=== PATIENT | male | born 1975 | race Caucasian/White ===

== ENCOUNTER 2019-07-28 13:37 | Inpatient (IN) ==
[2019-07-28 14:20] LABS: Basophils # (auto) 0.02 K/uL (0-0.2); Basophils % (auto) 0.2 %; Eosinophils # (auto) 0.05 K/uL (0-0.5); Eosinophils % (auto) 0.6 %; Hematocrit (blood only) 50.2 % (42-52); Hemoglobin 17.1 g/dL (14.0-18.0); Immature Granulocytes # (auto) 0.02 K/uL (0.00-0.02); Immature Granulocytes % (auto) 0.2 %; Lymphocytes % (auto) 23.2 %; Mean Corpuscular Hemoglobin 33.6 pg (25-34); Mean Corpuscular Hgb Conc 34.1 g/dL (32-36); Mean Corpuscular Volume 98.6 fL (80-100); Mean Platelet Volume 9.8 fL (7.4-10.4); Monocytes # (auto) 0.59 K/uL (0.11-0.59); Monocytes % (auto) 6.5 %; Neutrophils # (auto) 6.29 K/uL (1.4-6.5); Neutrophils % (auto) 69.3 %; Platelet Count 312 K/uL (130-400); RDW Coefficient of Variation 12.9 % (11.5-14.5); RDW Standard Deviation 46.4 fL (36.4-46.3); Red Blood Count 5.09 M/uL (4.7-6.1); White Blood Count 9.07 K/uL (4.8-10.8)
[2019-07-28 14:36] LABS: BUN Creatinine Ratio 10.8 (10-20); Calcium 9.1 mg/dl (8.5-10.1); Creatinine Clr Calc Pharmacy 75.5 ml/min; Est GFR (African American) 63.8; INR 1.3 (0.9-1.1); Partial Thromboplastin Time 26.8 Seconds (21.0-31.0); Potassium 4.8 mmol/L (3.5-5.1)
[2019-07-28 14:37] LABS: Albumin Level 3.4 gm/dl (3.4-5.0)
--- NOTE | 2019-07-28 14:39 | XRay Report ---
XR chest 1V portable HISTORY: 44 years-old Male Chest Pain acute atypical chest pain COMPARISON: None available TECHNIQUE: Portable AP view of the chest FINDINGS: Cardiac silhouette is mildly enlarged, possibly accentuated by technique. No pneumothorax, pleural ef fusion or overt pulmonary edema. Patchy alveolar opacities of the right lung base measure up to 5.2 c m. Mild degenerative changes of the shoulders and spine. IMPRESSION: Airspace consolidation of the right lung base measuring up to 5.2 cm suggests pneumonia in the proper clinical setting. Short-term follow-up is needed to document resolution and exclude underlying pulmo nary lesion. The above report was generated using voice recognition software. It may contain grammatical, syntax o r spelling errors. Electronically signed by: Jimi Okeefe M.D. 07/28/2019 2:37 PM
[2019-07-28 14:49] LABS: Magnesium 2.3 mg/dl (1.8-2.4); Thyroid Stimulating Hormone 6.25 uIu/ml (0.300-4.500)
[2019-07-28 14:51] LABS: Albumin Globulin Ratio 0.9 (0.9-2); Bilirubin,Total 1.3 mg/dl (0.2-1); Globulin 3.6 gm/dl (2.5-4.0); Troponin I 0.276 ng/ml (0-0.045)
[2019-07-28] MEDS ORDERED: AZITHROMYCIN 250 MG TAB PO ONE (14:56)
[2019-07-28] MEDS ORDERED: cefTRIAXone SODIUM 2,000 MG/70 ML BAG IV STA (14:56)
[2019-07-28] MEDS ORDERED: ASPIRIN CHEW 324 MG PO STA (14:56)
[2019-07-28 15:01] LABS: T4 Free Thyroxine 1.54 ng/dl (0.8-1.6)
[2019-07-28] MEDS ORDERED: OPTIRAY 320 125ml IV PRN (15:51)
--- NOTE | 2019-07-28 16:10 | CT Scan Report ---
CHEST CTA for PULMONARY ARTERIES CT DOSE: 616.78 mGy.cm HISTORY: Atypical chest pain. TECHNIQUE: Multiaxial CT images of the chest were performed following the intravenous administration of contrast to evaluate the pulmonary arteries. Maximal intensity projection images were also obtaine d. A dose lowering technique was utilized adhering to the principles of ALARA. COMPARISON STUDY: Chest 07/28/2019. FINDINGS: Trace pericardial effusion. Small right pleural effusion. Retrograde opacification of the I VC. Small amount of upper abdominal ascites. The visualized liver and spleen are unremarkable. The he art is mildly enlarged. Mildly enlarged mediastinal lymph nodes. Dominant subcarinal lymph node measu res 1.5 cm in short axis diameter. There is also a 1.7 cm AP window lymph node. No significant hilar lymphadenopathy. Normal esophagus. Normal caliber thoracic aorta. Inadequate opacification of the aor ta to assess for a dissection. No filling defects within the pulmonary arteries to suggest pulmonary embolus. No suspicious lytic are blastic osseous lesions. No pneumothorax. The central airways are pa tent. There are multiple irregular scattered airspace opacities within the bilateral mid to lower lyndon g zones, right greater than left. Findings favor a multifocal pneumonia. IMPRESSION: 1. No evidence for pulmonary embolus. 2. Multifocal irregular airspace opacities within the bilateral mid to lower lung zones, right greate r than left. This favors a pneumonia. However, follow-up recommended to ensure resolution. 3. Small right pleural effusion. 4. Mild cardiac megaly. 5. Mild mediastinal lymphadenopathy. This could be reactive. This also bears watching on future exami nations. 6. Small amount of ascites. 7. Trace pericardial effusion. Electronically signed by: Greg Real M.D. 07/28/2019 4:08 PM
--- NOTE | 2019-07-28 16:31 | Emergency Department Note ---
Entered by Kaylah Vargas acting as a scribe for Sander Dove MD History of Present Illness General Chief complaint: Cardiac Assessment Stated complaint: TIGHTNESS IN CHEST,EDEMA LEFT LEG Time Seen by Provider: 07/28/19 14:07 Source: patient and family History of Present Illness Provider complaint: chest pain Onset (ago): week(s) (several) Location: chest Radiation: non-radiation Pain Consistency: + other (worsening) Maximum Pain Intensity: 8 Quality: + other (tightness) Associated symptoms: + loss of appetite, + shortness of breath and + other (+fatigue, +abdominal bloating, -difficulty urinating, -changes in bowel movement) The patient is a 44 male w/ PMHx of bronchitis who presents to the ED w/ CC of chest pain beginning several weeks ago. The patients family reports that the patient has been experiencing worsening chest tightness for the past several weeks. They state that the patient recently was experiencing bronchitis and was prescribed a Z-crystal and Prednisone. They note that his symptoms did not alleviate his symptoms so they prescribed Doxycycline. They report that the patient has been experiencing abdominal bloating and chest tightness since then. They report that the patient has gained 10-15 pounds. They report that the patient has had a lack of sleep because of the abdominal bloating. They report that the patient had a low pressure prior to arrival. The patient states that burping alleviates his symptoms. He states that he has shortness of breath. He denies any difficulty urination. He notes that he has had normal bowel movements. He mentions that he is a former smoker and drinks occasionally. Home Medications Home Medications Medication Instructions Recorded Confirmed Type No Known Home Medications 07/28/19 07/28/19 History Allergies Allergy/AdvReac Type Severity Reaction Status Date / Time No Known Allergies Allergy Unverified 07/28/19 14:21 Past Med/Surg History Medical History Bronchitis Social History Feels Safe at Home: Yes Smoking Status: Former smoker Review of Systems See HPI for pertinent positives & negatives. and A total of 10 systems reviewed and were otherwise negative Physical Exam Vital Signs Vital Signs - 24 hr 07/28/19 13:47 07/28/19 13:54 07/28/19 13:59 Temperature 36.4 C L Temperature Source Oral Pulse Rate 121 H Pulse Rate [Apical] Respiratory Rate 24 Respiratory Effort / Characteristics Spontaneous Respiratory Depth Respiratory Pattern Blood Pressure 142/99 H Blood Pressure [Right Arm] Blood Pressure Mean 113 Blood Pressure Mean [Right Arm] Blood Pressure Position [Right Arm] Pulse Oximetry 98 94 Oxygen Delivery Method Room Air Room Air Room Air Sepsis Recent Fever Within 48 Hours No Sepsis New/Unexplained Change in Mental Status No Sepsis Action Taken by Nursing No Action Required 07/28/19 14:00 07/28/19 15:58 Temperature Temperature Source Pulse Rate Pulse Rate [Apical] 119 H Respiratory Rate 15 Respiratory Effort / Characteristics Non-Labored Respiratory Depth Normal Respiratory Pattern Regular Blood Pressure Blood Pressure [Right Arm] 118/92 Blood Pressure Mean Blood Pressure Mean [Right Arm] 100 Blood Pressure Position [Right Arm] Sitting Pulse Oximetry 94 100 Oxygen Delivery Method Room Air Room Air Sepsis Recent Fever Within 48 Hours Sepsis New/Unexplained Change in Mental Status Sepsis Action Taken by Nursing GENERAL: Well nourished, non-toxic. EYE EXAM: Normal conjunctiva. PERRL, no anisocoria and EOM's grossly intact w/o pain. OROPHARYNX: Moist mucous membranes. Grossly normal dentition. NECK: Supple, no nuchal rigidity, no adenopathy, non-tender. No signs of meningismus. LUNGS: Clear to auscultation. Normal chest wall mechanics. HEART: Tachycardic rate and regular rhythm, no MRG. ABDOMEN: Abdomen soft, non-tender, normo-active bowel sounds, no masses, no rebound or guarding. BACK: No CVA TTP. SKIN: No rashes and no bruising. UPPER EXTREMITIES: Upper extremities are grossly normal. LOWER EXTREMITIES: 3-4+ pitting bilateral symmetric lower extremity edema, without erythema or calf pain. NEURO EXAM: A&O x3, cranial nerves II-XII grossly intact, normal speech, moves all 4 extremities on command w/o issue. Procedures Free Text Procedures Limited Point of Care Cardiac Ultrasound performed by me: Indication: LE swelling, tachycardia, SOB Findings: Limited echocardiography revealed no pericardial fluid. Wall motion appeared diffusely decreased. HR 120s. Additional findings: No obvious pericardial effusion, depressed EF, no obvious septal bowing. Impression: Depressed EF, no pericardial effusion, decreased contractility Course Course 1406: The patient was evaluated in room A12B, and a complete history and physical examination were performed. 1524: I reevaluated the patient and updated him on his results. I performed a point of care US. 1527: I reviewed the patient's case with Dr. Parks- [facility] Hospitalist. He will evaluate the patient for further management. Administered Medications Ioversol (Optiray 320 125ml) 120 ml IV ONCE PRN PRN Reason: Interaction Checking Stop: 08/01/19 15:50 Last Admin: 07/28/19 15:52 Dose: 120 ml Documented by: [id number] Discontinued Medications Aspirin (Aspirin) 324 mg PO NOW STA Stop: 07/28/19 14:57 Last Admin: 07/28/19 15:09 Dose: 324 mg Documented by: [id number] Medical Decision Making Medical Records Attestation: I reviewed the patient's medical records. Home Medications Current Medication List: was personally reviewed by me Laboratory Data Attestation: I reviewed the patient's lab results. Result diagrams: 07/28/19 14:11 07/28/19 14:11 Lab Results 07/28/19 07/28/19 07/28/19 Range/Units 14:11 14:11 14:11 WBC 9.07 (4.8-10.8) K/uL RBC 5.09 (4.7-6.1) M/uL Hgb 17.1 (14.0-18.0) g/dL Hct 50.2 (42-52) % MCV 98.6 (80-100) fL MCH 33.6 (25-34) pg MCHC 34.1 (32-36) g/dL RDW Std Deviation 46.4 H (36.4-46.3) fL RDW Coeff of Leona 12.9 (11.5-14.5) % Plt Count 312 (130-400) K/uL MPV 9.8 (7.4-10.4) fL Immature Gran % (Auto) 0.2 % Neut % (Auto) 69.3 % Lymph % (Auto) 23.2 % Livingston % (Auto) 6.5 % Eos % (Auto) 0.6 % Baso % (Auto) 0.2 % Immature Gran # (Auto) 0.02 (0.00-0.02) K/uL Neut # (Auto) 6.29 (1.4-6.5) K/uL Lymph # (Auto) 2.10 (1.2-3.4) K/uL Livingston # (Auto) 0.59 (0.11-0.59) K/uL Eos # (Auto) 0.05 (0-0.5) K/uL Baso # (Auto) 0.02 (0-0.2) K/uL PT 13.0 H (9.0-12.0) Seconds INR 1.3 H (0.9-1.1) APTT 26.8 (21.0-31.0) Seconds PTT Ratio 1.0 Sodium 132 L (136-145) mmol/L Potassium 4.8 (3.5-5.1) mmol/L Chloride 100 (98-107) mmol/L Carbon Dioxide 21 (21-32) mmol/L Anion Gap 12.0 H (3-11) BUN 16 (7-18) mg/dl Creatinine 1.50 H (0.6-1.4) mg/dl Est Cr Clr Drug Dosing 75.5 ml/min Est GFR ( Amer) 63.8 Est GFR (Non-Af Amer) 55.0 BUN/Creatinine Ratio 10.8 (10-20) Glucose 141 H (70-99) mg/dl Lactate (0.4-2.0) mmol/L Calcium 9.1 (8.5-10.1) mg/dl Magnesium (1.8-2.4) mg/dl Total Bilirubin 1.3 H (0.2-1) mg/dl AST 33 (15-37) U/L ALT 20 (12-78) U/L Alkaline Phosphatase 122 H (45-117) U/L Troponin I 0.276 H* (0-0.045) ng/ml NT-Pro-B Natriuret Pep (0-450) pg/ml Total Protein 7.0 (6.4-8.2) gm/dl Albumin 3.4 (3.4-5.0) gm/dl Globulin 3.6 (2.5-4.0) gm/dl Albumin/Globulin Ratio 0.9 (0.9-2) Lipase 85 (73-393) U/L TSH (0.300-4.500) uIu/ml Free T4 (0.8-1.6) ng/dl 07/28/19 07/28/19 Range/Units 14:11 15:15 WBC (4.8-10.8) K/uL RBC (4.7-6.1) M/uL Hgb (14.0-18.0) g/dL Hct (42-52) % MCV (80-100) fL MCH (25-34) pg MCHC (32-36) g/dL RDW Std Deviation (36.4-46.3) fL RDW Coeff of Leona (11.5-14.5) % Plt Count (130-400) K/uL MPV (7.4-10.4) fL Immature Gran % (Auto) % Neut % (Auto) % Lymph % (Auto) % Livingston % (Auto) % Eos % (Auto) % Baso % (Auto) % Immature Gran # (Auto) (0.00-0.02) K/uL Neut # (Auto) (1.4-6.5) K/uL Lymph # (Auto) (1.2-3.4) K/uL Livingston # (Auto) (0.11-0.59) K/uL Eos # (Auto) (0-0.5) K/uL Baso # (Auto) (0-0.2) K/uL PT (9.0-12.0) Seconds INR (0.9-1.1) APTT (21.0-31.0) Seconds PTT Ratio Sodium (136-145) mmol/L Potassium (3.5-5.1) mmol/L Chloride (98-107) mmol/L Carbon Dioxide (21-32) mmol/L Anion Gap (3-11) BUN (7-18) mg/dl Creatinine (0.6-1.4) mg/dl Est Cr Clr Drug Dosing ml/min Est GFR ( Amer) Est GFR (Non-Af Amer) BUN/Creatinine Ratio (10-20) Glucose (70-99) mg/dl Lactate 2.3 H* (0.4-2.0) mmol/L Calcium (8.5-10.1) mg/dl Magnesium 2.3 (1.8-2.4) mg/dl Total Bilirubin (0.2-1) mg/dl AST (15-37) U/L ALT (12-78) U/L Alkaline Phosphatase (45-117) U/L Troponin I (0-0.045) ng/ml NT-Pro-B Natriuret Pep 6646 H (0-450) pg/ml Total Protein (6.4-8.2) gm/dl Albumin (3.4-5.0) gm/dl Globulin (2.5-4.0) gm/dl Albumin/Globulin Ratio (0.9-2) Lipase (73-393) U/L TSH 6.250 H (0.300-4.500) uIu/ml Free T4 1.54 (0.8-1.6) ng/dl Imaging Data Radiologist's Impression: Radiology results as stated below per my review and the radiologist's interpretation: XR chest 1V portable HISTORY: 44 years-old Male Chest Pain acute atypical chest pain COMPARISON: None available TECHNIQUE: Portable AP view of the chest FINDINGS: Cardiac silhouette is mildly enlarged, possibly accentuated by technique. No p neumothorax, pleural effusion or overt pulmonary edema. Patchy alveolar opacities of the right lung base measure up to 5.2 cm. Mild degenerative changes of the shoulders and spine. IMPRESSION: Airspace consolidation of the right lung base measuring up to 5.2 cm suggests pneumonia in the proper clinical setting. Short-term follow-up is needed to document resolution and exclude underlying pulmonary lesion. The above report was generated using voice recognition software. It may contain grammatical, syntax or spelling errors. Electronically signed by: Jimi Okeefe M.D. 07/28/2019 2:37 PM CHEST CTA for PULMONARY ARTERIES CT DOSE: 616.78 mGy.cm HISTORY: Atypical chest pain. TECHNIQUE: Multiaxial CT images of the chest were performed following the intravenous administration of contrast to evaluate the pulmonary arteries. Maximal intensity projection images were also obtained. A dose lowering technique was utilized adhering to the principles of ALARA. COMPARISON STUDY: Chest 07/28/2019. FINDINGS: Trace pericardial effusion. Small right pleural effusion. Retrograde opacification of the IVC. Small amount of upper abdominal ascites. The visualized liver and spleen are unremarkable. The heart is mildly enlarged. Mildly enlarged mediastinal lymph nodes. Dominant subcarinal lymph node measures 1.5 cm in short axis diameter. There is also a 1.7 cm AP window lymph node. No significant hilar lymphadenopathy. Normal esophagus. Normal caliber thoracic aorta. Inadequate opacification of the aorta to assess for a dissection. No filling defects within the pulmonary arteries to suggest pulmonary embolus. No suspicious lytic are blastic osseous lesions. No pneumothorax. The central airways are patent. There are multiple irregular scattered airspace opacities within the bilateral mid to lower lung zones, right greater than left. Findings favor a multifocal pneumonia. IMPRESSION: 1. No evidence for pulmonary embolus. 2. Multifocal irregular airspace opacities within the bilateral mid to lower lung zones, right greater than left. This favors a pneumonia. However, follow-up recommended to ensure resolution. 3. Small right pleural effusion. 4. Mild cardiac megaly. 5. Mild mediastinal lymphadenopathy. This could be reactive. This also bears kevin bryson on future examinations. 6. Small amount of ascites. 7. Trace pericardial effusion. Electronically signed by: Greg Real M.D. 07/28/2019 4:08 PM ECG Data Attestation: I personally reviewed and interpreted this ECG as follows: Indication: + chest pain Rate (beats per minute): 121 Rhythm: + sinus tachycardia ECG Findings: + Q waves (anteriorly ) and + Other (Normal intervals, no obvious ischemic changes) Blood Pressure Blood Pressure Findings: Elevated blood pressure Blood Pressure Disposition: further management by hospitalist BRYAN Diggs Differential diagnosis: Etiologies such as metabolic, infection, hypo/hyper glycemia, electrolyte abnormalities, cardiac sources, intracerebral event, toxicologic, neurologic, as well as others were entertained. The patient is a 44 male w/ PMHx of bronchitis who presents to the ED w/ CC of chest pain beginning several weeks ago. Patient was seen and evaluated the bedside. The patient has had increasing fatigue associated mild exertional dyspnea. Lower extremity swelling. The patient did have blood work completed. The patient does have a positive troponin and BNP. The patient does appear volume overloaded. I did perform a [id number] ultrasound of the bedside which does not show any obvious pericardial effusion but the patient does appear to have diffuse hypokinesis and decreased ejection fraction. Did order a CAT scan of the chest. Patient was evidently admitted to the medicine service. Patient was given aspirin. Patient CT shows trace pericardial and right-sided pleural effusion. Likely pneumonia. No PE. Impression & Plan CHF (congestive heart failure), Elevated troponin, Pneumonia Discharge Plan Visit Data Chief Complaint: Cardiac Assessment Stated Complaint: TIGHTNESS IN CHEST,EDEMA LEFT LEG ED Provider: Sander Dove Discharge Problem: CHF (congestive heart failure), Elevated troponin, Pneumonia Patient Disposition: Being Evaluated by Hospitalist Forms Stand Alone Forms: My [facility] Prescriptions Prescriptions: No Action No Known Home Medications RF: 0 Referrals Referrals: Benedict Avalos MD [Primary Care Provider] - Discharge Problem: CHF (congestive heart failure) Qualifiers: Heart failure type: unspecified Heart failure chronicity: unspecified Qualified Code(s): I50.9 - Heart failure, unspecified Pneumonia Qualifiers: Pneumonia type: due to unspecified organism Laterality: right Lung location: lower lobe of lung Qualified Code(s): J18.1 - Lobar pneumonia, unspecified organism The scribe's documentation has been prepared under my direction and personally reviewed by me in its entirety. I confirm that the note above accurately reflect s all work, treatment, procedures, and medical decision making performed by me.
[2019-07-28 17:19] LABS: Appearance Urine Clear (Clear); Bacteria Urine Automated Negative (Negative); Blood Urine Negative (Negative); Color Urine Dark Yellow; Epithelial Cell Urine Auto >30 /lpf (0-5); Glucose Urine UA Negative (Negative); Ketones Urine Trace (Negative); Leukocyte Esterase Urine Trace (Negative); Nitrite Urine Positive (Negative); Protein Urine 2+ (Negative); Specific Gravity Urine > 1.045 (1.000-1.030); Urobilinogen Urine Negative (Negative); pH Urine 5.5 (4.5-7.5)
[2019-07-28 17:22] LABS: Bilirubin Urine 1+ (Negative)
[2019-07-28 17:23] LABS: Ictotest Urine Positive (Negative)
[2019-07-28 17:42] LABS: Cast Urine Automated >30 /lpf (0-5)
--- NOTE | 2019-07-28 17:46 | History & Physical Report ---
Date of Service July 28, 2019 Assessment & Plan (1) CHF (congestive heart failure): Admit patient to PCU on telemetry for acute onset of congestive heart failure. Discussed with -cardiology. His opinion was to treat patient as acute onset of congestive heart failure with Lasix, aspirin, heparin drip for elevated troponin. TTE pending Lipid panel pending Trend down BNP Replenish electrolytes as needed Check CBC and CMP daily Free water restriction to 1200 mils p.o. daily. Low-sodium diet Furosemide 40 mg IV twice daily, with expectant loss of 1.5 L/day. Keep potassium above 4 and magnesium above 2. Consult cardiology Consults CHF clinic for follow-up. Patient would possibly need cardiac catheterization, please discuss further with cardiology. DVT prophylaxis; patient is on heparin drip for elevated troponin. Full code Present on Admission?: Yes (2) Acute kidney injury: Avoid nephrotoxic agents. Due to emergent issue of acute onset of congestive heart failure patient is on furosemide 40 mg IV twice daily. Monitor closely. Decrease the dose if this is severely affecting patient's kidneys. Present on Admission?: Yes (3) Urinary tract infection: Patient urine is not a clean-catch but it is difficult at this point to rule out urinary tract infection. We will presumptively continue ceftriaxone that was already started in the emergency room. Present on Admission?: Yes (4) Elevated troponin: Could be related to demand ischemia, but NSTEMI is not excluded. Restarted patient on heparin drip and trend down troponin. Present on Admission?: Yes (5) Pneumonia: Procalcitonin is negative 0.1. Patient less likely has pneumonia, and infiltrate seen on the CT scan could be result of congestive heart failure rather than pneumonia. He was treated for 5 weeks with Z-Xavi and doxycycline. Patient is now on ceftriaxone for urinary tract infection. Present on Admission?: Yes (6) Discharge planning issues: Expectant stayed more than 2 nights. Discharge home when clinically improved. Present on Admission?: Yes History of Present Illness Chief Complaint: Chest pain, abdominal pain weight gain and swelling all over his body Primary Care Provider: Benedict Avalos MD Patient is a 44 years old male without significant past medical history except for bronchitis that was treated with doxycycline, azithromycin and prednisone approximately for the past 5 weeks as an outpatient. Patient states that for the past several days he is gaining weight and his legs are swelling. He has constant urge to burp and feels a lot of pressure in his abdomen and this morning he experienced a lots of chest pain which improved during the day but he still feels congested. Patient has significant family history that he is a grandfather young from the heart issues but he was not sure what was his age when he . Patient gained approximately 10 to 15 pounds in the past several days. He said that his sleep is significantly disturbed because his abdomen is bloated. He reports having regular bowel movements. On occasion patient feels short of breath. Patient reports being exposed to lots of stress lately but does not go further and explanation what was stressed about. Patient reports that he smoked in the past but quit smoking for several years and he drinks only occasionally. He denies any drug abuse. At the present time patient denies fever, chills, chest pain, abdominal pain, frequency, urgency, syncope near syncope, melena hematuria, hemoptysis or bruising. He is pleasant in person and agreeable with treatment. Labs are reviewed: Which shows white blood cell of 9.07, hemoglobin 17.1, hematocrit 50.2, platelets 312, there is no left shift. PT 13, INR 1.3 APTT 26.8, PTT 1. Sodium 132, potassium 4.8, chloride 100, carbon dioxide 21 anion gap 12, BUN 16, creatinine 1.5-previously creatinine was 1.24 on July 24, 2019, GFR 55, lactic acid 2.3, calcium 9.1 magnesium 2.3: Total bili 1.3, AST 33, ALT 20, alkaline phosphatase 122, troponin 0.276, alkaline phosphatase 6646, TSH of 6.25 and free T4 1.54 subclinical hypothyroidism. Urine infection positive for nitrates and trace leukocyte esterase with many epithelial cells over 30 bacteria negative, does not appear to be a clean-catch. CTA of chest to rule out pulmonary embolism shows no evidence of pulmonary embolus, multifocal irregular 8 space opacities within the bilateral mid to lower lung zones, right greater than left, this favors a pneumonia. Small right pleural effusion, mild cardiomegaly. Mild mediastinal lymphadenopathy. This could be reactive. Small amount of ascites. Trace pericardial effusion. Additional decision was made to admit patient for onset congestive heart failure at PCU on telemetry. Allergies Allergy/AdvReac Type Severity Reaction Status Date / Time No Known Allergies Allergy Unverified 07/28/19 14:21 Home Medications Home Medications Medication Instructions Recorded Confirmed Type No Known Home Medications 07/28/19 07/28/19 History Past Med/Surg History Medical History Bronchitis Social History Preferred Language: Citizen Of [place] Beliefs That Will Affect Care: None Current Living Situation: Alone Feels Safe at Home: Yes Safety Concerns: Feels Safe At This Time Smoking Status: Former smoker Hx Alcohol Use: Yes Alcohol type: beer Hx Substance Use: No Review of Systems Review of Systems: All systems reviewed & are unremarkable except as noted in HPI & below Physical Exam Constitutional: WD/WN, vitals as above well developed, + ill appearing and average body habitus Eyes: PERRL, conjunctivae normal, anicteric sclerae ENMT: external ear and nose normal, oropharynx normal Neck: trachea midline, no thyromegaly Respiratory: Auscultation: + crackles and + wheezes Cardiovascular: Heart Sounds: normal S1 and normal S2 Palpation: + palpable S3 Vessels: + JVD and dorsalis pedis pulses present Extremities: + pedal edema and + edema (Patient body appears to be a dermatosis or up until the umbilicus. Pitting edema of lower extremity 2+.) Gastrointestinal (Abdomen): normal bowel sounds, soft, nontender, no hepatosplenomegaly Musculoskeletal: no cyanosis or clubbing, extremities motor strength 5/5 Skin: no rashes, warm and dry Neurologic: patellar DTR's 2+ bilat, sensation intact Genitourinary: no testicular masses, no penis abnormality Lymphatic: no cervical or axillary lymphadenopathy Results & Data Vital Signs (Past 12 Hours) Vital Signs Temp Pulse Pulse Resp BP BP Pulse Ox 07/28/19 17:21 117/92 07/28/19 17:00 114 H 19 94 07/28/19 15:58 119 H 15 118/92 100 07/28/19 14:00 94 07/28/19 13:59 94 07/28/19 13:47 36.4 C L 121 H 24 142/99 H 98 Code Status & VTE Plan Code Status Full code VTE Prophylaxis Plan VTE Prophylaxis will be ordered: Yes PG Care Time/CCT Total # of Minutes Spent Total Time Spent with Patient: Total time spent is greater than 50% in coordination of care (as documented) at patient's floor/unit and/or counseling patient: (1) CHF (congestive heart failure) Heart failure chronicity: unspecified Heart failure type: unspecified Qualified Code(s): I50.9 - Heart failure, unspecified (2) Pneumonia Laterality: right Lung location: lower lobe of lung Pneumonia type: due to unspecified organism Qualified Code(s): J18.1 - Lobar pneumonia, unspecified organism
[2019-07-28] MEDS ORDERED: MAGNESIUM HYDROXIDE SUSP 30 ML UDC PO PRN (18:55)
[2019-07-28] MEDS ORDERED: ALUMINUM/MAGNESIUM SUSP 30 ML UDC PO PRN (18:55)
[2019-07-28] MEDS ORDERED: FUROSEMIDE 40 MG/4 ML VIAL IV STA (18:55)
[2019-07-28] MEDS ORDERED: POLYETHYLENE (MIRALAX) 17 GM PACK PO PRN (18:55)
[2019-07-28] MEDS ORDERED: HEPARIN IV BOLUS 7,000 UNITS in SYRINGE 0 ML IV ONE (19:30)
[2019-07-28] MEDS: HEPARIN SODIUM/DEXTROSE 25,000 UNITS/500 ML BAG IV SCH (19:51)
[2019-07-28] MEDS ORDERED: FUROSEMIDE 40 MG in SYRINGE 0 ML IV ONE (20:45)
[2019-07-28] MEDS: cefTRIAXone SODIUM 2,000 MG in DEXTROSE 5% 50 ML IV SCH (21:12)
[2019-07-28] MEDS: LACTOBACILLUS ACIDOPHILUS (FLORANEX) TAB PO SCH (21:12)
[2019-07-28] MEDS: ATORVASTATIN 40 MG TAB PO SCH (21:13)
[2019-07-28] MEDS: ASPIRIN 81 MG ECTAB PO SCH (21:13)
[2019-07-29 01:44] LABS: Basophils # (auto) 0.04 K/uL (0-0.2); Basophils % (auto) 0.4 %; Eosinophils # (auto) 0.02 K/uL (0-0.5); Eosinophils % (auto) 0.2 %; Hematocrit (blood only) 42.4 % (42-52); Hemoglobin 14.9 g/dL (14.0-18.0); Immature Granulocytes # (auto) 0.02 K/uL (0.00-0.02); Immature Granulocytes % (auto) 0.2 %; Lymphocytes # (auto) 3.13 K/uL (1.2-3.4); Lymphocytes % (auto) 32.1 %; Mean Corpuscular Hemoglobin 33.9 pg (25-34); Mean Corpuscular Hgb Conc 35.1 g/dL (32-36); Mean Corpuscular Volume 96.4 fL (80-100); Mean Platelet Volume 9.5 fL (7.4-10.4); Monocytes # (auto) 0.83 K/uL (0.11-0.59); Monocytes % (auto) 8.5 %; Neutrophils # (auto) 5.72 K/uL (1.4-6.5); Neutrophils % (auto) 58.6 %; Platelet Count 285 K/uL (130-400); RDW Coefficient of Variation 12.7 % (11.5-14.5); RDW Standard Deviation 44.3 fL (36.4-46.3); White Blood Count 9.76 K/uL (4.8-10.8)
[2019-07-29 02:11] LABS: Albumin Level 2.6 gm/dl (3.4-5.0); BUN Creatinine Ratio 12.7 (10-20); Calcium 8.4 mg/dl (8.5-10.1); Creatinine Clr Calc Pharmacy 79.2 ml/min; Est GFR (African American) 67.6; Est GFR (Non-African American) 58.3; Potassium 4.3 mmol/L (3.5-5.1)
[2019-07-29 02:16] LABS: Partial Thromboplastin Time 81.8 Seconds (21.0-31.0)
[2019-07-29 02:18] LABS: Albumin Globulin Ratio 0.8 (0.9-2); Bilirubin,Total 0.8 mg/dl (0.2-1); Globulin 3.1 gm/dl (2.5-4.0); Total Protein 5.7 gm/dl (6.4-8.2); Troponin I 12.1 ng/ml (0-0.045)
[2019-07-29 05:59] LABS: Estimated Average Glucose 126 mg/dl
[2019-07-29] MEDS ORDERED: ASPIRIN 325 MG ECTAB PO SCH (09:00)
[2019-07-29 09:44] LABS: Partial Thromboplastin Ratio 1.9
--- NOTE | 2019-07-29 09:49 | Hospitalist Progress Note ---
Date of Service July 29, 2019 Assessment & Plan (1) CHF (congestive heart failure): Continue admit patient to PCU on telemetry for acute onset of congestive heart failure. Appreciate cardiology recommendations: Patient accepted to undergo cardiac catheterization for elevated troponin, and global hypokinesis with ejection fraction of 15 to 20% involving his right ventricle seen at the TTE. Patient will need a LifeVest upon discharge and beta-jayden as soon as out of very acute phase. Waiting for further cardiology recommendations. Lipid panel-triglycerides 50 normal cholesterol 81 normal LDL 40 normal VLDL 10 normal HDL 31. Patient was started on atorvastatin 40 mg every afternoon even though his lipid panel profile is favorable. Continue to follow BMP Replenish electrolytes as needed Check CBC and CMP daily Free water restriction to 1200 mils p.o. daily. Low-sodium diet Furosemide 40 mg IV twice daily, with expectant loss of 1.5 L/day. Keep potassium above 4 and magnesium above 2. Consult cardiology Consults CHF clinic for follow-up. DVT prophylaxis; patient is on heparin drip for elevated troponin. Full code (2) Acute kidney injury: Avoid nephrotoxic agents. Due to emergent issue of acute onset of congestive heart failure patient is on furosemide 40 mg IV twice daily. Monitor closely. Decrease the dose if this is severely affecting patient's kidneys. (3) Urinary tract infection: Patient urine is not a clean-catch but it is difficult at this point to rule out urinary tract infection.Continue ceftriaxone that was already started in the emergency room. (4) Elevated troponin: Troponin is trending up 0.276-->9.520-->12.100 (5) Pneumonia: Procalcitonin is negative 0.1. Patient less likely has pneumonia, and infiltrate seen on the CT scan could be result of congestive heart failure rather than pneumonia. He was treated for 5 weeks with Z-Xavi and doxycycline. Patient is now on ceftriaxone for urinary tract infection. (6) Discharge planning issues: Expectant stayed more than 2 nights. Discharge home when clinically improved. Subjective Pt is seen and examined at the bedside. Patient is sitting up in the bed comfortably, does not appear in distress. Patient had 2 episodes of ventricular tachycardia which are both monomorphic, 1 9 beats and 110 beats in duration. Heart rate ranges from 150-170 bpm. Patient is n.p.o. for cardiac catheterization. Origin of his acute onset of congestive heart failure is not completely clear patient has cardiomyopathy. He is troponin raise from 0.276 two 9.5 and 12.1. Patient seen by cardiology and evaluated. Patient denies fever, chills, chest pain, shortness of breath at rest, abdominal pain(only abdominal discomfort), dysuria, hematuria near syncope. Continues continuously on heparin drip. Review of Systems Review of Systems: All systems reviewed & are unremarkable except as noted in HPI & below Physical Exam Constitutional: WD/WN, vitals as above well developed, + ill appearing and average body habitus Eyes: PERRL, conjunctivae normal, anicteric sclerae ENMT: external ear and nose normal, oropharynx normal Neck: trachea midline, no thyromegaly Respiratory: Auscultation: + crackles and + wheezes Cardiovascular: Heart Sounds: normal S1 and normal S2 Palpation: + palpable S3 Vessels: + JVD and dorsalis pedis pulses present Extremities: + pedal edema and + edema (Patient body appears to be a dermatosis or up until the umbilicus. Pitting edema of lower extremity 2+.) Gastrointestinal (Abdomen): normal bowel sounds, soft, nontender, no hepatosplenomegaly Musculoskeletal: no cyanosis or clubbing, extremities motor strength 5/5 Skin: no rashes, warm and dry Neurologic: patellar DTR's 2+ bilat, sensation intact Genitourinary: no testicular masses, no penis abnormality Lymphatic: no cervical or axillary lymphadenopathy Results & Data Vital Signs (Past 12 Hours) Vital Signs Temp Pulse Pulse Resp BP Pulse Ox 07/29/19 08:15 36.4 C L 102 H 17 119/81 97 07/29/19 07:55 104 H 07/29/19 04:48 36.4 C L 108 H 18 110/75 97 07/28/19 23:03 36.3 C L 117 H 20 114/81 20 L PG Care Time/CCT Total # of Minutes Spent Total Time Spent with Patient: Total time spent is greater than 50% in coordination of care (as documented) at patient's floor/unit and/or counseling patient: (1) CHF (congestive heart failure) Heart failure chronicity: unspecified Heart failure type: unspecified Qualified Code(s): I50.9 - Heart failure, unspecified (2) Pneumonia Laterality: right Lung location: lower lobe of lung Pneumonia type: due to unspecified organism Qualified Code(s): J18.1 - Lobar pneumonia, unspecified organism
[2019-07-29] MEDS: FUROSEMIDE 40 MG in SYRINGE 0 ML IV SCH ×2 (10:39→16:40)
[2019-07-29] MEDS: POTASSIUM CHLORIDE 20 MEQ TABCR PO SCH (10:40)
[2019-07-29] MEDS: LACTOBACILLUS ACIDOPHILUS (FLORANEX) TAB PO SCH ×4 (10:40→21:00)
[2019-07-29] MEDS: ATORVASTATIN 40 MG TAB PO SCH (10:41)
[2019-07-29] MEDS: ASPIRIN 81 MG ECTAB PO SCH (10:41)
[2019-07-29] MEDS: OMEGA-3 (PURIFIED FISH OIL) 1 GM CAP PO SCH ×2 (10:48→21:00)
--- NOTE | 2019-07-29 11:57 | Cardiology Consultation ---
Date of Consultation July 29, 2019 Assessment & Plan (1) CHF (congestive heart failure): He presents in congestive heart failure with symptomatically started perhaps 5 weeks ago, that was treated as a bronchitis or pulmonary condition. He did not have edema then so I cannot tell if that was correct and he has subsequently developed congestive heart failure although it is possible that this was congestive heart failure all along. He needs to be treated with diuresis as well as fluid and salt restriction and we need to try to find a cause of his heart failure. (2) Cardiomyopathy: He has global hypokinesis of a severe extent, his left ventricular ejection fraction is 15 to 20% and he has right ventricular involvement as well which could be secondary to his left ventricular dysfunction. The cause is not clear but it is worrisome that his troponin is rising, being quite low although positive on arrival and this morning it was up to 12. Although it does not seem likely that this is an ischemic cardiomyopathy we need to exclude it and I do not think we can do stress testing, etc. with a rising troponin. I think we need a catheterization, and if negative we can look into nonischemic causes. He is agreeable to a catheterization today. (3) Elevated troponin: His troponin has increased significantly since arrival (It was only 0.276 on arrival, yesterday evening it was 9.5 to and early this morning 12.1). This is really not in keeping with his symptoms will suggest a much longer time course, however it is worrisome and does not have the typical character of demand ischemia. We need to evaluate him with catheterization. (4) NSVT (nonsustained ventricular tachycardia): He has had several episodes of nonsustained ventricular tachycardia since arrival. There are 2 episodes which are both monomorphic, one 9 beats and one 10 beats in duration. The heart rate ranges from 150 to 170 bpm. This is worrisome with his cardiomyopathy. He will certainly need beta-blockade as soon as we are able to, we need to consider a LifeVest upon discharge. 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 It was initially thought to be a bronchitis and he was treated with several courses of antibiotics, as far as I know no cardiac testing was performed and I believe no chest x-ray either. Part of that might be insurance. In any case he was not having trouble with peripheral edema although he was somewhat fatigued when this initially started 5 or 6 weeks ago, however over the last 2 to 3 weeks he has been developing some peripheral edema which has been progressive. It became worse over the last week or so and he was also having episodes of chest pressure and some shortness of breath. He has also been having orthopnea requiring him to sit up to breathe comfortably. The chest pressure may have occurred a little bit around the onset of his symptoms, but was much worse in the last week or so and especially on the day of presentation. He also noted that his heart rate has been elevated, his heart rate has been running in the 100+ range for the most part for the past 5 or 6 weeks and his blood pressure has not been elevated. On arrival here on March 27, 2019 he was noted to be in congestive heart failure and has a low ejection fraction, the cause is not clear. He does have elevated cardiac enzymes. He does have some risk factors for coronary disease including a prior smoking history although I cannot get a good sense for how much he smoked and he does not currently smoke, he does have a family history on both sides and his grandparents but not his mother. He appears physically fit, he is not overweight. At the time of my evaluation this morning he was feeling better than yesterday after initial treatment with diuresis and is not having much in the way of shortness of breath currently sitting up in bed. Allergies Allergy/AdvReac Type Severity Reaction Status Date / Time No Known Allergies Allergy Unverified 07/28/19 14:21 Home Medications Home Medications Medication Instructions Recorded Confirmed Type No Known Home Medications 07/28/19 07/28/19 History Patient History Medical History Bronchitis Social History Preferred Language: Iraqi Beliefs That Will Affect Care: None Current Living Situation: Alone Feels Safe at Home: Yes Safety Concerns: Feels Safe At This Time Smoking Status: Former smoker Hx Alcohol Use: Yes Alcohol type: beer Hx Substance Use: No Review of Systems Review of Systems: All systems reviewed & are unremarkable except as noted in HPI & below Physical Exam Physical Exam: Constitutional: Alert, cooperative and in no distress. HEENT: Unremarkable Neck: No jugular venous distention, carotid pulses are normal and equal bilaterally without bruits. Pulmonary: Decreased breath sounds at both bases, crackles at the left base. Cardiac: Regular rhythm with no murmur, gallop or rub. Abdomen: Soft, nontender with normal bowel sounds. Extremities: No edema. Distal pulses intact. Neurologic: No focal findings. Gait is steady. Skin: No rash, ecchymoses or petechiae. Results & Data Vital Signs (Past 12 Hours) Vital Signs Temp Pulse Pulse Resp BP Pulse Ox 07/29/19 11:41 36.6 C 103 H 17 118/82 97 07/29/19 08:15 36.4 C L 102 H 17 119/81 97 07/29/19 07:55 104 H 07/29/19 04:48 36.4 C L 108 H 18 110/75 97 Laboratory Results Abnormal lab results 07/28/19 07/28/19 07/28/19 Range/Units 14:11 14:11 14:11 RBC (4.7-6.1) M/uL RDW Std Deviation 46.4 H (36.4-46.3) fL Brown # (Auto) (0.11-0.59) K/uL PT 13.0 H (9.0-12.0) Seconds INR 1.3 H (0.9-1.1) APTT (21.0-31.0) Seconds Sodium 132 L (136-145) mmol/L Carbon Dioxide (21-32) mmol/L Anion Gap 12.0 H (3-11) Creatinine 1.50 H (0.6-1.4) mg/dl Glucose 141 H (70-99) mg/dl Hemoglobin A1c (4.5-5.6) % Lactate (0.4-2.0) mmol/L Calcium (8.5-10.1) mg/dl Total Bilirubin 1.3 H (0.2-1) mg/dl AST (15-37) U/L Alkaline Phosphatase 122 H (45-117) U/L Troponin I 0.276 H* (0-0.045) ng/ml NT-Pro-B Natriuret Pep (0-450) pg/ml Total Protein (6.4-8.2) gm/dl Albumin (3.4-5.0) gm/dl Albumin/Globulin Ratio (0.9-2) TSH (0.300-4.500) uIu/ml Ur Specific Cyril (1.000-1.030) Urine Protein (Negative) Urine Ketones (Negative) Urine Nitrite (Negative) Urine Bilirubin (Negative) Ur Leukocyte Esterase (Negative) Urine RBC (Auto) (0-4) /hpf U Hyaline Cast (Auto) (0-5) /lpf U Epithel Cells (Auto) (0-5) /lpf 07/28/19 07/28/19 07/28/19 Range/Units 14:11 15:15 16:57 RBC (4.7-6.1) M/uL RDW Std Deviation (36.4-46.3) fL Brown # (Auto) (0.11-0.59) K/uL PT (9.0-12.0) Seconds INR (0.9-1.1) APTT (21.0-31.0) Seconds Sodium (136-145) mmol/L Carbon Dioxide (21-32) mmol/L Anion Gap (3-11) Creatinine (0.6-1.4) mg/dl Glucose (70-99) mg/dl Hemoglobin A1c (4.5-5.6) % Lactate 2.3 H* (0.4-2.0) mmol/L Calcium (8.5-10.1) mg/dl Total Bilirubin (0.2-1) mg/dl AST (15-37) U/L Alkaline Phosphatase (45-117) U/L Troponin I (0-0.045) ng/ml NT-Pro-B Natriuret Pep 6646 H (0-450) pg/ml Total Protein (6.4-8.2) gm/dl Albumin (3.4-5.0) gm/dl Albumin/Globulin Ratio (0.9-2) TSH 6.250 H (0.300-4.500) uIu/ml Ur Specific Cyril > 1.045 H (1.000-1.030) Urine Protein 2+ H (Negative) Urine Ketones Trace H (Negative) Urine Nitrite Positive A (Negative) Urine Bilirubin 1+ H (Negative) Ur Leukocyte Esterase Trace H (Negative) Urine RBC (Auto) 5-10 H (0-4) /hpf U Hyaline Cast (Auto) >30 H (0-5) /lpf U Epithel Cells (Auto) >30 H (0-5) /lpf 07/28/19 07/29/19 07/29/19 Range/Units 20:13 01:31 01:31 RBC (4.7-6.1) M/uL RDW Std Deviation (36.4-46.3) fL Brown # (Auto) (0.11-0.59) K/uL PT (9.0-12.0) Seconds INR (0.9-1.1) APTT 81.8 H* (21.0-31.0) Seconds Sodium 134 L (136-145) mmol/L Carbon Dioxide 20 L (21-32) mmol/L Anion Gap (3-11) Creatinine 1.43 H (0.6-1.4) mg/dl Glucose 114 H (70-99) mg/dl Hemoglobin A1c (4.5-5.6) % Lactate (0.4-2.0) mmol/L Calcium 8.4 L (8.5-10.1) mg/dl Total Bilirubin (0.2-1) mg/dl AST 82 H (15-37) U/L Alkaline Phosphatase (45-117) U/L Troponin I 9.520 H* 12.100 H* (0-0.045) ng/ml NT-Pro-B Natriuret Pep 7019 H (0-450) pg/ml Total Protein 5.7 L (6.4-8.2) gm/dl Albumin 2.6 L (3.4-5.0) gm/dl Albumin/Globulin Ratio 0.8 L (0.9-2) TSH (0.300-4.500) uIu/ml Ur Specific Cyril (1.000-1.030) Urine Protein (Negative) Urine Ketones (Negative) Urine Nitrite (Negative) Urine Bilirubin (Negative) Ur Leukocyte Esterase (Negative) Urine RBC (Auto) (0-4) /hpf U Hyaline Cast (Auto) (0-5) /lpf U Epithel Cells (Auto) (0-5) /lpf 11/18/19 11/18/19 11/18/19 Range/Units 01:31 01:31 09:05 RBC 4.40 L (4.7-6.1) M/uL RDW Std Deviation (36.4-46.3) fL Brown # (Auto) 0.83 H (0.11-0.59) K/uL PT (9.0-12.0) Seconds INR (0.9-1.1) APTT 52.0 H* (21.0-31.0) Seconds Sodium (136-145) mmol/L Carbon Dioxide (21-32) mmol/L Anion Gap (3-11) Creatinine (0.6-1.4) mg/dl Glucose (70-99) mg/dl Hemoglobin A1c 6.0 H (4.5-5.6) % Lactate (0.4-2.0) mmol/L Calcium (8.5-10.1) mg/dl Total Bilirubin (0.2-1) mg/dl AST (15-37) U/L Alkaline Phosphatase (45-117) U/L Troponin I (0-0.045) ng/ml NT-Pro-B Natriuret Pep (0-450) pg/ml Total Protein (6.4-8.2) gm/dl Albumin (3.4-5.0) gm/dl Albumin/Globulin Ratio (0.9-2) TSH (0.300-4.500) uIu/ml Ur Specific Cyril (1.000-1.030) Urine Protein (Negative) Urine Ketones (Negative) Urine Nitrite (Negative) Urine Bilirubin (Negative) Ur Leukocyte Esterase (Negative) Urine RBC (Auto) (0-4) /hpf U Hyaline Cast (Auto) (0-5) /lpf U Epithel Cells (Auto) (0-5) /lpf Diagnostic Findings His electrocardiogram on arrival July 28, 2019 at 1343 shows sinus tachycardia at 120 bpm, he has some nonspecific ST-T abnormalities but no acute changes. A repeat electrocardiogram this morning at 742 shows sinus tachycardia at 101 with several premature ventricular beats, otherwise similar to yesterday. A chest x-ray done on arrival is a portable unit shows cardiomegaly and no overt pulmonary edema. A CT angiogram showed no pulmonary embolism, a small right pleural effusion and a small amount of ascites. Both of these studies suggested pneumonia as a cause. An echocardiogram done this morning shows a moderately dilated left ventricle with severe left ventricular dysfunction felt to be 15 to 20%. There is global hypokinesis and moderate concentric left ventricular hypertrophy. The right ventricle was also moderately dilated with severely reduced function. He did have moderate mitral regurgitation and mild pulmonary hypertension. Telemetry: Sinus tachycardia and frequent premature ventricular beats. He also had 2 runs of nonsustained ventricular tachycardia, 9 and 10 beats in duration. PG Care Time/CCT Total # of Minutes Spent Total Time Spent with Patient: Total time spent is greater than 50% in coordination of care (as documented) at patient's floor/unit and/or counseling patient: (1) CHF (congestive heart failure) Heart failure chronicity: unspecified Heart failure type: unspecified Qualified Code(s): I50.9 - Heart failure, unspecified
[2019-07-29] MEDS ORDERED: fentaNYL citrate 100 MCG/2 ML VIAL ONE ×2 (12:08→13:38)
[2019-07-29] MEDS ORDERED: MIDAZOLAM HCL 1 MG/ML 2ML VIAL ONE ×2 (12:08→13:20)
[2019-07-29] MEDS ORDERED: NiCARDipine HCL INJ 2.5 MG/ML 10 ML AMP ONE (12:09)
[2019-07-29] MEDS ORDERED: NITROGLYCERIN/D5W 100MCG/ML 20ML SYR ONE (12:09)
[2019-07-29] MEDS ORDERED: HEPARIN (PORCINE) 1000 UNIT/ML 10 ML (CATH LAB USE ONLY) ONE (12:09)
--- NOTE | 2019-07-29 14:38 | Pre Anesthesia Assessment ---
Date of Service July 29, 2019 Pre Sedation Assessment Vital Signs Temp Pulse Pulse Pulse Resp BP Pulse Ox 07/29/19 14:25 99 H 20 116/82 96 07/29/19 14:20 98 H 20 118/92 95 07/29/19 14:15 100 H 20 114/83 94 07/29/19 14:10 99 H 20 117/86 93 07/29/19 14:06 100 H 20 114/86 96 07/29/19 11:41 97.9 F 103 H 17 118/82 97 07/29/19 08:15 97.5 F L 102 H 17 119/81 97 07/29/19 07:55 104 H 07/29/19 04:48 97.5 F L 108 H 18 110/75 97 07/28/19 23:03 97.3 F L 117 H 20 114/81 20 L 07/28/19 19:10 97.5 F L 115 H 18 114/81 98 07/28/19 18:28 117 H 18 114/85 99 07/28/19 17:21 117/92 07/28/19 17:00 114 H 19 94 07/28/19 15:58 119 H 15 118/92 100 Cardiovascular + regular rate no murmur + edema Respiratory no respiratory distress and no labored breathing + rales Pre-Sedation Airway Assessment Smoking Status: Former smoker Hx Sleep Apnea: No Short, Thick Neck: No Thyromental Distance: > or= 3.5 Finger Breadths Oral Cavity: + Chipped Teeth Mallampati Class: I ASA: ASA2 NPO Status Date of Last Intake of Fluids: 07/29/19 Time of Last Intake of Fluids: 09:00 Date of Last Intake of Solid Food: 07/28/19 Time of Last Intake of Solid Foods: 20:00 Procedure Planning Contraindications for Sedation: none Current Medications Reviewed: Yes Notes The planned sedation has been discussed with the patient. Informed Consent was obtained. I have identified the patient, determined the appropriateness of sedation and have assessed the patient immediately prior to the procedure. All medicine(s) and interventions are by my order.
--- NOTE | 2019-07-29 14:38 | Post Anesthesia Assessment ---
Date of Service July 29, 2019 Post Sedation Assessment Vital Signs Temp Pulse Pulse Pulse Resp BP Pulse Ox 07/29/19 14:25 99 H 20 116/82 96 07/29/19 14:20 98 H 20 118/92 95 07/29/19 14:15 100 H 20 114/83 94 07/29/19 14:10 99 H 20 117/86 93 07/29/19 14:06 100 H 20 114/86 96 07/29/19 11:41 97.9 F 103 H 17 118/82 97 07/29/19 08:15 97.5 F L 102 H 17 119/81 97 07/29/19 07:55 104 H 07/29/19 04:48 97.5 F L 108 H 18 110/75 97 07/28/19 23:03 97.3 F L 117 H 20 114/81 20 L 07/28/19 19:10 97.5 F L 115 H 18 114/81 98 07/28/19 18:28 117 H 18 114/85 99 07/28/19 17:21 117/92 07/28/19 17:00 114 H 19 94 07/28/19 15:58 119 H 15 118/92 100 Recovery Score Activity: Moves 4 extremities Respiration: Deep Breath/Cough Circulation: +/-20% PreAnes Value Consciousness: Fully Awake Oxygen Saturation: > 92% On Room Air Post Anesthesia Score: 10 Discharge Sedation Level of Care: Fast Track Phase II Post Sedation Plan On clinical assessment, the patient appears to have tolerated the sedation without complications. Patient is recovering as anticipated. Patient will continue to be monitored by nursing and may be discharged when sedation discharge criteria are met per below protocol. Upon Completions of procedure up to 15 minutes continue every 5 minute vital signs and the P.A.R. score; then discharge to a Phase I or Fast Track to Phase II per the following guidelines: * Discharge Patient to appropriate Phase II area if PAR is 8 or greater or return to pre- procedure baseline. The post - procedure orders will be as directed. * If PAR score is less than 8 or not return to pre-procedure baseline then patient will follow Phase I monitoring till PAR is reached for Phase II. The Phase I may be done in procedure room or may call to secure a Phase I area. * If naloxone or flumazenil are used for reversal, hold in Phase I for continued monitoring from when last reversal dose was given for a minimum of 60 minutes or longer pending the nurse and/or physician discretion of patient condition before discharge to Phase II. Please call the Sedation Physician to re-evaluate and complete post-note for discharge to Phase II area. Do NOT discharge from procedure sedation or Phase 1 until post- sedation evaluation note is complete by procedure /sedation MD Sedation Discharge Instructions to be given to the patient at discharge to home.
--- NOTE | 2019-07-29 14:48 | Cardiac Catheterization ---
[facility] Data: [employer] Resources Hr Generalist Cardiac Status Clinical evaluation leading to the procedure CAD Presenation: Non STEMI Anginal Classification: CCS IV Heart Failure: NYHA Class: CCS IV Cardiogenic Shock within 24 Hours: No Cardiac Arrest within 24 Hours: No Imaging Studies Past 6 Months: Yes Stress Studies Past 6 Months: No Diagnostic Physicians Name: Ivan Padilla MD Status: Elective Closure Device Percutaneous Entry Location: Radial Closure Device: Radial Band Recommendations: Medical Therapy and/or Counseling Intraprocedure Events Significant Disection: No Perforation: No Cardiac Cath Procedure Full Procedure Date July 29, 2019 Pre-Procedure Diagnosis Pre-Procedure Diagnosis: Non STEMI and Cardiomyopathy AUC Score AUC Score: 8 Post-Procedure Diagnosis Post-Procedure Diagnosis: Mild CAD and Elevated Intracardiac Pressures Procedure(s) Performed Procedure(s) Performed: Coronary Angiography, Left Heart Cath, Right Heart Cath and Ultrasound Guided Vascular Access [employer] Painter Ivan Padilla MD [place] Laborer(s) Ryne Estimated Blood Loss Estimated Blood Loss: 10 Medication(s) Medication(s): Fentanyl, Heparin, Lidocaine 1%, Nicardipine, Nitroglycerin and Versed Summary of Findings Indication: NSTEMI, severe LV dysfunction Access: 6 Fr slender right radial artery, 6 Fr slender right antecubital vein under ultrasound guidance Catheters: Casselberry, JR4; Parrott Findings: LM -large caliber, no significant disease LAD -large caliber, 20-30 % proximal to mid disease, distal vessel wraps around apex. Medium caliber first diagonal without significant disease. Small second and third diagonals without disease. Circumflex -medium caliber, luminal irregularities. Large OM1 without significant disease RCA -dominant, large caliber, no significant disease RA 7 RV 42/9 PA 42/17 (29) PAWP 20 LVEDP 21 Left atrium 24 PaSat 66% AoSat 98% on 4 L Eleazar CO/CI 4.65/2 Arterial Closure: TR band Summary: 1. Minimal nonobstructive coronary artery disease -20 to 30% proximal mid LAD disease 2. Elevated left and right-sided filling pressures. 3. Mild pulmonary hypertension (postcapillary) 4. Preserved cardiac output Recommendations: Continue IV diuresis Continue GDMT for nonischemic cardiomyopathy Can discontinue heparin infusion Hemodynamics Rest Ao:: 98/74/84 Final Ao: 100/71/84 LV: 100/24 Recommendations Recommendations: Medical Therapy and/or Counseling Specimens Specimens: None Radiation Exposure (mGy) 998 Contrast (mls) 65 Fluids (cc crystalloids) Fluids (cc crystalloids): 31 Drains Drains: None Anesthesia Moderate Procedural Complication(s) None Disposition PCU I attest to the content of the Intraoperative Record and any orders documented therein. Any exceptions are noted below.
[2019-07-29] MEDS: HEPARIN SODIUM/DEXTROSE 25,000 UNITS/500 ML BAG IV SCH (16:40)
[2019-07-29] MEDS: cefTRIAXone SODIUM 2,000 MG in DEXTROSE 5% 50 ML IV SCH (20:59)
[2019-07-29] MEDS: HEPARIN SOD 5,000 UNIT/0.5 ML VIAL SQ SCH (21:00)
[2019-07-29] MEDS: carvediloL 3.125 MG TAB PO SCH (21:00)
[2019-07-29] MEDS: ACETAMINOPHEN 325 MG TAB PO PRN (23:39)
[2019-07-30 07:18] LABS: Basophils # (auto) 0.02 K/uL (0-0.2); Basophils % (auto) 0.3 %; Eosinophils # (auto) 0.03 K/uL (0-0.5); Eosinophils % (auto) 0.5 %; Hematocrit (blood only) 41.5 % (42-52); Hemoglobin 14.2 g/dL (14.0-18.0); Immature Granulocytes # (auto) 0.01 K/uL (0.00-0.02); Immature Granulocytes % (auto) 0.2 %; Lymphocytes # (auto) 1.86 K/uL (1.2-3.4); Lymphocytes % (auto) 30.9 %; Mean Corpuscular Hemoglobin 33.3 pg (25-34); Mean Corpuscular Hgb Conc 34.2 g/dL (32-36); Mean Corpuscular Volume 97.2 fL (80-100); Mean Platelet Volume 9.6 fL (7.4-10.4); Monocytes # (auto) 0.47 K/uL (0.11-0.59); Monocytes % (auto) 7.8 %; Neutrophils # (auto) 3.62 K/uL (1.4-6.5); Neutrophils % (auto) 60.3 %; Platelet Count 210 K/uL (130-400); RDW Coefficient of Variation 12.9 % (11.5-14.5); RDW Standard Deviation 45.8 fL (36.4-46.3); Red Blood Count 4.27 M/uL (4.7-6.1); White Blood Count 6.01 K/uL (4.8-10.8)
[2019-07-30 07:49] LABS: Albumin Level 2.4 gm/dl (3.4-5.0); BUN Creatinine Ratio 15.6 (10-20); Calcium 8.1 mg/dl (8.5-10.1); Creatinine Clr Calc Pharmacy 96.9 ml/min; Est GFR (African American) 86.1; Est GFR (Non-African American) 74.3; Potassium 3.9 mmol/L (3.5-5.1)
[2019-07-30 07:54] LABS: Albumin Globulin Ratio 0.9 (0.9-2); Bilirubin,Total 0.9 mg/dl (0.2-1); Globulin 2.7 gm/dl (2.5-4.0); Total Protein 5.1 gm/dl (6.4-8.2)
[2019-07-30 08:07] LABS: iSTAT Arterial Blood Gas HCO3 21 meg/L (19-24); iSTAT Arterial Blood Gas pCO2 38 mmHg (35-46); iSTAT Arterial Blood Gas pH 7.35 (7.35-7.45); iSTAT Arterial Blood Gas pO2 106 mmHg (80-95); iSTAT Carbon Dioxide 22 mEq/l (24-31)
[2019-07-30 08:07] LABS: iSTAT Arterial Blood Gas HCO3 21 meg/L (19-24); iSTAT Arterial Blood Gas pCO2 37 mmHg (35-46); iSTAT Arterial Blood Gas pH 7.36 (7.35-7.45); iSTAT Arterial Blood Gas pO2 35 mmHg (80-95); iSTAT Carbon Dioxide 22 mEq/l (24-31)
[2019-07-30] MEDS: FUROSEMIDE 40 MG in SYRINGE 0 ML IV SCH ×2 (08:48→17:23)
[2019-07-30] MEDS: LISINOPRIL 2.5 MG TAB PO SCH (08:49)
[2019-07-30] MEDS: OMEGA-3 (PURIFIED FISH OIL) 1 GM CAP PO SCH ×2 (08:49→20:55)
[2019-07-30] MEDS: LACTOBACILLUS ACIDOPHILUS (FLORANEX) TAB PO SCH ×4 (08:49→20:56)
[2019-07-30] MEDS: POTASSIUM CHLORIDE 20 MEQ TABCR PO SCH (08:50)
[2019-07-30] MEDS: ASPIRIN 81 MG ECTAB PO SCH (08:51)
[2019-07-30] MEDS: HEPARIN SOD 5,000 UNIT/0.5 ML VIAL SQ SCH ×2 (08:51→20:55)
[2019-07-30] MEDS: carvediloL 3.125 MG TAB PO SCH ×2 (08:51→20:54)
[2019-07-30] MEDS: ATORVASTATIN 40 MG TAB PO SCH (08:52)
[2019-07-30 10:05] LABS: Lyme Ab IgG w/WB Rflx Negative (Negative); Lyme Ab IgM w/WB Rflx Negative (Negative)
--- NOTE | 2019-07-30 10:22 | CT Scan Report ---
CT abd pelvis wo con CT DOSE: 928.71 mGycm HISTORY: Lung pain right flank pain TECHNIQUE: Multiaxial CT images of the abdomen and pelvis were performed without contrast. A dose lo wering technique was utilized adhering to the principles of ALARA. COMPARISON STUDY: None. FINDINGS: Diffuse parenchymal infiltrative process right lung base. Small associated right effusion. Scattered parenchymal infiltrative changes left base medially. Trace hepatic as well as perisplenic ascites. Mild gallbladder wall thickening. Kidneys are considered negative for hydronephrosis. Several small scattered reactive mesenteric and/o r retroperitoneal nodes. Nonobstructive bowel pattern. Moderate body wall anasarca. The appendix is normal. Mild pelvic and cul-de-sac ascites. Bladder is midline. IMPRESSION: 1. Diffuse right basilar parenchymal infiltrate associated with a right effusion. 2. Scattered parenchymal infiltrative changes left lung base. 3. Mild body wall anasarca. 4. Mild abdominal and pelvic ascites. 5. Somewhat contracted gallbladder with slightly edematous wall 6. No evidence for hydronephrosis or obstruction of the urinary tract. 7. Nonobstructive bowel pattern with a normal appendix. The above report was generated using voice recognition software. It may contain grammatical, syntax or spelling errors. Electronically signed by: Pedro Jarrett M.D. 07/30/2019 10:21 AM
--- NOTE | 2019-07-30 11:47 | Gastrointestinal Consultation ---
Date of Consultation July 30, 2019 Assessment & Plan (1) CHF (congestive heart failure): 44 year old male presenting with acute heart failure w/ EF 15%, fluid overload, elevated troponin w/ negative cardiac cath who had CTAP for evaluation of right sided pressure showing mild gallbladder wall thickening. He is extremely high risk for elective surgical procedures given his current cardiac status nor do his describe symptoms sound concerning for biliary colic. Appreciate ongoing cardiology consultation and management of heart failure No current GI indication for endoscopy Can trial PPI 20 mg daily LFTs are non elevated Lipase is non elevated Can consider OP general surgery evaluation for gallbladder wall thickening once medically stable Thank you for allowing us to participate in the care of this patient. Please call with any acute changes, questions or concerns. Please see addendum below with additional recommendation from my supervising physician. Present on Admission?: Yes Supervising Physician Co-Signing Physician Notes I have seen and examined the patient with JONATHAN Harvey whose note reflects our findings and plan. History of Present Illness Reason for Consultation: gallbladder wall thickening Requesting Physician: Charly Attending Physician: Carlton Parks MD History of Present Illness 44 year old male without significant past medical history who presents through the ED w/ report of cough/shortness of breath and fluid overload x 4/5 weeks - cardiology following. GI asked to evaluate for abnormal imaging. Pt was seen and evaluated, chart reviewed. Family at bedside. Notes over the past 4/5 weeks he has had a plethora of symptoms including volume overload, abdominal pressure, specifically localized near his right rib cage, SOB and cough. He was initially treated for bronchitis as an OP w/ course of prednisone, z-pack, Flagyl and doxycycline. He noted worsening symptoms which prompted ED evaluation. He suggests constant RUQ and RLQ pressure. Worse with palpation, certain movements. Unchanged with PO or with BM. Moving bowels once daily, semi-formed brown stools. ECHO: EF 15% CTAP: Diffuse right basilar parenchymal infiltrate associated with a right effusion. Scattered parenchymal infiltrative changes left lung base Mild body wall anasarca. Mild abdominal and pelvic ascites. Somewhat contracted gallbladder with slightly edematous wall No evidence for hydronephrosis or obstruction of the urinary tract. Nonobstructive bowel pattern with a normal appendix. Allergies Allergy/AdvReac Type Severity Reaction Status Date / Time No Known Allergies Allergy Unverified 07/28/19 14:21 Home Medications Home Medications Medication Instructions Recorded Confirmed Type No Known Home Medications 07/28/19 07/28/19 History Patient History Medical History Bronchitis Social History Preferred Language: Nigerian Beliefs That Will Affect Care: None Current Living Situation: Alone Feels Safe at Home: Yes Safety Concerns: Feels Safe At This Time Smoking Status: Former smoker Hx Alcohol Use: Yes Alcohol type: beer Hx Substance Use: No Review of Systems Constitutional: no fever, no chills and no fatigue Respiratory: + cough; no dyspnea and no pain with cough Cardiovascular: + dyspnea; no chest pain and no chest pain at rest Gastrointestinal: no abdominal pain, no bloating, no nausea, no coffee ground emesis, no hematemesis, no pain with swallowing, no dysphagia, no excessive flatulence, no change in bowel habits, no diarrhea/loose stools, no blood in stools and no melena Physical Exam Constitutional: no acute distress Neck: trachea midline Respiratory: normal respiratory effort Auscultation: + crackles decreased breath sounds at bilateral bases Cardiovascular: Rate/Rhythm: regular rate and regular rhythm Extremities: + edema Gastrointestinal (Abdomen): normal bowel sounds, soft, nontender, no hepatosplenomegaly Results & Data Vital Signs (Past 12 Hours) Vital Signs Temp Pulse Pulse Resp BP Pulse Ox 07/30/19 09:10 94 H 07/30/19 07:27 36.8 C 95 H 18 107/75 95 07/30/19 03:47 35.6 C L 90 18 95/63 L 96 (1) CHF (congestive heart failure) Heart failure chronicity: unspecified Heart failure type: unspecified Qualified Code(s): I50.9 - Heart failure, unspecified
--- NOTE | 2019-07-30 13:29 | Cardiology Progress Note ---
Date of Service July 30, 2019 Assessment & Plan (1) CHF (congestive heart failure): He presents in congestive heart failure with symptomatically started perhaps 5 weeks ago, that was treated as a bronchitis or pulmonary condition. He did not have edema then so I cannot tell if that was correct and he has subsequently developed congestive heart failure although it is possible that this was congestive heart failure all along. He needs to be treated with diuresis as well as fluid and salt restriction and we need to try to find a cause of his heart failure. So far as studies have been negative with his protein electrophoresis and GIOVANY pending. He has not lost a lot of fluid over t he last 24 hours but his creatinine has improved. I would continue diuresis. (2) Cardiomyopathy: He has global hypokinesis of a severe extent, his left ventricular ejection fraction is 15 to 20% and he has right ventricular involvement as well which could be secondary to his left ventricular dysfunction. The cause is not clear but it was worrisome that his troponin was rising. Catheterization did not show significant disease although he did have some. (3) Elevated troponin: His troponin had increased significantly since arrival (It was only 0.276 on arrival, that evening it was 9.5 to and early the next morning 12.1). This is really not in keeping with his symptoms which suggest a much longer time cou rse, however his coronary anatomy does not support ischemia. (4) NSVT (nonsustained ventricular tachycardia): He has had several episodes of nonsustained ventricular tachycardia since arrival. There are 2 episodes which are both monomorphic, one 9 beats and one 10 beats in duration. The heart rate ranges from 150 to 170 bpm. This is worrisome with his cardiomyopathy. He will certainly need beta-blockade as soon as we are able to, we need to consider a LifeVest upon discharge. (5) CAD (coronary artery disease): He does have coronary artery disease however it is minor. He has risk factors (including family history) and given his age I would treat him with risk factor modification and I would probably continue a statin given his known disease. Aspirin may be reasonable although I believe debatable. Certainly his coronary disease does not have anything to do with his cardiomyopathy. Subjective He is feeling better now, he slept better last night and has minimal shortness of breath. He still has edema. Physical Exam Physical Exam: Constitutional: Alert, cooperative and in no distress. Pulmonary: Clear to auscultation bilaterally. Cardiac: Regular rhythm with no murmur, gallop or rub. Abdomen: Soft, nontender with normal bowel sounds. Extremities: +2 bilateral pretibial edema. Skin: No rash, ecchymoses or petechiae. Results & Data Vital Signs (Past 12 Hours) Vital Signs Temp Pulse Pulse Resp BP Pulse Ox 07/30/19 12:10 36.4 C L 83 18 125/90 99 07/30/19 09:10 94 H 07/30/19 07:27 36.8 C 95 H 18 107/75 95 07/30/19 03:47 35.6 C L 90 18 95/63 L 96 PG Care Time/CCT Total # of Minutes Spent Total Time Spent with Patient: Total time spent is greater than 50% in coordination of care (as documented) at patient's floor/unit and/or counseling patient: (1) CHF (congestive heart failure) Heart failure chronicity: unspecified Heart failure type: unspecified Qualified Code(s): I50.9 - Heart failure, unspecified
--- NOTE | 2019-07-30 17:05 | Hospitalist Progress Note ---
Date of Service July 30, 2019 Assessment & Plan (1) CHF (congestive heart failure): Continue admit patient to PCU on telemetry for acute onset of congestive heart failure. Appreciate cardiology recommendations: Patient accepted to undergo cardiac catheterization for elevated troponin, and global hypokinesis with ejection fraction of 15 to 20% involving his right ventricle seen at the TTE. Patient will need a LifeVest upon discharge and beta-jayden as soon as out of very acute phase. Waiting for further cardiology recommendations. Lipid panel-triglycerides 50 normal cholesterol 81 normal LDL 40 normal VLDL 10 normal HDL 31. Patient was started on atorvastatin 40 mg every afternoon even though his lipid panel profile is favorable. Cont Cervedilol 3.125 mg BID and Lisinopril 2.5 mg QD. ASA 81 mg PO daily. Continue to follow BMP Replenish electrolytes as needed Check CBC and CMP daily Free water restriction to 1200 mils p.o. daily. Low-sodium diet Furosemide drip started instead of 40 BID , with expectant loss of 1.5 L/day, since output was not adequate. Keep potassium above 4 and magnesium above 2. Consult cardiology Consults CHF clinic for follow-up. DVT prophylaxis; patient is on heparin drip for elevated troponin. Full code (2) Acute kidney injury: Avoid nephrotoxic agents. Improving. Pt now on Furosemide drip. Monitor closely. Decrease the dose if this is severely affecting patient's kidneys. (3) Urinary tract infection: Patient urine is not a clean-catch but it is difficult at this point to rule out urinary tract infection.Continue ceftriaxone that was already started in the emergency room. (4) Elevated troponin: Troponin is trending up 0.276-->9.520-->12.100 (5) Pneumonia: Procalcitonin is negative 0.1. Patient less likely has pneumonia, and infiltrate seen on the CT scan could be result of congestive heart failure rather than pneumonia. He was treated for 5 weeks with Z-Xavi and doxycycline. Patient is now on ceftriaxone for urinary tract infection. (6) Discharge planning issues: Expectant stayed more than 2 nights. Discharge home when clinically improved. Subjective Patient seen and examined at the bedside. Patient is slowly improving but complains of right upper quadrant pain which is more like a pressure and it has been ongoing even before this admission. Patient did not lose much fluids overall yesterday. He still has edema. Patient denies fever, chills, chest pain, shortness of breath, abdominal pain, frequency, urgency. Review of Systems Review of Systems: All systems reviewed & are unremarkable except as noted in HPI & below Physical Exam Constitutional: WD/WN, vitals as above well developed, + ill appearing and average body habitus Eyes: PERRL, conjunctivae normal, anicteric sclerae ENMT: external ear and nose normal, oropharynx normal Neck: trachea midline, no thyromegaly Respiratory: Auscultation: + crackles and + wheezes Cardiovascular: Heart Sounds: normal S1 and normal S2 Palpation: + palpable S3 Vessels: + JVD and dorsalis pedis pulses present Extremities: + pedal edema and + edema (Patient body appears to be a dermatosis or up until the umbilicus. Pitting edema of lower extremity 2+.) Gastrointestinal (Abdomen): normal bowel sounds, soft, nontender, no hepatosplenomegaly Musculoskeletal: no cyanosis or clubbing, extremities motor strength 5/5 Skin: no rashes, warm and dry Neurologic: patellar DTR's 2+ bilat, sensation intact Genitourinary: no testicular masses, no penis abnormality Lymphatic: no cervical or axillary lymphadenopathy Results & Data Vital Signs (Past 12 Hours) Vital Signs Temp Pulse Pulse Resp BP Pulse Ox 07/30/19 15:52 104 H 07/30/19 15:31 36.5 C 99 H 18 93/63 L 99 07/30/19 12:10 36.4 C L 83 18 125/90 99 07/30/19 09:10 94 H 07/30/19 07:27 36.8 C 95 H 18 107/75 95 PG Care Time/CCT Total # of Minutes Spent Total Time Spent with Patient: Total time spent is greater than 50% in coordination of care (as documented) at patient's floor/unit and/or counseling patient: (1) CHF (congestive heart failure) Heart failure chronicity: unspecified Heart failure type: unspecified Qualified Code(s): I50.9 - Heart failure, unspecified (2) Pneumonia Laterality: right Lung location: lower lobe of lung Pneumonia type: due to unspecified organism Qualified Code(s): J18.1 - Lobar pneumonia, unspecified organism
[2019-07-30] MEDS: FUROSEMIDE 100 MG in DEXTROSE 5% 90 ML IV SCH (17:59)
[2019-07-30 18:04] LABS: BUN Creatinine Ratio 15.4 (10-20); Calcium 8.4 mg/dl (8.5-10.1); Creatinine Clr Calc Pharmacy 86.5 ml/min; Est GFR (African American) 75.1; Est GFR (Non-African American) 64.8; Potassium 3.9 mmol/L (3.5-5.1)
[2019-07-30] MEDS: cefTRIAXone SODIUM 2,000 MG in DEXTROSE 5% 50 ML IV SCH (20:53)
[2019-07-31 06:50] LABS: Basophils # (auto) 0.01 K/uL (0-0.2); Basophils % (auto) 0.2 %; Eosinophils # (auto) 0.03 K/uL (0-0.5); Eosinophils % (auto) 0.5 %; Hemoglobin 13.7 g/dL (14.0-18.0); Immature Granulocytes # (auto) 0.01 K/uL (0.00-0.02); Immature Granulocytes % (auto) 0.2 %; Lymphocytes # (auto) 1.88 K/uL (1.2-3.4); Lymphocytes % (auto) 30.9 %; Mean Corpuscular Hemoglobin 33.1 pg (25-34); Mean Corpuscular Hgb Conc 34.3 g/dL (32-36); Mean Corpuscular Volume 96.6 fL (80-100); Mean Platelet Volume 9.4 fL (7.4-10.4); Monocytes # (auto) 0.42 K/uL (0.11-0.59); Monocytes % (auto) 6.9 %; Neutrophils # (auto) 3.74 K/uL (1.4-6.5); Neutrophils % (auto) 61.3 %; Platelet Count 226 K/uL (130-400); RDW Coefficient of Variation 12.9 % (11.5-14.5); RDW Standard Deviation 45.1 fL (36.4-46.3); Red Blood Count 4.14 M/uL (4.7-6.1); White Blood Count 6.09 K/uL (4.8-10.8)
[2019-07-31 07:21] LABS: Albumin Level 2.4 gm/dl (3.4-5.0); BUN Creatinine Ratio 13.8 (10-20); Calcium 8.3 mg/dl (8.5-10.1); Creatinine Clr Calc Pharmacy 97.7 ml/min; Est GFR (Non-African American) 75.1; Potassium 3.6 mmol/L (3.5-5.1)
[2019-07-31 07:25] LABS: Albumin Globulin Ratio 0.8 (0.9-2); Bilirubin,Total 0.7 mg/dl (0.2-1); Globulin 2.9 gm/dl (2.5-4.0); Total Protein 5.3 gm/dl (6.4-8.2)
[2019-07-31] MEDS: carvediloL 3.125 MG TAB PO SCH ×2 (08:19→19:55)
[2019-07-31] MEDS: POTASSIUM CHLORIDE 20 MEQ TABCR PO SCH (08:19)
[2019-07-31] MEDS: ATORVASTATIN 40 MG TAB PO SCH (08:20)
[2019-07-31] MEDS: OMEGA-3 (PURIFIED FISH OIL) 1 GM CAP PO SCH ×2 (08:20→20:16)
[2019-07-31] MEDS: LACTOBACILLUS ACIDOPHILUS (FLORANEX) TAB PO SCH ×4 (08:20→20:10)
[2019-07-31] MEDS: LISINOPRIL 2.5 MG TAB PO SCH (08:21)
[2019-07-31] MEDS: ASPIRIN 81 MG ECTAB PO SCH (08:21)
[2019-07-31] MEDS: HEPARIN SOD 5,000 UNIT/0.5 ML VIAL SQ SCH ×2 (08:21→20:16)
--- NOTE | 2019-07-31 09:55 | Hospitalist Progress Note ---
Date of Service July 31, 2019 Assessment & Plan (1) CHF (congestive heart failure): Continue admit patient to PCU on telemetry for acute onset of congestive heart failure. Appreciate cardiology recommendations: Patient accepted to undergo cardiac catheterization for elevated troponin, and global hypokinesis with ejection fraction of 15 to 20% involving his right ventricle seen at the TTE. Patient will need a LifeVest upon discharge and beta-jayden as soon as out of very acute phase. Waiting for further cardiology recommendations. Lipid panel-triglycerides 50 normal cholesterol 81 normal LDL 40 normal VLDL 10 normal HDL 31. Patient was started on atorvastatin 40 mg every afternoon even though his lipid panel profile is favorable. Cont Cervedilol 3.125 mg BID and Lisinopril 2.5 mg QD. ASA 81 mg PO daily. TTE in AM Continue to follow BMP Replenish electrolytes as needed Check CBC and CMP daily Free water restriction to 1200 mils p.o. daily. Low-sodium diet Furosemide drip with expectant loss of 1.5 L/day, since output was not adequate. Keep potassium above 4 and magnesium above 2. Consult cardiology Consults CHF clinic for follow-up. DVT prophylaxis; patient is on heparin drip for elevated troponin. Full code (2) Acute kidney injury: Avoid nephrotoxic agents. Improving. Pt now on Furosemide drip. Monitor closely. Decrease the dose if this is severely affecting patient's kidneys. (3) Urinary tract infection: Patient urine is not a clean-catch but it is difficult at this point to rule out urinary tract infection.Continue ceftriaxone that was already started in the emergency room. (4) Elevated troponin: Troponin is trending up 0.276-->9.520-->12.100 (5) Pneumonia: Procalcitonin is negative 0.1. Patient less likely has pneumonia, and infiltrate seen on the CT scan could be result of congestive heart failure rather than pneumonia. He was treated for 5 weeks with Z-Xavi and doxycycline. Patient is now on ceftriaxone for urinary tract infection. (6) Discharge planning issues: Expectant stayed more than 2 nights. Discharge home when clinically improved. Subjective Patient seen and examined at the bedside. Patient is slowly improving , pt has net loss 1500 ml in 24 hr, complains of indigestion and burping. Patient was recommended to eat small meals do decreased indigestion. Bowel absorption is still poor due to the edema.. He still has edema. Patient denies fever, chills, chest pain, shortness of breath, abdominal pain, frequency, urgency. Review of Systems Review of Systems: All systems reviewed & are unremarkable except as noted in HPI & below Physical Exam Constitutional: WD/WN, vitals as above well developed, + ill appearing and average body habitus Eyes: PERRL, conjunctivae normal, anicteric sclerae ENMT: external ear and nose normal, oropharynx normal Neck: trachea midline, no thyromegaly Respiratory: Auscultation: + crackles and + wheezes Cardiovascular: Heart Sounds: normal S1 and normal S2 Palpation: + palpable S3 Vessels: + JVD and dorsalis pedis pulses present Extremities: + pedal edema and + edema (Patient body appears to be a dermatosis or up until the umbilicus. Pitting edema of lower extremity 2+.) Gastrointestinal (Abdomen): normal bowel sounds, soft, nontender, no hepatosplenomegaly Musculoskeletal: no cyanosis or clubbing, extremities motor strength 5/5 Skin: no rashes, warm and dry Neurologic: patellar DTR's 2+ bilat, sensation intact Genitourinary: no testicular masses, no penis abnormality Lymphatic: no cervical or axillary lymphadenopathy Results & Data Vital Signs (Past 12 Hours) Vital Signs Temp Pulse Pulse Resp BP Pulse Ox 07/31/19 08:41 94 H 07/31/19 07:22 36.6 C 98 H 16 103/68 96 07/31/19 04:30 36.7 C 94 H 16 93/62 L 94 07/30/19 23:33 36.4 C L 93 H 18 93/62 L 95 PG Care Time/CCT Total # of Minutes Spent Total Time Spent with Patient: Total time spent is greater than 50% in coordination of care (as documented) at patient's floor/unit and/or counseling patient: (1) CHF (congestive heart failure) Heart failure chronicity: unspecified Heart failure type: unspecified Qualified Code(s): I50.9 - Heart failure, unspecified (2) Pneumonia Laterality: right Lung location: lower lobe of lung Pneumonia type: due to unspecified organism Qualified Code(s): J18.1 - Lobar pneumonia, unspecified organism
--- NOTE | 2019-07-31 11:01 | Cardiology Progress Note ---
Date of Service July 31, 2019 Assessment & Plan (1) CHF (congestive heart failure): He presents in congestive heart failure with compatible symptoms starting perhaps 5 weeks ago, that was treated as a bronchitis or pulmonary condition. He did not have edema then so I cannot tell if that was correct and he has subsequently developed congestive heart failure although it is possible that this was congestive heart failure from the beginning. He needs to be treated with diuresis as well as fluid and salt restriction and we have been trying although so far it appears to be idiopathic to find a cause of his heart failure. So far as studies have been negative with his protein electrophoresis and GIOVANY pending. I would continue diuresis. (2) Cardiomyopathy: He has global hypokinesis of a severe extent, his left ventricular ejection fraction is was 15 to 20% and he had right ventricular involvement as well which could be secondary to his left ventricular dysfunction. The cause was not clear but it was worrisome that his troponin was rising. Catheterization did not show significant disease although he did have been minor coronary disease not related to his cardiomyopathy. I would like to repeat his echo to look at his left ventricular and right ventricular function, especially in light of his rising troponin after admission. Over the long run we need to try to titrate his beta-jayden and GIOVANY inhibitor however his blood pressure is borderline so would not increase them as yet. (3) Elevated troponin: His troponin had increased significantly since arrival (It was only 0.276 on arrival, that evening it was 9.5 to and early the next morning 12.1). This is really not in keeping with his symptoms which suggest a much longer time course, however his coronary anatomy does not support ischemia. If his echo ejection fraction looks worse I would like to repeat the troponin measurement to look for ongoing injury, otherwise I probably would not. (4) NSVT (nonsustained ventricular tachycardia): He has had several episodes of nonsustained ventricular tachycardia since arrival. There were 2 episodes which are both monomorphic, one 9 beats and one 10 beats in duration. Since yesterday he had another 4 beat run. The heart rate ranges from 150 to 170 bpm. This is worrisome with his cardiomyopathy. He will certainly need beta-blockade long-term which we can gradually titrate, currently his blood pressure is low so I am not done that, we need to consider a LifeVest upon discharge. (5) CAD (coronary artery disease): He does have coronary artery disease however it is minor. He has risk factors (including family history) and given his age I would treat him with risk factor modification and I would probably continue a statin given his known disease. Aspirin may be reasonable although I believe debatable. Certainly his coronary disease does not have anything to do with his cardiomyopathy. Subjective He continues to feel relatively well, he does not feel that his eating is back to normal and he still has some edema. He is sleeping better and does not have orthopnea. Physical Exam Physical Exam: Constitutional: Alert, cooperative and in no distress. Pulmonary: Clear to auscultation bilaterally. Cardiac: Regular rhythm with no murmur, gallop or rub. Abdomen: Soft, nontender with normal bowel sounds. Extremities: +2 bilateral pedal and pretibial edema. Skin: No rash, ecchymoses or petechiae. Results & Data Vital Signs (Past 12 Hours) Vital Signs Temp Pulse Pulse Resp BP Pulse Ox 07/31/19 08:41 94 H 07/31/19 07:22 36.6 C 98 H 16 103/68 96 07/31/19 04:30 36.7 C 94 H 16 93/62 L 94 07/30/19 23:33 36.4 C L 93 H 18 93/62 L 95 Laboratory Results Abnormal lab results 07/30/19 07/31/19 07/31/19 Range/Units 17:21 06:36 06:36 RBC 4.14 L (4.7-6.1) M/uL Hgb 13.7 L (14.0-18.0) g/dL Hct 40.0 L (42-52) % Sodium 134 L (136-145) mmol/L BUN 20 H (7-18) mg/dl Glucose 113 H (70-99) mg/dl Calcium 8.4 L 8.3 L (8.5-10.1) mg/dl NT-Pro-B Natriuret Pep 3265 H (0-450) pg/ml Total Protein 5.3 L (6.4-8.2) gm/dl Albumin 2.4 L (3.4-5.0) gm/dl Albumin/Globulin Ratio 0.8 L (0.9-2) Diagnostic Findings Telemetry: Sinus rhythm with 1 3 beat run of nonsustained ventricular tachycardia PG Care Time/CCT Total # of Minutes Spent Total Time Spent with Patient: Total time spent is greater than 50% in coordination of care (as documented) at patient's floor/unit and/or counseling patient: (1) CHF (congestive heart failure) Heart failure chronicity: unspecified Heart failure type: unspecified Qualified Code(s): I50.9 - Heart failure, unspecified
[2019-07-31] MEDS: FUROSEMIDE 100 MG in DEXTROSE 5% 90 ML IV SCH (16:28)
[2019-07-31 17:33] LABS: BUN Creatinine Ratio 13.6 (10-20); Calcium 8.5 mg/dl (8.5-10.1); Creatinine Clr Calc Pharmacy 89.9 ml/min; Est GFR (African American) 78.8; Potassium 3.8 mmol/L (3.5-5.1)
[2019-07-31] MEDS: cefTRIAXone SODIUM 2,000 MG in DEXTROSE 5% 50 ML IV SCH (20:16)
[2019-08-01 07:16] LABS: Basophils # (auto) 0.02 K/uL (0-0.2); Basophils % (auto) 0.3 %; Eosinophils # (auto) 0.02 K/uL (0-0.5); Eosinophils % (auto) 0.3 %; Hematocrit (blood only) 42.2 % (42-52); Hemoglobin 14.5 g/dL (14.0-18.0); Immature Granulocytes # (auto) 0.01 K/uL (0.00-0.02); Immature Granulocytes % (auto) 0.1 %; Lymphocytes # (auto) 2.44 K/uL (1.2-3.4); Lymphocytes % (auto) 32.7 %; Mean Corpuscular Hemoglobin 33.4 pg (25-34); Mean Corpuscular Hgb Conc 34.4 g/dL (32-36); Mean Corpuscular Volume 97.2 fL (80-100); Mean Platelet Volume 9.6 fL (7.4-10.4); Monocytes # (auto) 0.62 K/uL (0.11-0.59); Monocytes % (auto) 8.3 %; Neutrophils # (auto) 4.35 K/uL (1.4-6.5); Neutrophils % (auto) 58.3 %; Platelet Count 228 K/uL (130-400); RDW Coefficient of Variation 12.9 % (11.5-14.5); RDW Standard Deviation 45.9 fL (36.4-46.3); Red Blood Count 4.34 M/uL (4.7-6.1); White Blood Count 7.46 K/uL (4.8-10.8)
[2019-08-01 07:54] LABS: Albumin Level 2.5 gm/dl (3.4-5.0); Calcium 8.7 mg/dl (8.5-10.1); Creatinine Clr Calc Pharmacy 96.9 ml/min; Est GFR (African American) 86.1; Est GFR (Non-African American) 74.3; Potassium 3.6 mmol/L (3.5-5.1)
[2019-08-01 07:57] LABS: Albumin Globulin Ratio 0.8 (0.9-2); Bilirubin,Total 0.7 mg/dl (0.2-1); Globulin 3.2 gm/dl (2.5-4.0); Total Protein 5.7 gm/dl (6.4-8.2)
[2019-08-01] MEDS: OMEGA-3 (PURIFIED FISH OIL) 1 GM CAP PO SCH ×2 (08:32→21:18)
[2019-08-01] MEDS: carvediloL 3.125 MG TAB PO SCH (08:32)
[2019-08-01] MEDS: HEPARIN SOD 5,000 UNIT/0.5 ML VIAL SQ SCH ×2 (08:33→21:23)
[2019-08-01] MEDS: POTASSIUM CHLORIDE 20 MEQ TABCR PO SCH (08:33)
[2019-08-01] MEDS: LISINOPRIL 2.5 MG TAB PO SCH (08:33)
[2019-08-01] MEDS: ASPIRIN 81 MG ECTAB PO SCH (08:33)
[2019-08-01] MEDS: LACTOBACILLUS ACIDOPHILUS (FLORANEX) TAB PO SCH ×4 (08:34→21:16)
[2019-08-01] MEDS: ATORVASTATIN 40 MG TAB PO SCH (08:34)
[2019-08-01] MEDS ORDERED: POTASSIUM CHLORIDE 20 MEQ TABCR PO STA (10:01)
--- NOTE | 2019-08-01 11:12 | Hospitalist Progress Note ---
Date of Service August 01, 2019 Assessment & Plan (1) CHF (congestive heart failure): Continue admit patient to PCU on telemetry for acute onset of congestive heart failure. Appreciate cardiology recommendations: Patient accepted to undergo cardiac catheterization for elevated troponin, and global hypokinesis with ejection fraction of 15 to 20% involving his right ventricle seen at the TTE. Patient will need a LifeVest upon discharge and beta-jayden as soon as out of very acute phase. Waiting for further cardiology recommendations. Lipid panel-triglycerides 50 normal cholesterol 81 normal LDL 40 normal VLDL 10 normal HDL 31. Patient was started on atorvastatin 40 mg every afternoon even though his lipid panel profile is favorable. Carvedilol increased to 6.25 mg BID and Lisinopril 2.5 mg QD. ASA 81 mg PO daily. TTE repeated same and shows the left ventricle is moderately dilated. Left ventricular systolic function is severely reduced. The right ventricle is mild to moderately dilated. The right atrium is moderately dilated. There is a moderate to severe mitral regurgitation the inferior vena cava is moderately dilated.essentially unchanged echocardiogram from 07/29/2019 . Continue to follow BNP Replenish electrolytes as needed Check CBC and CMP daily Free water restriction to 1200 mils p.o. daily. Low-sodium diet Furosemide drip trended up to 3.5 milligrams per hour with expectant loss of 1.5 L/day, since output was not adequate. Keep potassium above 4 and magnesium above 2. Consult cardiology Follow-up CHF clinic Cardiac rehabilitation Repeat troponin in a.m. DVT prophylaxis; Heparin 5000 twice daily Full code (2) Acute kidney injury: Resolved. Creatinine is now 1.17 and GFR of 74.3. Continue avoiding nephrotoxic agents. Monitor closely creatinine and GFR since patient is on furosemide drip. (3) Urinary tract infection: Discontinued ceftriaxone since patient already have over 72 hours of therapy and does not appear to have any more urinary tract infection. (4) Elevated troponin: Will repeat troponin in a.m. (5) Pneumonia: Procalcitonin is negative 0.1. Patient less likely has pneumonia, and infiltrate seen on the CT scan could be result of congestive heart failure rather than pneumonia. He was treated for 5 weeks with Z-Xavi and doxycycline. (6) Discharge planning issues: Expectant stayed more than 2 nights. Discharge home when clinically improved. Subjective Patient seen and examined at the bedside. Patient is slowly improving, patient did not lose much fluid in the past 24 hours altogether 150 mils. Patient was recommended to eat small meals do decreased indigestion. Bowel absorption is still poor due to the edema.Patient continues to be volume overloaded especially his lower extremities. Patient denies fever, chills, chest pain, shortness of breath, abdominal pain, frequency, urgency. Review of Systems Review of Systems: All systems reviewed & are unremarkable except as noted in HPI & below Physical Exam Constitutional: WD/WN, vitals as above well developed, + ill appearing and average body habitus Eyes: PERRL, conjunctivae normal, anicteric sclerae ENMT: external ear and nose normal, oropharynx normal Neck: trachea midline, no thyromegaly Respiratory: Auscultation: + crackles and + wheezes Cardiovascular: Heart Sounds: normal S1 and normal S2 Palpation: + palpable S3 Vessels: + JVD and dorsalis pedis pulses present Extremities: + pedal edema and + edema (Patient body appears to be a dermatosis or up until the umbilicus. Pitting edema of lower extremity 2+.) Gastrointestinal (Abdomen): normal bowel sounds, soft, nontender, no hepatosplenomegaly Musculoskeletal: no cyanosis or clubbing, extremities motor strength 5/5 Skin: no rashes, warm and dry Neurologic: patellar DTR's 2+ bilat, sensation intact Genitourinary: no testicular masses, no penis abnormality Lymphatic: no cervical or axillary lymphadenopathy Results & Data Vital Signs (Past 12 Hours) Vital Signs Temp Pulse Pulse Resp BP Pulse Ox 08/01/19 10:56 36.2 C L 89 18 98/72 L 97 08/01/19 08:00 105 H 08/01/19 07:37 36.5 C 107 H 19 101/70 97 08/01/19 04:00 36.8 C 91 H 18 103/71 93 07/31/19 23:47 36.3 C L 111 H 16 96/69 L 97 PG Care Time/CCT Total # of Minutes Spent Total Time Spent with Patient: Total time spent is greater than 50% in coordination of care (as documented) at patient's floor/unit and/or counseling patient: (1) CHF (congestive heart failure) Heart failure chronicity: unspecified Heart failure type: unspecified Qualified Code(s): I50.9 - Heart failure, unspecified (2) Pneumonia Laterality: right Lung location: lower lobe of lung Pneumonia type: due to unspecified organism Qualified Code(s): J18.1 - Lobar pneumonia, unspecified organism
--- NOTE | 2019-08-01 15:13 | Cardiology Progress Note ---
Date of Service August 01, 2019 Assessment & Plan (1) CHF (congestive heart failure): He presents in congestive heart failure with compatible symptoms starting perhaps 5 weeks ago, that was treated as a bronchitis or pulmonary condition. He did not have edema then so I cannot tell if that was correct and he has subsequently developed congestive heart failure although it is possible that this was congestive heart failure from the beginning. He needs to be treated with diuresis as well as fluid and salt restriction and we have been evaluating him for a cause although so far it appears to be idiopathic to find a cause of his heart failure. So far as studies have been negative with his protein electrophoresis and GIOVANY pending. I would continue diuresis. (2) Cardiomyopathy: He has global hypokinesis of a severe extent, his left ventricular ejection fraction on admission was 15 to 20% and he had right ventricular involvement as well which could be secondary to his left ventricular dysfunction. The cause was not clear but it was worrisome that his troponin was rising. Catheterization did not show significant disease although he did have been minor coronary disease not related to his cardiomyopathy. I did repeat his echo to look at his left ventricular and right ventricular function, especially in light of his rising troponin after admission, and his left ventricular function appears to be about the same (markedly reduced), his right-sided pressures appear to be a little bit better as assessed by inferior vena cava collapse. Over the long run we need to try to titrate his beta-jayden and GIOVANY inhibitor however his blood pressure is borderline. He does not have symptoms of hypertension and I am therefore going to increase his carvedilol to 6.25 mg twice a day. He knows he may have lightheadedness with it. (3) Elevated troponin: His troponin had increased significantly since arrival (It was only 0.276 on arrival, that evening it was 9.5 to and early the next morning 12.1). This is really not in keeping with his symptoms which suggest a much longer time course, however his coronary anatomy does not support ischemia. I am going to repeat his troponin tomorrow to see if it remains elevated. (4) NSVT (nonsustained ventricular tachycardia): He has had several episodes of nonsustained ventricular tachycardia since arrival. There were 2 episodes which are both monomorphic, one 9 beats and one 10 beats in duration. Subsequently he had another 4 beat run. The heart rate ranges from 150 to 170 bpm. This is worrisome with his cardiomyopathy. He will certainly need beta-blockade long-term which we can gradually titrate which may help however we need to consider a LifeVest upon discharge. (5) CAD (coronary artery disease): He does have coronary artery disease however it is minor. He has risk factors (including family history) and given his age I would treat him with risk factor modification and I would continue a statin given his known disease. Aspirin may be reasonable although I believe debatable. Certainly his coronary disease does not have anything to do with his cardiomyopathy. Subjective He is feeling better today however he notes that he is still having difficulty with edema but feels it is improved. He does not have difficulty with shortness of breath and he has not had palpitations. Physical Exam Physical Exam: Constitutional: Alert, cooperative and in no distress. Pulmonary: Clear to auscultation bilaterally. Cardiac: Regular rhythm with no murmur, gallop or rub. Abdomen: Soft, nontender with normal bowel sounds. Extremities: +2 bilateral pedal and pretibial edema. Skin: No rash, ecchymoses or petechiae. Results & Data Vital Signs (Past 12 Hours) Vital Signs Temp Pulse Pulse Resp BP Pulse Ox 08/01/19 10:56 36.2 C L 89 18 98/72 L 97 08/01/19 08:00 105 H 08/01/19 07:37 36.5 C 107 H 19 101/70 97 08/01/19 04:00 36.8 C 91 H 18 103/71 93 PG Care Time/CCT Total # of Minutes Spent Total Time Spent with Patient: Total time spent is greater than 50% in coordination of care (as documented) at patient's floor/unit and/or counseling patient: (1) CHF (congestive heart failure) Heart failure chronicity: unspecified Heart failure type: unspecified Qualified Code(s): I50.9 - Heart failure, unspecified
[2019-08-01] MEDS: FUROSEMIDE 100 MG in DEXTROSE 5% 90 ML IV SCH (17:13)
[2019-08-01 19:12] LABS: Albumin 2.5 G/DL (3.8-4.8); Alpha 1 Globulin 0.3 G/DL (0.2-0.3); Alpha 2 Globulin 0.7 G/DL (0.5-0.9); Angiotensin Converting Enzyme 25 U/L (9-67); Beta-1-Globulin 0.3 G/DL (0.4-0.6); Beta-2-Globulin 0.3 G/DL (0.2-0.5); Gamma Globulin 0.6 G/DL (0.8-1.7); Monoclonal Protein Band 1 DNR G/DL (NOT DETECTED); Monoclonal Protein Band 2 DNR G/DL (NOT DETECTED); Monoclonal Protein Band 3 DNR G/DL (NOT DETECTED); Total Protein 4.7 G/DL (6.2-8.3)
[2019-08-01] MEDS ORDERED: carvediloL 3.125 MG TAB PO ONE (21:31)
[2019-08-01] MEDS: carvediloL 6.25 MG TAB PO SCH (21:32)
[2019-08-02 06:40] LABS: Basophils # (auto) 0.01 K/uL (0-0.2); Basophils % (auto) 0.2 %; Eosinophils # (auto) 0.03 K/uL (0-0.5); Eosinophils % (auto) 0.6 %; Hematocrit (blood only) 42.7 % (42-52); Hemoglobin 14.3 g/dL (14.0-18.0); Immature Granulocytes # (auto) 0.01 K/uL (0.00-0.02); Immature Granulocytes % (auto) 0.2 %; Lymphocytes # (auto) 1.59 K/uL (1.2-3.4); Lymphocytes % (auto) 30.2 %; Mean Corpuscular Hemoglobin 32.8 pg (25-34); Mean Corpuscular Hgb Conc 33.5 g/dL (32-36); Mean Corpuscular Volume 97.9 fL (80-100); Mean Platelet Volume 9.9 fL (7.4-10.4); Monocytes # (auto) 0.43 K/uL (0.11-0.59); Monocytes % (auto) 8.2 %; Neutrophils # (auto) 3.19 K/uL (1.4-6.5); Neutrophils % (auto) 60.6 %; Platelet Count 200 K/uL (130-400); RDW Coefficient of Variation 12.9 % (11.5-14.5); RDW Standard Deviation 46.3 fL (36.4-46.3); Red Blood Count 4.36 M/uL (4.7-6.1); White Blood Count 5.26 K/uL (4.8-10.8)
[2019-08-02 07:12] LABS: Albumin Level 2.4 gm/dl (3.4-5.0); BUN Creatinine Ratio 15.5 (10-20); Calcium 8.2 mg/dl (8.5-10.1); Creatinine Clr Calc Pharmacy 104.9 ml/min; Est GFR (African American) 94.9; Est GFR (Non-African American) 81.9; Potassium 3.6 mmol/L (3.5-5.1)
[2019-08-02 07:17] LABS: Albumin Globulin Ratio 0.8 (0.9-2); Bilirubin,Total 0.7 mg/dl (0.2-1); Total Protein 5.4 gm/dl (6.4-8.2)
[2019-08-02] MEDS ORDERED: POTASSIUM CHLORIDE 20 MEQ TABCR PO SCH (09:00)
[2019-08-02] MEDS: LACTOBACILLUS ACIDOPHILUS (FLORANEX) TAB PO SCH ×4 (09:36→20:11)
[2019-08-02] MEDS: ATORVASTATIN 40 MG TAB PO SCH (09:37)
[2019-08-02] MEDS: ASPIRIN 81 MG ECTAB PO SCH (09:37)
[2019-08-02] MEDS: OMEGA-3 (PURIFIED FISH OIL) 1 GM CAP PO SCH ×2 (09:37→20:10)
[2019-08-02] MEDS: LISINOPRIL 2.5 MG TAB PO SCH (09:37)
[2019-08-02] MEDS: HEPARIN SOD 5,000 UNIT/0.5 ML VIAL SQ SCH ×2 (09:38→20:11)
[2019-08-02] MEDS: carvediloL 6.25 MG TAB PO SCH ×2 (09:51→20:12)
[2019-08-02] MEDS ORDERED: carvediloL 3.125 MG TAB PO SCH (10:00)
--- NOTE | 2019-08-02 11:27 | Cardiology Progress Note ---
Date of Service August 02, 2019 Assessment & Plan (1) CHF (congestive heart failure): He presents in congestive heart failure with compatible symptoms starting perhaps 5 weeks ago, that was treated as a bronchitis or pulmonary condition. He did not have edema then so I cannot tell if that was correct and he has subsequently developed congestive heart failure although it is possible that this was congestive heart failure from the beginning. He needs to be treated with diuresis as well as fluid and salt restriction and we have been evaluating him for a cause although so far it appears to be idiopathic to find a cause of his heart failure. His studies have been negative including his protein electrophoresis and GIOVANY. I would continue diuresis, I would significantly increase his IV Lasix since he is not diuresing well at the moment. I spent a great deal of time in the room today discussing the physiology of heart failure and left ventricular dysfunction and the lack of identification of a specific cause. The patient's family was present during the discussion. (2) Cardiomyopathy: He has global hypokinesis of a severe extent, his left ventricular ejection fraction on admission was 15 to 20% and he had right ventricular involvement as well which could be secondary to his left ventricular dysfunction. The cause was not clear but it was worrisome that his troponin was rising. Catheterization did not show significant disease although he did have been minor coronary disease not related to his cardiomyopathy. I did repeat his echo to look at his left ventricular and right ventricular function, especially in light of his rising troponin after admission, and his left ventricular function appears to be about the same (markedly reduced), his right-sided pressures appear to be a little bit better as assessed by inferior vena cava collapse. Over the long run we need to try to titrate his beta-jayden and GIOVANY inhibitor however his blood pressure is borderline. He does not have symptoms of hypertension and I tried to increase his carvedilol to 6.25 mg twice a day, for some reason either the staff or the patient felt uncomfortable with that even though he did not have a hypotensive response to the medications in the fl st and he did not receive the higher dose. He is now back on the lower dose. (3) Elevated troponin: His troponin had increased significantly since arrival (It was only 0.276 on arrival, that evening it was 9.5 to and early the next morning 12.1). This is really not in keeping with his symptoms which suggest a much longer time course, however his coronary anatomy does not support ischemia. His troponin is back down to a little over 1, however since it is not negative this may indicate a component of ongoing myocarditis. That does not alter our therapy. (4) NSVT (nonsustained ventricular tachycardia): He has had several episodes of nonsustained ventricular tachycardia since arrival. There were 2 episodes which are both monomorphic, one 9 beats and one 10 beats in duration. Subsequently he had another 4 beat run. The heart rate ranges from 150 to 170 bpm. This is worrisome with his cardiomyopathy. He will certainly need beta-blockade long-term which we can gradually titrate which may help however we need to consider a LifeVest upon discharge. (5) CAD (coronary artery disease): He does have coronary artery disease however it is minor. He has risk factors (including family history) and given his age I would treat him with risk factor modification and I would continue a statin given his known disease. Aspirin may be reasonable although I believe debatable. Certainly his coronary disease does not have anything to do with his cardiomyopathy. Subjective His main complaint today is GI, he has a lot of difficulty eating and has to sit up and feel nauseous for about 3 to 4 hours after eating make it very difficult for him to eat, even if he eats a small amount. That has been present since his heart failure symptoms began. He feels that he has lost some fluid, but not a lot in the last few days. He still has significant edema and tries to keep his feet up but when he is nauseous he has to sit on the side of the bed which is evidently a good bit of the day. He has no other cardiovascular symptoms. I had gone up on his carvedilol yesterday in hopes of increasing beta-blockade since he has evidence of a high adrenaline state, however he apparently was uncomfortable about that, perhaps after receiving input from the staff about his blood pressure. It was therefore held both last evening and this morning, at the moment we are back down to 3.125 mg twice daily. Physical Exam Physical Exam: Constitutional: Alert, cooperative and in no distress. Pulmonary: Clear to auscultation bilaterally. Cardiac: Regular rhythm with no murmur, gallop or rub. Abdomen: Soft, nontender with normal bowel sounds. Extremities: +3 bilateral pretibial edema. Skin: No rash, ecchymoses or petechiae. Results & Data Vital Signs (Past 12 Hours) Vital Signs Temp Pulse Pulse Resp BP Pulse Ox 08/02/19 08:00 85 08/02/19 07:39 88 19 105/72 95 08/02/19 04:46 36.9 C 90 20 91/61 L 96 08/01/19 23:58 36.8 C 100 H 20 93/71 L 97 Laboratory Results Abnormal lab results 07/30/19 08/02/19 08/02/19 Range/Units 06:57 06:09 06:09 RBC 4.36 L (4.7-6.1) M/uL Calcium 8.2 L (8.5-10.1) mg/dl AST 41 H (15-37) U/L Troponin I (0-0.045) ng/ml NT-Pro-B Natriuret Pep 3756 H (0-450) pg/ml Total Protein 5.4 L (6.4-8.2) gm/dl Total Protein (PEP) 4.7 L (6.2-8.3) G/DL Albumin 2.4 L (3.4-5.0) gm/dl Albumin (PEP) 2.5 L (3.8-4.8) G/DL Albumin/Globulin Ratio 0.8 L (0.9-2) Sfew-4-Lypxngfn 0.3 L (0.4-0.6) G/DL Gamma Globulins 0.6 L (0.8-1.7) G/DL 08/02/19 Range/Units 06:09 RBC (4.7-6.1) M/uL Calcium (8.5-10.1) mg/dl AST (15-37) U/L Troponin I 1.230 H* (0-0.045) ng/ml NT-Pro-B Natriuret Pep (0-450) pg/ml Total Protein (6.4-8.2) gm/dl Total Protein (PEP) (6.2-8.3) G/DL Albumin (3.4-5.0) gm/dl Albumin (PEP) (3.8-4.8) G/DL Albumin/Globulin Ratio (0.9-2) Hcxu-0-Iwitkwmh (0.4-0.6) G/DL Gamma Globulins (0.8-1.7) G/DL Diagnostic Findings Telemetry: Sinus rhythm and sinus tachycardia PG Care Time/CCT Total # of Minutes Spent Total Time Spent with Patient: Total time spent is greater than 50% in coordination of care (as documented) at patient's floor/unit and/or counseling patient: (1) CHF (congestive heart failure) Heart failure chronicity: unspecified Heart failure type: unspecified Qualified Code(s): I50.9 - Heart failure, unspecified
--- NOTE | 2019-08-02 11:35 | Hospitalist Progress Note ---
Date of Service August 02, 2019 Assessment & Plan (1) CHF (congestive heart failure): Continue admit patient to PCU on telemetry for acute onset of congestive heart failure. Appreciate cardiology recommendations: Patient accepted to undergo cardiac catheterization for elevated troponin, and global hypokinesis with ejection fraction of 15 to 20% involving his right ventricle seen at the TTE. Patient will need a LifeVest upon discharge and beta-jayden as soon as out of very acute phase. Lipid panel-triglycerides 50 normal cholesterol 81 normal LDL 40 normal VLDL 10 normal HDL 31. Patient was started on atorvastatin 40 mg every afternoon even though his lipid panel profile is favorable. Carvedilol increased to 6.25 mg BID and Lisinopril 2.5 mg QD. ASA 81 mg PO daily. TTE repeated same and shows the left ventricle is moderately dilated. Left ventricular systolic function is severely reduced. The right ventricle is mild to moderately dilated. The right atrium is moderately dilated. There is a moderate to severe mitral regurgitation the inferior vena cava is moderately dilated.essentially unchanged echocardiogram from 07/29/2019 . Continue to follow BNP Replenish electrolytes as needed Check CBC and CMP daily Free water restriction to 1000 mils p.o. daily. Low-sodium diet Furosemide drip trended up to 10 milligrams per hour with expectant loss of 1.5 L/day, since output was not adequate. Improving U/O. Expectant urinary output >65 ml/hr. BMP at 20:00 PM. Keep potassium above 4 and magnesium above 2. Follow-up CHF clinic Cardiac rehabilitation DVT prophylaxis; Heparin 5000 twice daily Full code (2) Acute kidney injury: Resolved. Continue avoiding nephrotoxic agents. Monitor closely creatinine and GFR since patient is on furosemide drip. (3) Urinary tract infection: Discontinued ceftriaxone since patient already have over 72 hours of therapy and does not appear to have any more urinary tract infection. (4) Elevated troponin: Continues to be elevated , but trending down from the peak. (5) Pneumonia: Procalcitonin is negative 0.1. Patient less likely has pneumonia, and infiltrate seen on the CT scan could be result of congestive heart failure rather than pneumonia. He was treated for 5 weeks with Z-Xavi and doxycycline. (6) Discharge planning issues: Expectant stayed more than 2 nights. Disposition -if qualify would recommend SNF.Pt lives alone and has severely acutely compromised cardiac function. PT/OT, avoid strenuous exercises. (7) Bloating: Prandial bloating and discomfort, possibly due to gallbladder dyskinesia vs PUD/gastritis. Unlikely he has acute cholecystitis given normal range of markers such as WBC, Bili, AST/ALT, alkaline phosphatase. HIDA scan pending to rule out acute gallbladder etiology. General surgery did not recommend procedure under general anesthesia because patient has acute CHF with low ejection fraction of 10 to 15%. In case that surgery still needed and there is evidence of cystic duct obstruction, they recommended percutaneous colic cystostomy tube to drain the gallbladder via interventional radiology. Appreciate GI recs. Low-fat diet Started PPI Protonix 40 mg IV daily Per surgery patient may need further GI work-up if HIDA negative. Present on Admission?: Yes Subjective Patient seen and examined at the bedside. Patient diuresis was not as expected and net negative was only 850 mils in 24 hours. He continues to complain of GI discomfort specifically after he eats and indigestion of food. On occasions he feels nauseated. He burps all the time. His lower extremities are still edematous with 1+ pitting edema and that is very slowly improving. Patient did refuse this morning and yesterday night carvedilol 6.25 mg twice daily stating that he also have ongoing furosemide drip and his blood pressure is at the lower side and he was afraid that he will become lightheaded. This morning we discussed this again and he agreed to increase his carvedilol from 3.125 to 6.25 mg twice a day because that will help his his heart to recuperate faster.We also discussed that he is in very controlled environment and that we would do any thing to prevent his hypotension. Patient reports in great details he becomes short of breath with simple things such as dressing taking a shower and other activities of daily living. He lives by himself. His mother is at his bedside but she lives 30 minutes away. Patient denies fever, chills, chest pain, lightheadedness, headache, frequency, urgency, abdominal pain, dysuria, hematuria. Review of Systems Review of Systems: All systems reviewed & are unremarkable except as noted in HPI & below Physical Exam Constitutional: WD/WN, vitals as above well developed, + ill appearing and average body habitus Eyes: PERRL, conjunctivae normal, anicteric sclerae ENMT: external ear and nose normal, oropharynx normal Neck: trachea midline, no thyromegaly Respiratory: normal respiratory effort, lungs clear to auscultation Cardiovascular: Heart Sounds: normal S1 and normal S2 Palpation: + palpable S3 Vessels: + JVD and dorsalis pedis pulses present Extremities: + pedal edema and + edema (Improving. Pitting edema of lower extremity now 1+.) Gastrointestinal (Abdomen): normal bowel sounds, soft, nontender, no hepatosplenomegaly Musculoskeletal: no cyanosis or clubbing, extremities motor strength 5/5 Skin: no rashes, warm and dry Neurologic: patellar DTR's 2+ bilat, sensation intact Genitourinary: no testicular masses, no penis abnormality Lymphatic: no cervical or axillary lymphadenopathy Results & Data Vital Signs (Past 12 Hours) Vital Signs Temp Pulse Pulse Resp BP Pulse Ox 08/02/19 08:00 85 08/02/19 07:39 88 19 105/72 95 08/02/19 04:46 36.9 C 90 20 91/61 L 96 08/01/19 23:58 36.8 C 100 H 20 93/71 L 97 PG Care Time/CCT Total # of Minutes Spent Total Time Spent with Patient: Total time spent is greater than 50% in coordination of care (as documented) at patient's floor/unit and/or counseling patient: (1) CHF (congestive heart failure) Heart failure chronicity: unspecified Heart failure type: unspecified Qualified Code(s): I50.9 - Heart failure, unspecified (2) Pneumonia Laterality: right Lung location: lower lobe of lung Pneumonia type: due to unspecified organism Qualified Code(s): J18.1 - Lobar pneumonia, unspecified organism
[2019-08-02] MEDS ORDERED: carvediloL 6.25 MG TAB PO SCH (12:23)
[2019-08-02] MEDS ORDERED: carvediloL 3.125 MG TAB PO ONE (12:30)
[2019-08-02] MEDS: FUROSEMIDE 100 MG in DEXTROSE 5% 90 ML IV SCH ×2 (13:33→22:45)
--- NOTE | 2019-08-02 15:48 | Gastroenterology Progress Note ---
Date of Service August 02, 2019 Assessment & Plan (1) [age]oatin44 year old male presenting with acute heart failure w/ EF 15%, fluid overload, elevated troponin w/ negative cardiac cath who had CTAP for evaluation of right sided pressure showing mild gallbladder wall thickening. He is ext remely high risk for elective surgical procedures given his current cardiac status nor do his describe symptoms sound concerning for biliary colic. GI was asked to re-evaluate given reported post-prandial pain, fullness and gas/bloat which is all new since the onset of his cardiac symptoms. He denies GERD, reflux, regurgitation, dysphagia or change in bowel habits. Again his symptoms do not seem typical for biliary colic. Appreciate ongoing cardiology consultation and management of heart failure No current GI indication for endoscopy as he is extremely high risk w/o alarm symptoms Would recommend a trial of Omeprazole 20 mg daily Would recommend a trial of Gas-Ex as needed for gas/bloat Would recommend a trial of a daily probiotic LFTs are stable, lipase is non elevated Can consider a HIDA scan while in-house and outpatient general surgery evaluation for gallbladder wall thickening once medically stable. Dr. Dvais to provide coverage over the weekend - Please contact him with any acu te changes, questions or concerns after 1700. Thank you for allowing us to participate in the care of this patient. Present on Admission?: Yes Supervising Physician Co-Signing Physician Notes I saw and evaluated the patient. We were reconsulted for a question with regard to postprandial bloating. The patient does have significant heart disease with an EF of approximately 10%. It appears the patient has severe congestive heart failure. The patient does recall having a history of reflux and has been on doxycycline as an outpatient. Impression Postprandial bloating could be medication related or perhaps related to his underlying congestive heart failure as he has body wall anasarca. Patient does not have severe abdominal discomfort on physical examination nor right upper quadrant tenderness and has no obvious indication for endoscopy at the present time.. Recommendations protonix 40 mg/day Low residue diet Consider a HIDA scan and general surgery consultation given the gallbladder wall thickening Please call with questions or concerns, would hold on endoscopic evaluation at the present time given the patient's comorbid problems Consider an upper GI series to evaluate for evidence of peptic ulcer disease Subjective GI asked to re-evaluate, family at bedside. Notes persistent post-prandial discomfort, gas/bloat and epigastric burning. This was intermittent to start, now after all PO No nausea, vomiting. No GERD, reflux, regurgitation No change in bowel movements, no black/bloody stools. Review of Systems Constitutional: + fatigue and + weakness; no fever and no chills Respiratory: no cough and no dyspnea Cardiovascular: no chest pain and no dyspnea Gastrointestinal: + abdominal pain (epigastric/RUQ after PO, explained as burning), + bloating and + early satiety; no belching, no heartburn, no nausea, no vomiting, no coffee ground emesis, no hematemesis, no dysphagia, no cramping, no change in bowel habits, no change in stools, no constipation, no diarrhea/loose stools, no fecal incontinence, no blood in stools and no melena Physical Exam Constitutional: no acute distress and not ill appearing Neck: trachea midline Respiratory: normal respiratory effort, lungs clear to auscultation Cardiovascular: Rate/Rhythm: regular rate and regular rhythm Extremities: + edema (2+ bilateral) Gastrointestinal (Abdomen): Inspection/Auscultation: + abdomen distended (mild, but soft abd) and normal bowel sounds Percussion/Palpation: + abdomen tender (mild, w/ palpation) and abdomen soft; no guarding and abdomen not rigid Skin: no rashes, warm and dry Results & Data Vital Signs (Past 12 Hours) Vital Signs Temp Pulse Pulse Pulse Resp BP Pulse Ox 08/02/19 14:32 97 08/02/19 11:39 36.0 C L 104 H 18 101/73 97 08/02/19 08:00 85 08/02/19 07:39 88 19 105/72 95 08/02/19 04:46 36.9 C 90 20 91/61 L 96 Laboratory Results 08/02/19 08/02/19 08/02/19 Range/Units 06:09 06:09 06:09 WBC 5.26 (4.8-10.8) K/uL RBC 4.36 L (4.7-6.1) M/uL Hgb 14.3 (14.0-18.0) g/dL Hct 42.7 (42-52) % MCV 97.9 (80-100) fL MCH 32.8 (25-34) pg MCHC 33.5 (32-36) g/dL RDW Std Deviation 46.3 (36.4-46.3) fL RDW Coeff of Leona 12.9 (11.5-14.5) % Plt Count 200 (130-400) K/uL MPV 9.9 (7.4-10.4) fL Immature Gran % (Auto) 0.2 % Neut % (Auto) 60.6 % Lymph % (Auto) 30.2 % [place] % (Auto) 8.2 % Eos % (Auto) 0.6 % Baso % (Auto) 0.2 % Immature Gran # (Auto) 0.01 (0.00-0.02) K/uL Neut # (Auto) 3.19 (1.4-6.5) K/uL Lymph # (Auto) 1.59 (1.2-3.4) K/uL [place] # (Auto) 0.43 (0.11-0.59) K/uL Eos # (Auto) 0.03 (0-0.5) K/uL Baso # (Auto) 0.01 (0-0.2) K/uL Sodium 136 (136-145) mmol/L Potassium 3.6 (3.5-5.1) mmol/L Chloride 105 (98-107) mmol/L Carbon Dioxide 21 (21-32) mmol/L Anion Gap 10.0 (3-11) BUN 17 (7-18) mg/dl Creatinine 1.08 (0.6-1.4) mg/dl Est Cr Clr Drug Dosing 104.9 ml/min Est GFR ( Amer) 94.9 Est GFR (Non-Af Amer) 81.9 BUN/Creatinine Ratio 15.5 (10-20) Glucose 99 (70-99) mg/dl Calcium 8.2 L (8.5-10.1) mg/dl Total Bilirubin 0.7 (0.2-1) mg/dl AST 41 H (15-37) U/L ALT 23 (12-78) U/L Alkaline Phosphatase 100 (45-117) U/L Troponin I 1.230 H* (0-0.045) ng/ml NT-Pro-B Natriuret Pep 3756 H (0-450) pg/ml Total Protein 5.4 L (6.4-8.2) gm/dl Total Protein (PEP) (6.2-8.3) G/DL Albumin 2.4 L (3.4-5.0) gm/dl Albumin (PEP) (3.8-4.8) G/DL Globulin 3.0 (2.5-4.0) gm/dl Albumin/Globulin Ratio 0.8 L (0.9-2) Xjfxr-7-Qfffekowy (0.2-0.3) G/DL Gguqb-6-Qbublbxtc (0.5-0.9) G/DL Ttvy-5-Tnfdbxze (0.4-0.6) G/DL Kkqa-7-Vyxjlagw (0.2-0.5) G/DL Gamma Globulins (0.8-1.7) G/DL Monoclonal Peak 3 (NOT DETECTED) G/DL Ser Monoclonl Protein (NOT DETECTED) G/DL Ser Monoclonal Prot 2 (NOT DETECTED) G/DL PEP Interpretation Angiotensin Convert Enz (9-67) U/L 07/30/19 Range/Units 06:57 WBC (4.8-10.8) K/uL RBC (4.7-6.1) M/uL Hgb (14.0-18.0) g/dL Hct (42-52) % MCV (80-100) fL MCH (25-34) pg MCHC (32-36) g/dL RDW Std Deviation (36.4-46.3) fL RDW Coeff of Leona (11.5-14.5) % Plt Count (130-400) K/uL MPV (7.4-10.4) fL Immature Gran % (Auto) % Neut % (Auto) % Lymph % (Auto) % [place] % (Auto) % Eos % (Auto) % Baso % (Auto) % Immature Gran # (Auto) (0.00-0.02) K/uL Neut # (Auto) (1.4-6.5) K/uL Lymph # (Auto) (1.2-3.4) K/uL [place] # (Auto) (0.11-0.59) K/uL Eos # (Auto) (0-0.5) K/uL Baso # (Auto) (0-0.2) K/uL Sodium (136-145) mmol/L Potassium (3.5-5.1) mmol/L Chloride (98-107) mmol/L Carbon Dioxide (21-32) mmol/L Anion Gap (3-11) BUN (7-18) mg/dl Creatinine (0.6-1.4) mg/dl Est Cr Clr Drug Dosing ml/min Est GFR ( Amer) Est GFR (Non-Af Amer) BUN/Creatinine Ratio (10-20) Glucose (70-99) mg/dl Calcium (8.5-10.1) mg/dl Total Bilirubin (0.2-1) mg/dl AST (15-37) U/L ALT (12-78) U/L Alkaline Phosphatase (45-117) U/L Troponin I (0-0.045) ng/ml NT-Pro-B Natriuret Pep (0-450) pg/ml Total Protein (6.4-8.2) gm/dl Total Protein (PEP) 4.7 L (6.2-8.3) G/DL Albumin (3.4-5.0) gm/dl Albumin (PEP) 2.5 L (3.8-4.8) G/DL Globulin (2.5-4.0) gm/dl Albumin/Globulin Ratio (0.9-2) Vkbrx-8-Xmbfeakci 0.3 (0.2-0.3) G/DL Crmyr-1-Uzdomjcaj 0.7 (0.5-0.9) G/DL Hjsx-8-Aghhgfzx 0.3 L (0.4-0.6) G/DL Tmhu-5-Zhqtonxt 0.3 (0.2-0.5) G/DL Gamma Globulins 0.6 L (0.8-1.7) G/DL Monoclonal Peak 3 DNR (NOT DETECTED) G/DL Ser Monoclonl Protein DNR (NOT DETECTED) G/DL Ser Monoclonal Prot 2 DNR (NOT DETECTED) G/DL PEP Interpretation SEE NOTE Angiotensin Convert Enz 25 (9-67) U/L
--- NOTE | 2019-08-02 16:28 | Surgery Consultation ---
Date of Consultation August 02, 2019 Assessment & Plan (1) [age]oatin year-old male who presented to emergency department with swelling, chest pain, weight gain, and abdominal bloating postprandial last Monday. Found to have acute onset of congestive heart failure with EF of 15-20%. CT scan of abdomen and pelvis showing contracted gallbladder with slightly edematous wall. No leukocytosis. LFTS and t. bili wnl. Plan: Patients post prandial bloating and discomfort could be due to gallbladder dyskinesia vs PUD/gastritis. Unlikely he has acute cholecystitis given no leukocytosis and t. bili and lfts wnl however will order HIDA scan to r/o any acute gallbladder etiology. Would recommend PPI given symptoms and recent oral abx In the setting of biliary dyskinesia and no acute gallbladder findings would recommend against surgical intervention due to his CHF and very low EF of 10- 15%. He would be at very high risk with procedure requiring general anesthesia. If there is acute cholecystitis or evidence of cystic duct obstruction would likely recommend percutaneous cholecystostomy tube to drain gallbladder via interventional radiology. Would recommend low fat diet Will await HIDA scan results May need further GI work-up if HIDA negative Continue medical management (2) CHF (congestive heart failure): Dr. Baeza has seen and examined pt, agrees with above. History of Present Illness Reason for Consultation: Gallbladder wall thickening Requesting Physician: Carlton Parks MD Attending Physician: Carlton Parks MD History of Present Illness Lonnie is a pleasant 44 year-old male who presented to emergency department last Monday with complaint of swelling in his legs and weight gain with some chest pain. Patient was found to have acute onset of congestive heart failure with EF of 15-20%. He has no significant medical history and does not take any home medications. States in the last 3-4 weeks has noticed abdominal bloating and discomfort after eating which usually came into effect 1-2 hours after eating and would last a few hours until he was able to belch for relief. States he has burning sensation but not abdominal pain. States he had one episode of heartburn many years ago but no significant GERD or history of stomach issues or ulcers. Never has had upper endoscopy. Never had any issues or prior imaging of his gallbladder. Denies of any vomiting. Denies of any changes in his bowel habits, diarrhea, constipation, blood in stools, black/tarry stools, thin stools, acholic stools. Denies of prior colonoscopy. Our services have been asked to evaluate patient given evidence of contracted gallbladder and edematous wall with above GI complaints. Patient states that this seem to all start to happen after being prescribed antibiotics and steroids for his Bronchitis as an outpatient. Allergies Allergy/AdvReac Type Severity Reaction Status Date / Time No Known Allergies Allergy Unverified 07/28/19 14:21 Home Medications Home Medications Medication Instructions Recorded Confirmed Type No Known Home Medications 07/28/19 07/28/19 History Patient History Medical History Bronchitis Social History Preferred Language: Uzbek Communication Ability: Effective Beliefs That Will Affect Care: None marital status: Single Current Living Situation: Alone Feels Safe at Home: Yes Smoking Status: Former smoker Hx Alcohol Use: Yes Alcohol type: beer Hx Substance Use: No Review of Systems Review of Systems: All systems reviewed & are unremarkable except as noted in HPI & below Physical Exam Constitutional: WD/WN, vitals as above no acute distress Respiratory: normal respiratory effort, lungs clear to auscultation Cardiovascular: RRR, no murmur, no edema Gastrointestinal (Abdomen): Inspection/Auscultation: abdomen normal to inspection; abdomen not distended and + abnormal bowel sounds Percussion/Palpation: abdomen soft; abdomen nontender, no guarding and abdomen not rigid Skin: no rashes, warm and dry Psychiatric: A+Ox3, euthymic affect Results & Data Vital Signs (Past 12 Hours) Vital Signs Temp Pulse Pulse Pulse Resp BP Pulse Ox 08/02/19 16:11 83 08/02/19 15:49 36.6 C 83 20 93/61 L 94 08/02/19 14:32 97 08/02/19 11:39 36.0 C L 104 H 18 101/73 97 08/02/19 08:00 85 08/02/19 07:39 88 19 105/72 95 08/02/19 04:46 36.9 C 90 20 91/61 L 96 Laboratory Results 08/02/19 08/02/19 08/02/19 Range/Units 06:09 06:09 06:09 WBC 5.26 (4.8-10.8) K/uL RBC 4.36 L (4.7-6.1) M/uL Hgb 14.3 (14.0-18.0) g/dL Hct 42.7 (42-52) % MCV 97.9 (80-100) fL MCH 32.8 (25-34) pg MCHC 33.5 (32-36) g/dL RDW Std Deviation 46.3 (36.4-46.3) fL RDW Coeff of Leona 12.9 (11.5-14.5) % Plt Count 200 (130-400) K/uL MPV 9.9 (7.4-10.4) fL Immature Gran % (Auto) 0.2 % Neut % (Auto) 60.6 % Lymph % (Auto) 30.2 % [place] % (Auto) 8.2 % Eos % (Auto) 0.6 % Baso % (Auto) 0.2 % Immature Gran # (Auto) 0.01 (0.00-0.02) K/uL Neut # (Auto) 3.19 (1.4-6.5) K/uL Lymph # (Auto) 1.59 (1.2-3.4) K/uL [place] # (Auto) 0.43 (0.11-0.59) K/uL Eos # (Auto) 0.03 (0-0.5) K/uL Baso # (Auto) 0.01 (0-0.2) K/uL Sodium 136 (136-145) mmol/L Potassium 3.6 (3.5-5.1) mmol/L Chloride 105 (98-107) mmol/L Carbon Dioxide 21 (21-32) mmol/L Anion Gap 10.0 (3-11) BUN 17 (7-18) mg/dl Creatinine 1.08 (0.6-1.4) mg/dl Est Cr Clr Drug Dosing 104.9 ml/min Est GFR ( Amer) 94.9 Est GFR (Non-Af Amer) 81.9 BUN/Creatinine Ratio 15.5 (10-20) Glucose 99 (70-99) mg/dl Calcium 8.2 L (8.5-10.1) mg/dl Total Bilirubin 0.7 (0.2-1) mg/dl AST 41 H (15-37) U/L ALT 23 (12-78) U/L Alkaline Phosphatase 100 (45-117) U/L Troponin I 1.230 H* (0-0.045) ng/ml NT-Pro-B Natriuret Pep 3756 H (0-450) pg/ml Total Protein 5.4 L (6.4-8.2) gm/dl Total Protein (PEP) (6.2-8.3) G/DL Albumin 2.4 L (3.4-5.0) gm/dl Albumin (PEP) (3.8-4.8) G/DL Globulin 3.0 (2.5-4.0) gm/dl Albumin/Globulin Ratio 0.8 L (0.9-2) Kaqbf-7-Neadvpmry (0.2-0.3) G/DL Fnoka-9-Xlusuoxyd (0.5-0.9) G/DL Nysw-2-Metfpodx (0.4-0.6) G/DL Aymc-4-Onhalues (0.2-0.5) G/DL Gamma Globulins (0.8-1.7) G/DL Monoclonal Peak 3 (NOT DETECTED) G/DL Ser Monoclonl Protein (NOT DETECTED) G/DL Ser Monoclonal Prot 2 (NOT DETECTED) G/DL PEP Interpretation Angiotensin Convert Enz (9-67) U/L 07/30/19 Range/Units 06:57 WBC (4.8-10.8) K/uL RBC (4.7-6.1) M/uL Hgb (14.0-18.0) g/dL Hct (42-52) % MCV (80-100) fL MCH (25-34) pg MCHC (32-36) g/dL RDW Std Deviation (36.4-46.3) fL RDW Coeff of Leona (11.5-14.5) % Plt Count (130-400) K/uL MPV (7.4-10.4) fL Immature Gran % (Auto) % Neut % (Auto) % Lymph % (Auto) % [place] % (Auto) % Eos % (Auto) % Baso % (Auto) % Immature Gran # (Auto) (0.00-0.02) K/uL Neut # (Auto) (1.4-6.5) K/uL Lymph # (Auto) (1.2-3.4) K/uL [place] # (Auto) (0.11-0.59) K/uL Eos # (Auto) (0-0.5) K/uL Baso # (Auto) (0-0.2) K/uL Sodium (136-145) mmol/L Potassium (3.5-5.1) mmol/L Chloride (98-107) mmol/L Carbon Dioxide (21-32) mmol/L Anion Gap (3-11) BUN (7-18) mg/dl Creatinine (0.6-1.4) mg/dl Est Cr Clr Drug Dosing ml/min Est GFR ( Amer) Est GFR (Non-Af Amer) BUN/Creatinine Ratio (10-20) Glucose (70-99) mg/dl Calcium (8.5-10.1) mg/dl Total Bilirubin (0.2-1) mg/dl AST (15-37) U/L ALT (12-78) U/L Alkaline Phosphatase (45-117) U/L Troponin I (0-0.045) ng/ml NT-Pro-B Natriuret Pep (0-450) pg/ml Total Protein (6.4-8.2) gm/dl Total Protein (PEP) 4.7 L (6.2-8.3) G/DL Albumin (3.4-5.0) gm/dl Albumin (PEP) 2.5 L (3.8-4.8) G/DL Globulin (2.5-4.0) gm/dl Albumin/Globulin Ratio (0.9-2) [place]-3-Tkgxcvdrv 0.3 (0.2-0.3) G/DL Cspqp-5-Quciwjtbx 0.7 (0.5-0.9) G/DL Hkhr-8-Hhoinfsz 0.3 L (0.4-0.6) G/DL Jvln-1-Pslghlwk 0.3 (0.2-0.5) G/DL Gamma Globulins 0.6 L (0.8-1.7) G/DL Monoclonal Peak 3 DNR (NOT DETECTED) G/DL Ser Monoclonl Protein DNR (NOT DETECTED) G/DL Ser Monoclonal Prot 2 DNR (NOT DETECTED) G/DL PEP Interpretation SEE NOTE Angiotensin Convert Enz 25 (9-67) U/L Diagnostic Findings CT abd pelvis wo con CT DOSE: 928.71 mGycm HISTORY: Lung pain right flank pain TECHNIQUE: Multiaxial CT images of the abdomen and pelvis were performed without contrast. A dose lowering technique was utilized adhering to the principles of ALARA. COMPARISON STUDY: None. FINDINGS: Diffuse parenchymal infiltrative process right lung base. Small associated right effusion. Scattered parenchymal infiltrative changes left base medially. Trace hepatic as well as perisplenic ascites. Mild gallbladder wall thickening. Kidneys are considered negative for hydronephrosis. Several small scattered reactive mesenteric and/or retroperitoneal nodes. Nonobstructive bowel pattern. Moderate body wall anasarca. The appendix is normal. Mild pelvic and cul-de-sac ascites. Bladder is midline. IMPRESSION: 1. Diffuse right basilar parenchymal infiltrate associated with a right effusion. 2. Scattered parenchymal infiltrative changes left lung base. 3. Mild body wall anasarca. 4. Mild abdominal and pelvic ascites. 5. Somewhat contracted gallbladder with slightly edematous wall 6. No evidence for hydronephrosis or obstruction of the urinary tract. 7. Nonobstructive bowel pattern with a normal appendix. (1) CHF (congestive heart failure) Heart failure chronicity: unspecified Heart failure type: unspecified Qual ified Code(s): I50.9 - Heart failure, unspecified
[2019-08-02] MEDS ORDERED: FAMOTIDINE 20 MG in SYRINGE 3 ML IV SCH (18:30)
[2019-08-02] MEDS: PANTOprazole 40 MG in SYRINGE 0 ML IV SCH (18:50)
[2019-08-02] MEDS: POTASSIUM CHLORIDE 20 MEQ TABCR PO SCH (20:12)
[2019-08-02 20:35] LABS: BUN Creatinine Ratio 13.1 (10-20); Calcium 8.5 mg/dl (8.5-10.1); Creatinine Clr Calc Pharmacy 92.1 ml/min; Est GFR (African American) 81.1; Magnesium 1.8 mg/dl (1.8-2.4); Potassium 3.7 mmol/L (3.5-5.1)
[2019-08-03 06:48] LABS: Basophils # (auto) 0.02 K/uL (0-0.2); Basophils % (auto) 0.4 %; Eosinophils # (auto) 0.03 K/uL (0-0.5); Eosinophils % (auto) 0.5 %; Hematocrit (blood only) 41.8 % (42-52); Hemoglobin 14.3 g/dL (14.0-18.0); Lymphocytes # (auto) 2.25 K/uL (1.2-3.4); Lymphocytes % (auto) 40.9 %; Mean Corpuscular Hemoglobin 33.1 pg (25-34); Mean Corpuscular Hgb Conc 34.2 g/dL (32-36); Mean Corpuscular Volume 96.8 fL (80-100); Mean Platelet Volume 9.6 fL (7.4-10.4); Monocytes # (auto) 0.38 K/uL (0.11-0.59); Monocytes % (auto) 6.9 %; Neutrophils # (auto) 2.82 K/uL (1.4-6.5); Neutrophils % (auto) 51.3 %; Platelet Count 213 K/uL (130-400); RDW Coefficient of Variation 12.8 % (11.5-14.5); RDW Standard Deviation 44.9 fL (36.4-46.3); Red Blood Count 4.32 M/uL (4.7-6.1)
[2019-08-03 07:33] LABS: Albumin Level 2.5 gm/dl (3.4-5.0); BUN Creatinine Ratio 12.5 (10-20); Calcium 8.1 mg/dl (8.5-10.1); Est GFR (African American) 93.8; Potassium 3.5 mmol/L (3.5-5.1)
[2019-08-03 07:38] LABS: Albumin Globulin Ratio 0.8 (0.9-2); Bilirubin,Total 0.9 mg/dl (0.2-1); Globulin 3.1 gm/dl (2.5-4.0); Total Protein 5.6 gm/dl (6.4-8.2)
[2019-08-03] MEDS: PANTOprazole 40 MG in SYRINGE 0 ML IV SCH (07:51)
[2019-08-03] MEDS: carvediloL 6.25 MG TAB PO SCH ×3 (07:53→20:51)
[2019-08-03] MEDS: POTASSIUM CHLORIDE 20 MEQ TABCR PO SCH ×2 (07:53→20:51)
[2019-08-03] MEDS: ASPIRIN 81 MG ECTAB PO SCH (07:54)
[2019-08-03] MEDS: LISINOPRIL 2.5 MG TAB PO SCH (07:54)
[2019-08-03] MEDS: OMEGA-3 (PURIFIED FISH OIL) 1 GM CAP PO SCH ×2 (07:54→20:52)
[2019-08-03] MEDS: LACTOBACILLUS ACIDOPHILUS (FLORANEX) TAB PO SCH (07:55)
[2019-08-03] MEDS: ATORVASTATIN 40 MG TAB PO SCH (07:55)
[2019-08-03] MEDS: HEPARIN SOD 5,000 UNIT/0.5 ML VIAL SQ SCH ×2 (07:55→20:52)
[2019-08-03] MEDS: FUROSEMIDE 100 MG in DEXTROSE 5% 90 ML IV SCH ×2 (08:57→18:07)
--- NOTE | 2019-08-03 09:08 | Surgery Progress Note ---
Date of Service August 03, 2019 Assessment & Plan (1) Abdominal pain in male: improved on PPI HIDA scan to ensure no biliary cause of pain would recommend lap nina only for acute cholecystitis with poor cardiac function Subjective Pain and abdominal complaints better after beginning PPI no N/V Review of Systems Constitutional: no fever and no chills Respiratory: no dyspnea Cardiovascular: no chest pain and no dyspnea Gastrointestinal: no abdominal pain, no nausea, no vomiting and no dysphagia Genitourinary: no dysuria Musculoskeletal: no back pain Neurologic: no problem reported Psychiatric: no problem reported Physical Exam Constitutional: well developed and well nourished Neck: trachea midline Respiratory: normal respiratory effort Auscultation: + diminished lung sounds Cardiovascular: Rate/Rhythm: regular rate and regular rhythm Gastrointestinal (Abdomen): Inspection/Auscultation: abdomen normal to inspection and normal bowel sounds; abdomen not distended Percussion/Palpation: abdomen soft; abdomen nontender, no guarding and no hepatomegaly Musculoskeletal: Head/Neck/Chest: normocephalic and head atraumatic Skin: no rashes, warm and dry Psychiatric: A+Ox3, euthymic affect Results & Data Vital Signs (Past 12 Hours) Vital Signs Temp Pulse Pulse Pulse Resp BP Pulse Ox 08/03/19 07:11 36.4 C L 91 H 20 97/71 L 97 08/03/19 03:58 36.6 C 78 19 104/70 96 08/03/19 00:10 36.3 C L 88 18 91/65 L 98 08/03/19 00:00 82
[2019-08-03] MEDS: PANTOprazole 40 MG TAB PO SCH (10:18)
[2019-08-03] MEDS: MAGNESIUM OXIDE 400 MG TAB PO SCH ×2 (10:18→20:51)
[2019-08-03] MEDS: [UNRECOGNIZED DRUG - OTHER] PO SCH (17:02)
[2019-08-03] MEDS: [UNRECOGNIZED DRUG - OTHER] PO SCH (17:03)
--- NOTE | 2019-08-03 17:37 | Hospitalist Progress Note ---
Date of Service August 03, 2019 Assessment & Plan (1) Acute systolic CHF (congestive heart failure): Etiology of such is uncertain. It is nonischemic in origin as proven with recent heart cath (see below). It is possible this was a viral-driven myocarditis leading to cardiomyopathy/systolic CHF. SPEP (to r/o MM), GIOVANY (to r/o sarcoid), etc negative. Consider cardiac MRI following d/c? Has been initiated on goal-directed therapy with BB & GIOVANY. Appreciate cardiology consult & recs. Remains on lasix drip and has been net negative for the last 48 hours. Creatinine remains stable. Cont lasix drip until euvolemic. BMP/mag am. (2) Cardiomyopathy: Nonischemic. See above in "acute systolic CHF." (3) NSVT (nonsustained ventricular tachycardia): Multiple runs of NSVT during the stay. Thus, LifeVest has been requested and was delivered today. If future outpatient echos continue to show depressed EF <30% over time he would then he potentially would be a candidate for pacer/ICD. Defer that to cardiology. Cont tele. keep K >4. keep mag ~2. (4) CAD (coronary artery disease): minimal nonobstructive LAD disease on recent heart cath. cont statin. cont BB. cont GIOVANY. cont asa. (5) Elevated troponin: NOT due to ACS. Doubt that simple myocardial demand ischemia caused the troponin rise to double digits. Myocarditis was entertained as a possible etiology. Either way the troponin peaked and fell quickly. (6) Bloating: Suspect some element of bloating is due to body wall edema, ascites, etc. He was started on PPI by GI in the event he has gastritis. Gall bladder was edematous on imaging and thus gen surg was also involved. HIDA scan recommended on Monday to r/o chronic biliary dyskinesia. He is otherwise tolerating meals. He has no symptoms of acute cholecystitis. Follow. (7) DVT prophylaxis: heparin 5000 BID should be on TID dosing -- will change such Subjective telemetry - brief run of NSVT yesterday but none overnight. he overall is feeling better. still with mild COO[place] but MUCH better. still with orthopnea but also improved. denies PND. no chest pain or tightness. does c/o ongoing abdominal bloating but this, too, seems better. Reports bloating is in the upper abdomen and it "takes away my ability to breath." the bloating has improved with addition of PPI. denies nausea. denies actual abdominal pain. edema also improving. father at bedside -- questions answered. LifeVest service support representative was also present and about to demonstrate the device to the pt and his father. Patient denies true infectious symptoms 6 weeks ago. At that time he simply couldn't breath. Had mild cough then too. Review of Systems Constitutional: + fatigue; no fever, no chills and no anorexia Respiratory: + dyspnea on exertion; no wheezing Cardiovascular: + orthopnea and + edema; no chest pain, no dyspnea at rest and no paroxysmal nocturnal dyspnea Gastrointestinal: + bloating; no abdominal pain, no nausea, no vomiting, no constipation and no diarrhea/loose stools Physical Exam Constitutional: well developed, well nourished and average body habitus; no acute distress and no altered mental status ENMT: external ear and nose normal, oropharynx normal Respiratory: Auscultation: + diminished lung sounds (bases) and + crackles (fine, bases); no wheezes Cardiovascular: Rate/Rhythm: regular rate and regular rhythm Heart Sounds: normal S1 and normal S2; no murmur Vessels: + JVD, posterior tibial pulses present and dorsalis pedis pulses present Extremities: + edema (3+ b/l) Gastrointestinal (Abdomen): normal bowel sounds, soft, nontender, no hepatosplenomegaly Skin: no rashes, warm and dry Psychiatric: A+Ox3, euthymic affect Results & Data Vital Signs (Past 12 Hours) Vital Signs Temp Pulse Pulse Pulse Resp BP Pulse Ox 08/03/19 15:22 36.3 C L 90 18 99/69 L 98 08/03/19 11:45 36.4 C L 84 20 102/68 97 08/03/19 10:54 91 H 90/68 L 08/03/19 10:43 90 08/03/19 08:03 88 96/64 L 08/03/19 07:11 36.4 C L 91 H 20 97/71 L 97 Laboratory Results Laboratory Results - last 24 hr 08/03/19 08/03/19 06:28 06:28 WBC 5.50 RBC 4.32 L Hgb 14.3 Hct 41.8 L MCV 96.8 MCH 33.1 MCHC 34.2 RDW Std Deviation 44.9 RDW Coeff of Leona 12.8 Plt Count 213 MPV 9.6 Immature Gran % (Auto) 0.0 Neut % (Auto) 51.3 Lymph % (Auto) 40.9 [place] % (Auto) 6.9 Eos % (Auto) 0.5 Baso % (Auto) 0.4 Immature Gran # (Auto) 0.00 Neut # (Auto) 2.82 Lymph # (Auto) 2.25 [place] # (Auto) 0.38 Eos # (Auto) 0.03 Baso # (Auto) 0.02 Sodium 137 Potassium 3.5 Chloride 105 Carbon Dioxide 22 Anion Gap 10.0 BUN 14 Creatinine 1.09 Est Cr Clr Drug Dosing 104.0 Est GFR ( Amer) 93.8 Est GFR (Non-Af Amer) 81.0 BUN/Creatinine Ratio 12.5 Glucose 100 H Calcium 8.1 L Total Bilirubin 0.9 AST 41 H ALT 24 Alkaline Phosphatase 103 NT-Pro-B Natriuret Pep 3274 H Total Protein 5.6 L Albumin 2.5 L Globulin 3.1 Albumin/Globulin Ratio 0.8 L PG Care Time/CCT Total # of Minutes Spent Total Time Spent with Patient: Total time spent is greater than 50% in coordination of care (as documented) at patient's floor/unit and/or counseling patient: (1) Cardiomyopathy Cardiomyopathy type: unspecified Qualified Code(s): I42.9 - Cardiomyopathy, unspecified (2) CAD (coronary artery disease) Coronary Disease-Associated Artery/Lesion type: [place] artery [place] vs. transplanted heart: [place] heart Associated angina: without angina Qualified Code(s): I25.10 - Atherosclerotic heart disease of [place] coronary artery without angina pectoris
[2019-08-04] MEDS: ACETAMINOPHEN 325 MG TAB PO PRN (01:59)
[2019-08-04] MEDS: FUROSEMIDE 100 MG in DEXTROSE 5% 90 ML IV SCH ×3 (02:44→22:34)
[2019-08-04] MEDS: HEPARIN SOD 5,000 UNIT/0.5 ML VIAL SQ SCH ×3 (05:56→20:50)
[2019-08-04 07:21] LABS: BUN Creatinine Ratio 10.8 (10-20); Calcium 8.3 mg/dl (8.5-10.1); Creatinine Clr Calc Pharmacy 92.1 ml/min; Est GFR (African American) 81.1; Potassium 3.8 mmol/L (3.5-5.1)
[2019-08-04] MEDS: ATORVASTATIN 40 MG TAB PO SCH (07:46)
[2019-08-04] MEDS: PANTOprazole 40 MG TAB PO SCH (07:46)
[2019-08-04] MEDS: POTASSIUM CHLORIDE 20 MEQ TABCR PO SCH ×2 (07:46→21:03)
[2019-08-04] MEDS: carvediloL 6.25 MG TAB PO SCH ×2 (07:46→20:51)
[2019-08-04] MEDS: LISINOPRIL 2.5 MG TAB PO SCH (07:47)
[2019-08-04] MEDS: OMEGA-3 (PURIFIED FISH OIL) 1 GM CAP PO SCH ×2 (07:47→20:51)
[2019-08-04] MEDS: MAGNESIUM OXIDE 400 MG TAB PO SCH ×2 (07:47→20:52)
[2019-08-04] MEDS: ASPIRIN 81 MG ECTAB PO SCH (07:47)
[2019-08-04] MEDS: [UNRECOGNIZED DRUG - OTHER] PO SCH ×3 (07:48→20:53)
[2019-08-04] MEDS: [UNRECOGNIZED DRUG - OTHER] PO SCH (07:48)
--- NOTE | 2019-08-04 10:17 | Surgery Progress Note ---
Date of Service August 04, 2019 Assessment & Plan (1) Abdominal pain in male: HIDA in AM doubt GB is issue Subjective feeling better on PPI still some intermittent pain Review of Systems Constitutional: no fever and no chills Respiratory: no cough and no dyspnea Cardiovascular: no chest pain Gastrointestinal: + abdominal pain (improving); no nausea and no vomiting Genitourinary: no dysuria Musculoskeletal: no back pain Physical Exam Constitutional: well developed and well nourished Neck: trachea midline Respiratory: normal respiratory effort, lungs clear to auscultation Cardiovascular: RRR, no murmur, no edema Gastrointestinal (Abdomen): Inspection/Auscultation: normal bowel sounds; abdomen not distended Percussion/Palpation: + abdomen tender (kild) and abdomen soft; no guarding Musculoskeletal: Head/Neck/Chest: normocephalic and head atraumatic Skin: no rashes, warm and dry Results & Data Vital Signs (Past 12 Hours) Vital Signs Temp Pulse Pulse Pulse Resp BP Pulse Ox 08/04/19 07:19 36.1 C L 85 16 101/70 97 08/04/19 04:00 36.6 C 91 H 18 97/72 L 96 08/03/19 23:57 90 08/03/19 22:54 36.5 C 90 18 94/63 L 94
--- NOTE | 2019-08-04 20:15 | Hospitalist Progress Note ---
Date of Service August 04, 2019 Assessment & Plan (1) Acute systolic CHF (congestive heart failure): Etiology of such is uncertain. It is nonischemic in origin as proven with recent heart cath (see below). It is possible this was a viral-driven myocarditis leading to cardiomyopathy/systolic CHF. SPEP (to r/o MM), GIOVANY (to r/o sarcoid), etc negative. Consider cardiac MRI following d/c to r/o infiltrative disease/other?? Defer to cardiology. Has been initiated on goal-directed therapy with BB & GIOVANY. Appreciate cardiology consult & recs. Remains on lasix drip at 10mg/hr. He has lost at least 6kg of weight since admission. Creatinine remains stable although went up slightly overnight. Cont lasix drip until euvolemic. BMP/mag stable. OK from my standpoint to loosen fluid restriction to 1500cc/day at his request. LifeVest has been delivered by company security representative. (2) Cardiomyopathy: Nonischemic. See above in "acute systolic CHF." (3) NSVT (nonsustained ventricular tachycardia): Multiple runs of NSVT during the stay. Thus, LifeVest has been requested and was delivered (although pt stated the first vest delivered was not working??). If future outpatient echos continue to show depressed EF <30% over time he would then he potentially would be a candidate for pacer/ICD. Defer that to cardiology. Cont tele. keep K >4. keep mag ~2. (4) CAD (coronary artery disease): minimal nonobstructive LAD disease on recent heart cath. cont statin. cont BB. cont GIOVANY. cont asa. (5) Elevated troponin: NOT due to ACS. Doubt that simple myocardial demand ischemia caused the troponin rise to peak of 12. Myocarditis was entertained as a possible etiology. Either way the troponin peaked and fell quickly. (6) Bloating: Suspect some element of bloating is due to body wall edema, ascites, etc. He was started on PPI by GI in the event he has gastritis. Gall bladder was edematous on imaging and thus gen surg was consulted. HIDA scan recommended on Monday to r/o chronic biliary dyskinesia. He is otherwise tolerating meals. He has no symptoms of acute cholecystitis. Follow. NPO after MN tonight. HIDA scan tomorrow. If HIDA is negative and bloating persists despite achieving euvolemia -- then outpatient f/u with GI. (7) DVT prophylaxis: heparin 5000 TID pt's mother updated at bedside today anticipated d/c date -- perhaps in 48 hours? Subjective patient overall continues to feel better. less COOLEY. less edema. orthopnea improved. during the visit today his mother was at bedside. they both had questions about potential d/c date, how often he would have f/u w/ cardiology, etc. he felt anxious today - requested private room. he also expressed he was thirsty and asked for liberalization of fluid restriction (currently at 1000cc/day). tele overnight - NSR; no NSVT. Review of Systems Constitutional: no fever and no chills Respiratory: + dyspnea on exertion; no cough Cardiovascular: + dyspnea on exertion and + edema; no chest pain and no paroxysmal nocturnal dyspnea Gastrointestinal: + belching and + bloating (improved today); no abdominal pain, no nausea and no vomiting Physical Exam Constitutional: well developed, well nourished and average body habitus; no acute distress and no altered mental status ENMT: external ear and nose normal, oropharynx normal Respiratory: normal respiratory effort, lungs clear to auscultation Auscultation: + diminished lung sounds (bases much more clear today) Cardiovascular: Rate/Rhythm: regular rhythm and + tachycardic Heart Sounds: normal S1, normal S2 and + gallop; no murmur Vessels: + JVD (improved today ), posterior tibial pulses present and dorsalis pedis pulses present Extremities: + edema (2+ b/l) Gastrointestinal (Abdomen): normal bowel sounds, soft, nontender, no hepatosplenomegaly Skin: no rashes, warm and dry Psychiatric: Orientation: alert and oriented x 3 Mood: + anxious mood Results & Data Vital Signs (Past 12 Hours) Vital Signs Temp Pulse Pulse Pulse Resp BP Pulse Ox 08/04/19 19:33 36.7 C 108 H 18 105/76 100 08/04/19 15:42 36.5 C 98 H 18 101/71 98 08/04/19 12:59 90 08/04/19 11:33 36.0 C L 88 16 97/69 L 97 Laboratory Results Laboratory Results - last 24 hr 08/04/19 06:38 Sodium 136 Potassium 3.8 Chloride 103 Carbon Dioxide 26 Anion Gap 7.0 BUN 13 Creatinine 1.23 Est Cr Clr Drug Dosing 92.1 Est GFR ( Amer) 81.1 Est GFR (Non-Af Amer) 70.0 BUN/Creatinine Ratio 10.8 Glucose 91 Calcium 8.3 L Magnesium 2.0 PG Care Time/CCT Total # of Minutes Spent Total Time Spent with Patient: Total time spent is greater than 50% in coordination of care (as documented) at patient's floor/unit and/or counseling patient: (1) CAD (coronary artery disease) Associated angina: without angina Coronary Disease-Associated Artery/Lesion type: [place] artery [place] vs. transplanted heart: [place] heart Qualified Code(s): I25.10 - Atherosclerotic heart disease of [place] coronary artery without angina pectoris (2) Cardiomyopathy Cardiomyopathy type: unspecified Qualified Code(s): I42.9 - Cardiomyopathy, unspecified
[2019-08-05] MEDS: HEPARIN SOD 5,000 UNIT/0.5 ML VIAL SQ SCH ×3 (05:59→21:42)
[2019-08-05 06:51] LABS: Calcium 8.8 mg/dl (8.5-10.1); Creatinine Clr Calc Pharmacy 98.5 ml/min; Est GFR (Non-African American) 75.9; Potassium 3.8 mmol/L (3.5-5.1)
[2019-08-05] MEDS ORDERED: SINCALIDE 1.9 MCG in 0.9 % SODIUM CHLORIDE 100 ML IV SCH (08:15)
--- NOTE | 2019-08-05 10:01 | Nuclear Medicine Report ---
NM hepatobiliary EF CLINICAL HISTORY: gall bladder thickening and edematous wall COMPARISON STUDY: CT scan dated 07/30/2019 FINDINGS: The patient was injected with 5.3 mCi of technetium 99 M Choletec. Sequential anterior imag ing was performed. Hepatic excretion appeared unremarkable. There is normal passage of activity into small bowel. The gallbladder was first visualized on the 40 minute image. At 1 hour, the patient was administered 1.9 mcg of sincalide utilizing a 30 minute infusion. The gallbladder ejection fraction w as normal measuring 81%. IMPRESSION: 1. Normal study. No evidence of cystic duct obstruction. Normal gallbladder ejection fraction of 81%. Electronically signed by: Iván Long M.D. 08/05/2019 10:00 AM
[2019-08-05] MEDS: FUROSEMIDE 100 MG in DEXTROSE 5% 90 ML IV SCH ×2 (10:10→20:44)
[2019-08-05] MEDS: PANTOprazole 40 MG TAB PO SCH (11:02)
[2019-08-05] MEDS: ATORVASTATIN 40 MG TAB PO SCH (11:02)
[2019-08-05] MEDS: POTASSIUM CHLORIDE 20 MEQ TABCR PO SCH ×2 (11:02→19:46)
[2019-08-05] MEDS: LISINOPRIL 5 MG TAB PO SCH (11:02)
[2019-08-05] MEDS: MAGNESIUM OXIDE 400 MG TAB PO SCH ×2 (11:02→19:46)
[2019-08-05] MEDS: ASPIRIN 81 MG ECTAB PO SCH (11:03)
[2019-08-05] MEDS: OMEGA-3 (PURIFIED FISH OIL) 1 GM CAP PO SCH ×2 (11:03→19:45)
[2019-08-05] MEDS: [UNRECOGNIZED DRUG - OTHER] PO SCH (11:03)
[2019-08-05] MEDS: [UNRECOGNIZED DRUG - OTHER] PO SCH ×3 (11:04→19:46)
[2019-08-05] MEDS: carvediloL 6.25 MG TAB PO SCH ×2 (11:05→20:45)
--- NOTE | 2019-08-05 12:23 | Cardiology Progress Note ---
Date of Service August 05, 2019 Assessment & Plan (1) CHF (congestive heart failure): He presents in congestive heart failure with compatible symptoms starting perhaps 5 weeks prior to admission, that was treated as a bronchitis or pulmonary condition. He did not have edema then so I cannot tell if that was correct and he has subsequently developed congestive heart failure although it is possible that these symptoms were caused by congestive heart failure from the beginning. He needs to be treated with diuresis as well as fluid and salt restriction and we have been evaluating him for a cause of his cardiomyopathy although so far it appears to be idiopathic. His studies have been negative including his protein electrophoresis and GIOVANY. I would continue diuresis, he is diuresing well at the moment on IV Lasix but still seems to have a little ways to go. (2) Cardiomyopathy: He has global hypokinesis of a severe extent, his left ventricular ejection fraction on admission was 15 to 20% and he had right ventricular involvement as well which could be secondary to his left ventricular dysfunction. The cause was not clear but it was worrisome that his troponin was rising. Catheterization did not show significant disease although he did have been minor coronary disease not related to his cardiomyopathy. I did repeat his echo to look at his left ventricular and right ventricular function, especially in light of his rising troponin after admission, and his left ventricular function appeared to be about the same (markedly reduced), his right-sided pressures appeared to be a little bit better as assessed by inferior vena cava c ollapse. Over the long run we need to try to titrate his beta-jayden and GIOVANY inhibitor however his blood pressure is borderline. He does not have symptoms of hypotension and I did increase his carvedilol to 6.25 mg twice a day, he remains on lisinopril 2.5 mg daily. Since he has tolerated the higher dose of carvedilol I am going to increase his lisinopril to 5 mg daily starting today. (3) Elevated troponin: His troponin had increased significantly following arrival (It was only 0.276 on arrival, that evening it was 9.5 to and early the next morning 12.1). This was really not in keeping with his symptoms of heart failure which suggest a much longer time course, however his coronary anatomy does not support ischemia. His troponin was quickly back down to a little over 1, however this may indicate a component of ongoing myocarditis. That does not alter our therapy. (4) NSVT (nonsustained ventricular tachycardia): He has had several episodes of nonsustained ventricular tachycardia since arrival. There were 2 episodes which are both monomorphic, one 9 beats and one 10 beats in duration. Subsequently he had another 4 beat run. The heart rate ranges from 150 to 170 bpm. This is worrisome with his cardiomyopathy. He will certainly need beta-blockade long-term which we can gradually titrate which may help with the ventricular tachycardia however we need to arrange a LifeVest upon discharge, he has been fitted for it and although there may be some technical difficulties I am sure that will be straightened out before discharge. (5) CAD (coronary artery disease): He does have coronary artery disease however it is minor. He has risk factors (including family history) and given his age I would treat him with risk factor modification and I would continue a statin given his known disease. Aspirin may be reasonable although I believe debatable. Certainly his coronary disease does not have anything to do with his cardiomyopathy. Subjective From the heart failure standpoint I believe he is feeling better. He is not complaining of shortness of breath and his edema is improved. He was not feeling well however from the GI standpoint, having just gotten back from his HIDA scan. He was not having nausea or vomiting and he was fatigued after the test. No palpitations. He did have his LifeVest delivered, evidently there was some issue with the one that was first delivered and it is being replaced. Physical Exam Physical Exam: Constitutional: Alert, cooperative and in no distress. Pulmonary: Clear to auscultation bilaterally. Cardiac: Regular rhythm with no murmur, gallop or rub. Abdomen: Soft, nontender with normal bowel sounds. Extremities: +2 pedal and pretibial edema, no edema evident above the knee. Skin: No rash, ecchymoses or petechiae. Results & Data Vital Signs (Past 12 Hours) Vital Signs Temp Pulse Pulse Pulse Resp BP Pulse Ox 08/05/19 10:36 86 08/05/19 10:02 36 C L 100 H 24 96 08/05/19 03:19 36.6 C 89 18 101/71 97 Laboratory Results Abnormal lab results 08/05/19 Range/Units 05:49 Sodium 135 L (136-145) mmol/L Diagnostic Findings Telemetry: Sinus rhythm, no significant arrhythmia overnight PG Care Time/CCT Total # of Minutes Spent Total Time Spent with Patient: Total time spent is greater than 50% in coordination of care (as documented) at patient's floor/unit and/or counseling patient: (1) CHF (congestive heart failure) Heart failure chronicity: unspecified Heart failure type: unspecified Qualified Code(s): I50.9 - Heart failure, unspecified (2) Cardiomyopathy Cardiomyopathy type: unspecified Qualified Code(s): I42.9 - Cardiomyopathy, unspecified (3) CAD (coronary artery disease) Coronary Disease-Associated Artery/Lesion type: [place] artery [place] vs. transplanted heart: [place] heart Associated angina: without angina Qualified Code(s): I25.10 - Atherosclerotic heart disease of [place] coronary artery without angina pectoris
[2019-08-05] MEDS: ACETAMINOPHEN 325 MG TAB PO PRN (13:19)
--- NOTE | 2019-08-05 13:41 | Hospitalist Progress Note ---
Date of Service August 05, 2019 Assessment & Plan (1) Acute systolic CHF (congestive heart failure): EF 15-20%, severe LV dysfunction. Idiopathic. It is non-ischemic as heart cath on 07/29 was non-obstructive. SPEP (to r/o MM), GIOVANY (to r/o sarcoid), etc negative. Consider cardiac MRI following d/c to r/o infiltrative disease/other. Defer to cardiology. - LifeVest has been delivered by company specialty sales representative. - Will switch ACEi to Entresto if cardiology ok with it. - Continue beta-jayden and diuresis. (2) Cardiomyopathy: Nonischemic. - See above in "acute systolic CHF." (3) NSVT (nonsustained ventricular tachycardia): Multiple runs of NSVT during the stay. Thus, LifeVest has been requested and was delivered. - If future outpatient echos continue to show depressed EF <30% over time he would then he potentially would be a candidate for pacer/ICD. - Defer that to cardiology. (4) CAD (coronary artery disease): Minimal non-obstructive LAD disease on heart cath ib 07/29. - Cont statin, beta-jayden, Entresto, ASA. (5) Elevated troponin: NOT due to ACS. Doubt that simple myocardial demand ischemia caused the troponin rise to peak of 12. Myocarditis was entertained as a possible etiology. Either way the troponin peaked and fell quickly. - No further needs (6) Bloating: Suspect some element of bloating is due to body wall edema, ascites, etc. - HIDA scan on 08/05 was normal. - Improving with diuresis. - Monitor (7) DVT prophylaxis: Heparin 5000 TID Subjective Reports some RUQ pain after his HIDA scan. Reports edema is minimal in the feet. Reports no fevers/chills, chest pain, shortness of breath, abdominal pain, nausea, or vomiting. Physical Exam Constitutional: WD/WN, vitals as above Eyes: EOM intact bilaterally; no conjunctival abnormality ENMT: external ear and nose normal, oropharynx normal Neck: trachea midline, no thyromegaly normal visual inspection Respiratory: normal respiratory effort, lungs clear to auscultation no respiratory distress Cardiovascular: RRR, no murmur, no edema Vessels: no JVD Extremities: no edema Gastrointestinal (Abdomen): Inspection/Auscultation: abdomen normal to inspection; abdomen not distended Musculoskeletal: no cyanosis or clubbing, extremities motor strength 5/5 Skin: no rashes, warm and dry Neurologic: moves all extremities and awake Psychiatric: Orientation: alert, oriented to person and cooperative Results & Data Vital Signs (Past 12 Hours) Vital Signs Temp Pulse Pulse Pulse Resp BP Pulse Ox 08/05/19 10:36 86 08/05/19 10:02 36 C L 100 H 24 96 08/05/19 03:19 36.6 C 89 18 101/71 97 PG Care Time/CCT Total # of Minutes Spent Total Time Spent with Patient: Total time spent is greater than 50% in coordination of care (as documented) at patient's floor/unit and/or counseling patient: (1) Cardiomyopathy Cardiomyopathy type: unspecified Qualified Code(s): I42.9 - Cardiomyopathy, unspecified (2) CAD (coronary artery disease) Coronary Disease-Associated Artery/Lesion type: [place] artery [place] vs. transplanted heart: [place] heart Associated angina: without angina Qualified Code(s): I25.10 - Atherosclerotic heart disease of [place] coronary artery without angina pectoris
--- NOTE | 2019-08-05 14:56 | Surgery Progress Note ---
Date of Service August 05, 2019 Assessment & Plan (1) Abdominal pain in male: Abdominal pain on the lateral aspect of his right upper abdomen. HIDA scan was completely normal ruling out acute cholecystitis No indication for surgical intervention at this time Pain may be due to liver capsular distention or gallbladder wall thickening due to CHF and fluid overload Surgical intervention in this patient with significantly reduced left ventricular ejection fraction would be very risky and would like to avoid that if at all possible. If the gallbladder is felt to be an issue despite the normal HIDA scan and a percutaneous cholecystostomy tube would be a better option Subjective Is having some discomfort more to the right lateral aspect of his abdomen at the present time. It began after his HIDA scan Denies nausea and vomiting Reports having had 9 L of fluid removed since admission Physical Exam Gastrointestinal (Abdomen): Inspection/Auscultation: normal bowel sounds; abdomen not distended Percussion/Palpation: + abdomen tender (Right lateral abdominal wall in the subcostal region) and abdomen soft Results & Data Vital Signs (Past 12 Hours) Vital Signs Temp Pulse Pulse Pulse Resp BP Pulse Ox 08/05/19 10:36 86 08/05/19 10:02 36 C L 100 H 24 96 08/05/19 03:19 36.6 C 89 18 101/71 97 Laboratory Results 08/05/19 Range/Units 05:49 Sodium 135 L (136-145) mmol/L Potassium 3.8 (3.5-5.1) mmol/L Chloride 103 (98-107) mmol/L Carbon Dioxide 25 (21-32) mmol/L Anion Gap 7.0 (3-11) BUN 15 (7-18) mg/dl Creatinine 1.15 (0.6-1.4) mg/dl Est Cr Clr Drug Dosing 98.5 ml/min Est GFR ( Amer) 88.0 Est GFR (Non-Af Amer) 75.9 BUN/Creatinine Ratio 13.0 (10-20) Glucose 96 (70-99) mg/dl Calcium 8.8 (8.5-10.1) mg/dl Diagnostic Findings NM hepatobiliary EF CLINICAL HISTORY: gall bladder thickening and edematous wall COMPARISON STUDY: CT scan dated 07/30/2019 FINDINGS: The patient was injected with 5.3 mCi of technetium 99 M Choletec. Sequential anterior imaging was performed. Hepatic excretion appeared unremarkable. There is normal passage of activity into small bowel. The gallbladder was first visualized on the 40 minute image. At 1 hour, the patient was administered 1.9 mcg of sincalide utilizing a 30 minute infusion. The gallbladder ejection fraction was normal measuring 81%. IMPRESSION: 1. Normal study. No evidence of cystic duct obstruction. Normal gallbladder ejection fraction of 81%.
[2019-08-05] MEDS: TRAMADOL HCL 50 MG TABLET PO PRN ×2 (15:31→21:42)
--- NOTE | 2019-08-05 16:46 | Heart Failure Progress Note ---
Date of Service August 05, 2019 Assessment & Plan (1) Acute systolic CHF (congestive heart failure): (2) NSVT (nonsustained ventricular tachycardia): (3) Cardiomyopathy: 1. Acute systolic CHF: Patient is improving although he still examined hypervolemic today. He is diuresing quite well on Lasix drip (-9 L) and his weight is below his typical baseline. Anticipate transition off Lasix drip in the next 24-48 hours. Maintain net goal of negative 1 to 2 L per day. Continue daily standing weights. Continue strict I&Os. Recommend low-sodium diet, less than 2000 mg daily. Continue fluid restriction, less than 1500 mL per day. The heart failure program was discussed in detail with the patient and his mother. They are agreeable to following with the program. Anticipate follow-up within 7 days of discharge in the office. 2. Cardiomyopathy: He has severe left systolic dysfunction, EF 15-20%. Cardiac catheterization did not show significant obstructive disease there for ischemia has been ruled out. Secondary workup so far has been negative. Continue appropriate guideline based medical therapy including carvedilol 6.25 mg BID and lisinopril 5 mg daily. May consider transitioning to Entresto 24/26 mg prior discharge. He will require a 36 hour wash out period off Lisinopril. He will need close monitoring in the setting of hypotension. Recommend case management look into his co-pay prior to discharge. He should enroll in [employer] and apply for the [employer] assistance program is his [id number] cost is not affordable. We will continue to titrate him as his blood pressure and heart rate allow. Patient has had several episodes of nonsustained ventricular tachycardia during this admission. LifeVest has been recommended at discharge. One was delivered to the room however it is malfunctioning. Patient has requested a new Life Vest be delivered. Disposition: Anticipate outpatient follow-up with heart failure program within 7 days of discharge. Repeat BMP, magnesium, Pro-BNP prior to appointment. We will continue to follow during hospitalization. Subjective Mr. Hunt is resting comfortably in his bed. His mother is at the bedside. He is feeling significantly improved compared to last week. He reports significant improvement in his dyspnea as well as lower extremity edema. His abdominal discomfort is improved since the weekend. He had a HIDA scan this morning that was normal. He is net negative 9 L so far this admission and his weight has dropped from 229 lb to 211 lb. He remains on Lasix drip at this time. His fluid restriction has been changed from 1000 mL per day to 1500 mL per day. He has been started on carvedilol and titrated to 6.25 mg BID and was recently initiated on lisinopril 5 mg daily. He is tolerating both medications well without adverse effects. He is hypotensive but asymptomatic. He dismissed the physical therapist when offered earlier today. Kidney function and electrolytes are stable. He denies chest tightness/discomfort, orthopnea, PND, dizziness or lightheadedness. Physical Exam Physical Exam: Constitutional: Alert, oriented, in no acute distress HEENT: Head is atraumatic and normocephalic. EOMs intact. Sclera anicteric. Face is symmetric. No perioral cyanosis. Mucous membranes moist. Neck: Supple, no JVD Pulmonary: Normal respiratory effort, clear to auscultation bilaterally Cardiac: Regular rate and rhythm. Normal S1 and S2, no gallops, no rubs, no murmurs Extremities: 2+ radial pulses bilaterally. 2+ posterior tibialis pulses kyle aterally. 1+ pitting edema at the ankles.. No cyanosis or clubbing. Abdomen: Normal bowel sounds, soft, diffusely tender, no abdominal mass palpated Skin: Normal skin color, turgor, and pigmentation, no rash, no skin lesions Neurological: Patient is awake, alert, and oriented. Pleasant and cooperative. Answers questions appropriately. Speech is clear. Normal movement in all 4 extremities. Gait pattern not assessed Results & Data Vital Signs (Past 12 Hours) Vital Signs Temp Pulse Pulse Pulse Resp BP Pulse Ox 08/05/19 15:27 97.7 F 99 H 18 90/65 L 96 08/05/19 14:55 97 H 08/05/19 12:00 107/64 08/05/19 10:36 86 08/05/19 10:02 96.8 F L 100 H 24 96 PG Care Time/CCT Total # of Minutes Spent Total Time Spent with Patient: Total time spent is greater than 50% in coordination of care (as documented) at patient's floor/unit and/or counseling patient: (1) Cardiomyopathy Cardiomyopathy type: unspecified Qualified Code(s): I42.9 - Cardiomyopathy, unspecified
[2019-08-06] MEDS: HEPARIN SOD 5,000 UNIT/0.5 ML VIAL SQ SCH ×3 (05:20→22:42)
[2019-08-06 06:17] LABS: BUN Creatinine Ratio 14.6 (10-20); Calcium 8.7 mg/dl (8.5-10.1); Creatinine Clr Calc Pharmacy 96.9 ml/min; Est GFR (African American) 86.1; Est GFR (Non-African American) 74.3; Potassium 4.5 mmol/L (3.5-5.1)
[2019-08-06 06:20] LABS: Phosphorus 3.3 mg/dl (2.5-4.9)
[2019-08-06] MEDS: FUROSEMIDE 100 MG in DEXTROSE 5% 90 ML IV SCH (06:40)
[2019-08-06] MEDS: carvediloL 6.25 MG TAB PO SCH ×2 (07:46→20:27)
[2019-08-06] MEDS: ASPIRIN 81 MG ECTAB PO SCH (07:47)
[2019-08-06] MEDS: PANTOprazole 40 MG TAB PO SCH (07:47)
[2019-08-06] MEDS: OMEGA-3 (PURIFIED FISH OIL) 1 GM CAP PO SCH ×2 (07:48→20:27)
[2019-08-06] MEDS: POTASSIUM CHLORIDE 20 MEQ TABCR PO SCH ×2 (07:48→20:28)
[2019-08-06] MEDS: ATORVASTATIN 40 MG TAB PO SCH (07:48)
[2019-08-06] MEDS: LISINOPRIL 5 MG TAB PO SCH (07:49)
[2019-08-06] MEDS: [UNRECOGNIZED DRUG - OTHER] PO SCH (07:50)
[2019-08-06] MEDS: MAGNESIUM OXIDE 400 MG TAB PO SCH ×2 (07:50→20:28)
[2019-08-06] MEDS: [UNRECOGNIZED DRUG - OTHER] PO SCH ×3 (07:51→20:28)
[2019-08-06] MEDS ORDERED: ONDANSETRON INJ 2 MG/ML 2 ML VIAL IV PRN (08:38)
[2019-08-06] MEDS ORDERED: MoRPHine SULFATE 4 MG/ML 1 ML CARP\\VIAL IV PRN (08:39)
--- NOTE | 2019-08-06 10:50 | Cardiology Progress Note ---
Date of Service August 06, 2019 Assessment & Plan (1) CHF (congestive heart failure): He presents in congestive heart failure with compatible symptoms starting perhaps 5 weeks prior to admission, that was treated as a bronchitis or pulmonary condition. He did not have edema then so I cannot tell if that was correct and he has subsequently developed congestive heart failure although it is possible that these symptoms were caused by congestive heart failure from the beginning. He needs to be treated with diuresis as well as fluid and salt restriction and we have been evaluating him for a cause of his cardiomyopathy although so far it appears to be idiopathic. His studies have been negative including his protein electrophoresis and GIOVANY. I would continue diuresis, he was diuresing well on IV Lasix but still seems to have a little ways to go. I agree with converting him to oral to see whether we can continue gentle diuresis on oral medications. (2) Cardiomyopathy: He has global hypokinesis of a severe extent, his left ventricular e jection fraction on admission was 15 to 20% and he had right ventricular involvement as well which could be secondary to his left ventricular dysfunction. The cause was not clear but it was worrisome that his troponin was rising. Catheterization did not show significant disease although he did have been minor coronary disease not related to his cardiomyopathy. I did repeat his echo to look at his left ventricular and right ventricular function, especially in light of his rising troponin after admission, and his left ventricular function appeared to be about the same (markedly reduced), his right-sided pressures appeared to be a little bit better as assessed by inferior vena cava collapse. Over the long run we need to try to titrate his beta-jayden and GIOVANY inhibitor however his blood pressure is borderline. He did have a drop in blood pressure starting with his increased dose of lisinopril yesterday, prompting them to hold his carvedilol for 2 doses. I do not want to hold his beta- jayden, I am going to decrease his lisinopril back to 2.5 mg daily however he did receive it today. I think we will need to send him home on carvedilol 6.25 mg twice daily and lisinopril 2.5 mg daily, as an outpatient we will try to titrate these gradually. (3) Elevated troponin: His troponin had increased significantly following arrival (It was only 0.276 on arrival, that evening it was 9.5 to and early the next morning 12.1). This was really not in keeping with his symptoms of heart failure which suggest a much longer time course, however his coronary anatomy does not support ischemia. His troponin was quickly back down to a little over 1, however this may indicate a component of ongoing myocarditis. That does not alter our therapy. (4) NSVT (nonsustained ventricular tachycardia): He has had several episodes of nonsustained ventricular tachycardia since arrival. There were 2 episodes which are both monomorphic, one 9 beats and one 10 beats in duration. Subsequently he had another 4 beat run. The heart rate ranges from 150 to 170 bpm. This is worrisome with his cardiomyopathy. He will certainly need beta-blockade long-term which we can gradually titrate which may help with the ventricular tachycardia however we need to arrange a LifeVest upon discharge, he has been fitted for it and although there may be some technical difficulties I am sure that will be straightened out before discharge. (5) CAD (coronary artery disease): He does have coronary artery disease however it is minor. He has risk factors (including family history) and given his age I would treat him with risk factor modification and I would continue a statin given his known disease. Aspirin may be reasonable although I believe debatable. Certainly his coronary disease does not have anything to do with his cardiomyopathy. Subjective He seems to be feeling a little better today, his legs are definitely improved, he is not short of breath, but he still has his GI difficulty Physical Exam Physical Exam: Constitutional: Alert, cooperative and in no distress. Pulmonary: Clear to auscultation bilaterally. Cardiac: Regular rhythm with no murmur, gallop or rub. Abdomen: Soft, nontender with normal bowel sounds. Extremities: +2 pedal and pretibial edema, no edema evident above the knee. Skin: No rash, ecchymoses or petechiae. Results & Data Vital Signs (Past 12 Hours) Vital Signs Temp Pulse Pulse Resp BP Pulse Ox 08/06/19 08:53 92 H 08/06/19 07:37 36.6 C 96 H 20 89/66 L 98 08/06/19 03:53 93 H 19 92/75 L 98 08/05/19 23:27 91 H 19 90/64 L 99 Laboratory Results Abnormal lab results 08/06/19 Range/Units 05:33 Sodium 134 L (136-145) mmol/L Glucose 113 H (70-99) mg/dl NT-Pro-B Natriuret Pep 4239 H (0-450) pg/ml Diagnostic Findings Telemetry: Sinus rhythm in the 80s to 90s, no further VT PG Care Time/CCT Total # of Minutes Spent Total Time Spent with Patient: Total time spent is greater than 50% in coordination of care (as documented) at patient's floor/unit and/or counseling patient: (1) CHF (congestive heart failure) Heart failure chronicity: unspecified Heart failure type: unspecified Qualified Code(s): I50.9 - Heart failure, unspecified (2) Cardiomyopathy Cardiomyopathy type: unspecified Qualified Code(s): I42.9 - Cardiomyopathy, unspecified (3) CAD (coronary artery disease) Coronary Disease-Associated Artery/Lesion type: [place] artery [place] vs. transplanted heart: [place] heart Associated angina: without angina Qualified Code(s): I25.10 - Atherosclerotic heart disease of [place] coronary artery without angina pectoris
--- NOTE | 2019-08-06 14:30 | Hospitalist Progress Note ---
Date of Service August 06, 2019 Assessment & Plan (1) Acute systolic CHF (congestive heart failure): EF 15-20%, severe LV dysfunction. Idiopathic. It is non-ischemic as heart cath on 07/29 was non-obstructive. SPEP (to r/o MM), GIOVANY (to r/o sarcoid), TSH was 1.5, Lyme were all negative. Consider cardiac MRI following d/c to r/o infiltrative disease/other. Defer to cardiology. - LifeVest has been delivered by company shipping services sales representative. - Will get AM cortisol, celiac, CHILO, thiamine, and selenium - Continue beta-jayden, ACEi, and diuresis. Switch to PO Bumex per discussion with cardiology. (2) Cardiomyopathy: Non-ischemic. - See above in "acute systolic CHF." (3) NSVT (nonsustained ventricular tachycardia): Multiple runs of NSVT during the stay. Thus, LifeVest has been requested and was delivered. - If future outpatient echos continue to show depressed EF <30% over time he would then he potentially would be a candidate for pacer/ICD. (4) CAD (coronary artery disease): Minimal non-obstructive LAD disease on heart cath ib 07/29. - Cont statin, beta-jayden, ACEi, ASA. (5) Elevated troponin: NOT due to ACS. Doubt that simple myocardial demand ischemia caused the troponin rise to peak of 12. Myocarditis was entertained as a possible etiology. Either way the troponin peaked and fell quickly. - No further needs (6) Bloating: Suspect some element of bloating is due to body wall edema, ascites, etc. - HIDA scan on 08/05 was normal. - Worse today, though the patient doesn't want any pain medication because it makes him feel groggy. - Monitor for now; consider repeat u/s if it doesn't improve throughout the day. (7) DVT prophylaxis: Heparin 5000 TID Subjective Still having RUQ pain. It has not changed much since yesterday. Had some nausea from the pain medications. Reports no fevers/chills, chest pain, shortness of breath, or vomiting. Physical Exam Constitutional: WD/WN, vitals as above Eyes: EOM intact bilaterally; no conjunctival abnormality ENMT: external ear and nose normal, oropharynx normal Neck: trachea midline, no thyromegaly normal visual inspection Respiratory: normal respiratory effort, lungs clear to auscultation no respiratory distress Cardiovascular: Rate/Rhythm: regular rate and regular rhythm Heart Sounds: normal S1 and normal S2; no murmur Vessels: no JVD Extremities: + edema (In ankle and lesser in the rasheed) Gastrointestinal (Abdomen): Inspection/Auscultation: abdomen normal to inspection; abdomen not distended Musculoskeletal: no cyanosis or clubbing, extremities motor strength 5/5 Skin: no rashes, warm and dry Neurologic: moves all extremities and awake Psychiatric: Orientation: alert, oriented to person and cooperative Results & Data Vital Signs (Past 12 Hours) Vital Signs Temp Pulse Pulse Resp BP Pulse Ox 08/06/19 11:27 36.3 C L 101 H 22 89/66 L 95 08/06/19 08:53 92 H 08/06/19 07:37 36.6 C 96 H 20 89/66 L 98 08/06/19 03:53 93 H 19 92/75 L 98 PG Care Time/CCT Total # of Minutes Spent Total Time Spent with Patient: Total time spent is greater than 50% in coordination of care (as documented) at patient's floor/unit and/or counseling patient: (1) Cardiomyopathy Cardiomyopathy type: unspecified Qualified Code(s): I42.9 - Cardiomyopathy, unspecified (2) CAD (coronary artery disease) Coronary Disease-Associated Artery/Lesion type: [place] artery [place] vs. transplanted heart: [place] heart Associated angina: without angina Qualified Code(s): I25.10 - Atherosclerotic heart disease of [place] coronary artery without angina pectoris
--- NOTE | 2019-08-06 16:25 | Surgery Progress Note ---
Date of Service August 06, 2019 Assessment & Plan (1) Abdominal pain in male: Etiology of discomfort is unclear although now seems to have a positional quality to it No evidence of gallbladder disease based on a HIDA scan No indication for surgical intervention at this time Subjective Still has some mild right lateral abdominal discomfort underneath the rib edge Has a positional quality to it Denies nausea and vomiting Tolerating diet Physical Exam Gastrointestinal (Abdomen): Inspection/Auscultation: normal bowel sounds; abdomen not distended Percussion/Palpation: + abdomen tender (Lateral abdominal wall on the right at the rib edge unchanged) and abdomen soft Results & Data Vital Signs (Past 12 Hours) Vital Signs Temp Pulse Pulse Resp BP Pulse Ox 08/06/19 15:20 36.3 C L 90 22 87/61 L 99 08/06/19 14:51 99 H 08/06/19 11:27 36.3 C L 101 H 22 89/66 L 95 08/06/19 08:53 92 H 08/06/19 07:37 36.6 C 96 H 20 89/66 L 98 Laboratory Results 08/06/19 Range/Units 05:33 Sodium 134 L (136-145) mmol/L Potassium 4.5 D (3.5-5.1) mmol/L Chloride 102 (98-107) mmol/L Carbon Dioxide 23 (21-32) mmol/L Anion Gap 9.0 (3-11) BUN 17 (7-18) mg/dl Creatinine 1.17 (0.6-1.4) mg/dl Est Cr Clr Drug Dosing 96.9 ml/min Est GFR ( Amer) 86.1 Est GFR (Non-Af Amer) 74.3 BUN/Creatinine Ratio 14.6 (10-20) Glucose 113 H (70-99) mg/dl Calcium 8.7 (8.5-10.1) mg/dl Phosphorus 3.3 (2.5-4.9) mg/dl Magnesium 2.0 (1.8-2.4) mg/dl NT-Pro-B Natriuret Pep 4239 H (0-450) pg/ml
[2019-08-06] MEDS: BUMETANIDE 1 MG TAB PO SCH (17:04)
[2019-08-07] MEDS: HEPARIN SOD 5,000 UNIT/0.5 ML VIAL SQ SCH (05:38)
--- NOTE | 2019-08-07 06:36 | Surgery Progress Note ---
Date of Service August 07, 2019 Assessment & Plan (1) Abdominal pain in male: Pain is slowly resolving No evidence of acute cholecystitis No indication for surgical intervention at this time We will sign off for now. Please let me know if there is anything else that we can do to help Subjective Pain on right side has decreased Denies nausea and vomiting Think she ate a little too much last night for supper and developed some bloating but no everette nausea Physical Exam Gastrointestinal (Abdomen): Inspection/Auscultation: normal bowel sounds; abdomen not distended Percussion/Palpation: abdomen soft; abdomen nontender Results & Data Vital Signs (Past 12 Hours) Vital Signs Temp Pulse Pulse Pulse Resp BP Pulse Ox 08/07/19 03:50 36.3 C L 83 19 93/64 L 98 08/06/19 23:32 36.3 C L 84 19 95/64 L 99 08/06/19 22:20 94 H 08/06/19 20:25 93 H 15 92/64 L 96 08/06/19 19:17 36.4 C L 101 H 18 89/60 L 96
[2019-08-07] MEDS: PANTOprazole 40 MG TAB PO SCH (07:52)
[2019-08-07 07:55] LABS: Hematocrit (blood only) 42.8 % (42-52); Hemoglobin 14.4 g/dL (14.0-18.0); Mean Corpuscular Hemoglobin 33.5 pg (25-34); Mean Corpuscular Hgb Conc 33.6 g/dL (32-36); Mean Corpuscular Volume 99.5 fL (80-100); Mean Platelet Volume 9.9 fL (7.4-10.4); Platelet Count 214 K/uL (130-400); RDW Standard Deviation 46.6 fL (36.4-46.3); White Blood Count 6.21 K/uL (4.8-10.8)
[2019-08-07 08:17] LABS: BUN Creatinine Ratio 14.5 (10-20); Creatinine Clr Calc Pharmacy 88.5 ml/min; Est GFR (African American) 77.3; Est GFR (Non-African American) 66.7; Magnesium 2.1 mg/dl (1.8-2.4); Potassium 4.4 mmol/L (3.5-5.1)
[2019-08-07] MEDS: BUMETANIDE 1 MG TAB PO SCH (08:17)
[2019-08-07] MEDS: ATORVASTATIN 40 MG TAB PO SCH (08:17)
[2019-08-07 08:18] LABS: Phosphorus 3.5 mg/dl (2.5-4.9)
[2019-08-07] MEDS: MAGNESIUM OXIDE 400 MG TAB PO SCH (08:18)
[2019-08-07] MEDS: POTASSIUM CHLORIDE 20 MEQ TABCR PO SCH (08:18)
[2019-08-07] MEDS: OMEGA-3 (PURIFIED FISH OIL) 1 GM CAP PO SCH (08:18)
[2019-08-07] MEDS: ASPIRIN 81 MG ECTAB PO SCH (08:19)
[2019-08-07] MEDS: [UNRECOGNIZED DRUG - OTHER] PO SCH (08:19)
[2019-08-07] MEDS: [UNRECOGNIZED DRUG - OTHER] PO SCH (08:20)
[2019-08-07] MEDS ORDERED: LISINOPRIL 2.5 MG TAB PO SCH (09:00)
[2019-08-07] MEDS: carvediloL 6.25 MG TAB PO SCH (09:01)
--- NOTE | 2019-08-07 17:32 | Discharge Summary ---
Date of Service August 07, 2019 Admission HPI Per Admitting Provider Patient is a 44 years old male without significant past medical history except for bronchitis that was treated with doxycycline, azithromycin and prednisone approximately for the past 5 weeks as an outpatient. Patient states that for the past several days he is gaining weight and his legs are swelling. He has constant urge to burp and feels a lot of pressure in his abdomen and this morning he experienced a lots of chest pain which improved during the day but he still feels congested. Patient has significant family history that he is a grandfather young from the heart issues but he was not sure what was his age when he . Patient gained approximately 10 to 15 pounds in the past several days. He said that his sleep is significantly disturbed because his abdomen is bloated. He reports having regular bowel movements. On occasion patient feels short of breath. Patient reports being exposed to lots of stress lately but does not go further and explanation what was stressed about. Patient reports that he smoked in the past but quit smoking for several years and he drinks only occasionally. He denies any drug abuse. At the present time patient denies fever, chills, chest pain, abdominal pain, frequency, urgency, syncope near syncope, melena hematuria, hemoptysis or bruising. He is pleasant in person and agreeable with treatment. Labs are reviewed: Which shows white blood cell of 9.07, hemoglobin 17.1, hematocrit 50.2, platelets 312, there is no left shift. PT 13, INR 1.3 APTT 26.8, PTT 1. Sodium 132, potassium 4.8, chloride 100, carbon dioxide 21 anion gap 12, BUN 16, creatinine 1.5-previously creatinine was 1.24 on July 24, 2019, GFR 55, lactic acid 2.3, calcium 9.1 magnesium 2.3: Total bili 1.3, AST 33, ALT 20, alkaline phosphatase 122, troponin 0.276, alkaline phosphatase 6646, TSH of 6.25 and free T4 1.54 subclinical hypothyroidism. Urine infection positive for nitrates and trace leukocyte esterase with many epithelial cells over 30 bacteria negative, does not appear to be a clean-catch. CTA of chest to rule out pulmonary embolism shows no evidence of pulmonary embolus, multifocal irregular 8 space opacities within the bilateral mid to lower lung zones, right greater than left, this favors a pneumonia. Small right pleural effusion, mild cardiomegaly. Mild mediastinal lymphadenopathy. This could be reactive. Small amount of ascites. Trace pericardial effusion. Additional decision was made to admit patient for onset congestive heart failure at PCU on telemetry. Principal Diagnosis Dilated cardiomyopathy Discharge Exam Constitutional WD/WN, vitals as above Eyes EOM intact bilaterally; no conjunctival abnormality ENMT external ear and nose normal, oropharynx normal Neck trachea midline, no thyromegaly normal visual inspection Respiratory normal respiratory effort, lungs clear to auscultation no respiratory distress Cardiovascular RRR, no murmur, no edema Rate/Rhythm: regular rate and regular rhythm Heart Sounds: normal S1 and normal S2; no murmur Vessels: no JVD Extremities: + edema (In ankle and lesser in the rasheed) Gastrointestinal (Abdomen) Inspection/Auscultation: abdomen normal to inspection; abdomen not distended Musculoskeletal no cyanosis or clubbing, extremities motor strength 5/5 Skin no rashes, warm and dry Neurologic moves all extremities and awake Psychiatric Orientation: alert, oriented to person and cooperative Discharge Data Allergies Allergy/AdvReac Type Severity Reaction Status Date / Time No Known Allergies Allergy Unverified 07/28/19 14:21 Consultations 07/28/19 16:27 ED Decision to Admit Stat 07/28/19 18:55 Consult Cardiology Routine Consult Case Management - Discharge Planning Routine 07/29/19 09:57 Consult Cardiac Rehabilitation Routine 07/30/19 11:06 Consult Gastroenterology Routine 08/02/19 09:27 Consult MNPG photograph developer Routine 08/02/19 15:25 Consult General Surgery Routine Procedures Performed Operation Date: 07/29/19 12:30 Actual Procedures p Cath, Right and Left Heart - Frederic Padilla MD s Cineradiography w/Routine Exam - Frederic Padilla MD s Ultrasound Vascular Access - Frederic Padilla MD Ordered Studies 07/28/19 14:57 US point of care ultrasound Routine 07/28/19 15:30 CT angio chest PE protocol Stat 07/29/19 12:04 CL Cath Imgs for PACS use only Routine 07/30/19 08:24 CT abd pelvis wo con Stat Hospital Course (1) Acute systolic CHF (congestive heart failure): EF 15-20%, severe LV dysfunction. Idiopathic. It is non-ischemic as heart cath on 07/29 was non-obstructive. SPEP (to r/o MM), GIOVANY (to r/o sarcoid), TSH was 1.5, Lyme were all negative. AM cortisol was normal. - Studies pending include: CHILO, thiamine, selenium, and celiac (ttG) testing as he reported bloating prior to this all starting. - LifeVest has been delivered by company industrial relations representative. - Discharged on Coreg 6.25mg PO BID, lisinopril 2.5mg PO daily, spironolactone 12.5mg PO daily - ASA 81mg & atorvastatin 40mg PO daily - Discharged on Bumex 2mg PO BID with metolazone and potassium supplement if he starts to gain weight just on the Bumex. He will call cardiology office before taking those. BMP next week. (2) Cardiomyopathy: Non-ischemic. - See above in "acute systolic CHF." (3) NSVT (nonsustained ventricular tachycardia): Multiple runs of NSVT during the stay. Thus, LifeVest has been requested and was delivered. - If future outpatient echos continue to show depressed EF <30% over time he would then he potentially would be a candidate for pacer/ICD. (4) CAD (coronary artery disease): Minimal non-obstructive LAD disease on heart cath on 07/29. - Cont statin, beta-jayden, ACEi, ASA. (5) Elevated troponin: NOT due to ACS. Doubt that simple myocardial demand ischemia caused the troponin rise to peak of 12. Myocarditis was entertained as a possible etiology. Either way the troponin peaked and fell quickly. - No further needs (6) Bloating: Suspect some element of bloating is due to body wall edema, ascites, etc. - HIDA scan on 08/05 was normal. - Followed by surgery without any thought that gallbladder needs to be removed. - Getting celiac panel as above in case some of this is attributable to celiac disease. (7) DVT prophylaxis: Heparin 5000 TID Total Time Total Time Spent Total Time Spent (In Minutes): 45 Total Time Includes: Examination of the Patient, Discharge Planning, Medication Reconciliation and Communication With Other Providers Discharge Plan Discharge Items Patient Disposition: Home - Self-Care Reason For Visit: ACUTE ONSET OF CHF, ELEVATED TROPONIN Discharge Diagnosis: New cardiomyopathy and systolic heart failure Activity: Resume your previous activity Exercise/Sports: Gradually increase as tolerated Non-emergency contact: Primary Care Provider and Rim Technician Call non-emergency contact if: you have any medication questions, your symptoms worsen and your temperature is above 101 Follow-up/Referrals: Daniel Batista MD [Physician] - 08/21/19 3:30 pm (Please, follow up at [facility] Card[facility] Office with Dr. Batista on MondayAugust 21 at 3:30 pm. *The office is located in [address] of [facility], next to this hospital. If you need to change this appointment, call the office at [phone].) Rianna Kingston PA-C [Physician Test Developer] - 08/13/19 2:00 pm (Congestive Heart Failure Program Appointment Information MondayAugust 13 at 2:00 pm Early follow up is essential to managing your heart failure. An appointment has been scheduled for you with the [facility] Heart [facility] within 7 days of discharge. Anticipate this visit to be 30-60 minutes long. Please expect a manager background phone call from one of our nurses approximately 48 hours from discharge. They will also be placing an order for lab work to be completed 1-2 days prior to your heart failure follow up appointment. Please be sure to have this done so we can go over the results when you come in. Office Location The cardiology office building is located in front of the hospital at [address] Bring the following with you to your follow-up doctor appointments: Please bring your daily weight log any discharge paperwork all of your medication bottles with you to this visit. ) Benedict Avalos MD [Primary Care Provider] - 08/15/19 12:55 pm (Please, follow up with Dr. Benedict Avalos on MondayAugust 15 at 12:55 pm. *If you need to change this appointment, call the office at [phone].) Diet: Heart Healthy and Low Sodium (2gm) Addtl Attending Provider Instructions: For your heart failure, we are prescribing you the followin) Carvedilol 6.25 mg two times per day (morning and night) 2) Lisinopril 2.5 mg one time per day 3) Spironolactone 12.5 mg one time per day 4) Bumex 2 mg two times per day (morning and around dinner time or late afternoon) 5) Baby aspirin 81 mg one time per day 6) Atorvastatin 40 mg one time per day If you are gaining weight, getting more swelling, or having trouble breathing, please call the cardiology office. If needed, you can take: 7) Metolazone 2.5 mg 30 minutes before your Bumex dose(s), but DO NOT take it without speaking with someone in the cardiology office. I also gave you a potassium supplement, but do not take it unless you take the metolazone. The cardiology team will check your potassium next week. Addtl Recreational Specialist Provider Instructions: Call your Primary Care doctor if any of the following symptoms or problems start or get worse: * Shortness of breath or difficulty breathing * Wake up at night short of breath * Chest pain * Cough * Swelling of your hands, feet, or legs * More fatigued or tired with your normal activity * Palpitations - sudden fast heart beats WEIGHT * Weigh yourself every morning after using the bathroom. * Use the same scale. * Wear the same amount of clothing. * Write your weight down on a chart. * Call your Primary Care doctor if you gain more than 2-3 pounds in 1-2 days. MEDICATIONS * Use this discharge instruction sheet for medication instructions. * Take your medications at the time your doctor ordered. * Do not skip a dose of your medicines. * If you miss a dose of medicine, take it as soon as possible, but DO NOT DOUBLE A DOSE. * Read your medicine information when you get home. * Know all of the side effects of your medicine. If in doubt, ask your ph armacist * Call your Primary Care doctor's office if you have any side effects. * Be sure all of your doctors know what medicine and herbs you take (including cold, flu, and herbal medicine). Take the following with you to your follow-up doctor appointments: * Weight Chart * Medication List * List of questions Do not drink excessive alcohol, beer or wine. Pending Studies at Discharge: Yes (Labs for cardiomyopathy) Stand-Alone Forms: My El[employer], Smoking Cessation Medications and DC Order Prescriptions: New atorvastatin 40 mg Tablet 40 mg PO QAM Qty: 30 RF: 0 carvedilol 6.25 mg Tablet 6.25 mg PO BID Qty: 60 RF: 0 aspirin [Ecotrin Low Strength] 81 mg Tablet,Delayed Release (Dr/Ec) 81 mg PO DAILY Qty: 1 RF: 0 lisinopril 2.5 mg Tablet 2.5 mg PO QAM Qty: 30 RF: 0 bumetanide 2 mg tablet 2 mg PO BID Qty: 60 RF: 0 potassium chloride 20 mEq packet 20 meq PO DAILY PRN (Reason: hypokalemia) Qty: 30 RF: 0 Non Formulary Item [Non-Formulary Patient's Own Med] 1 dose PO QAM Qty: 1 RF: 0 Non Formulary Item [Non-Formulary Patient's Own Med] 1 dose PO TID Qty: 1 RF: 0 spironolactone 25 mg tablet 12.5 mg PO DAILY Qty: 30 RF: 0 metolazone 2.5 mg tablet 2.5 mg PO DAILY PRN (Reason: swelling) Qty: 30 RF: 0 Discharge Orders: Discharge Order (Routine); Ordered 08/07/19 Ordered By: Rupesh Colvin/Other Patient Handouts: Prediabetes, Diabetes Healthy Meals, Diabetes Exercise Benefits, A1C Admission Data Admit Date/Time: 07/28/19 17:44 Attending Provider: Rupesh Clark Admit Provider: Carlton Parks Primary Care Provider: Benedict Avalos Other Providers: Carlton Parks ; Nito Aragon ; Nyasia Ramos ; [facility] ; Pedro Jensen [place] Date/Time DO NOT enter until pt leaves facility: 08/07/19 14:33
== END 2019-08-07 14:33 | disposition home or self-care (01) | DRG 286 ==
LOC: ED 13:37 → SUATTDRO 17:44 → 2S 17:44